=== PATIENT | male | born 1950 | race Caucasian/White ===

== ENCOUNTER 2021-08-26 18:21 | Emergency (ER) | payer OTHER ==
--- OUTSIDE RECORDS SUMMARY | 2021-08-26 18:23 | XMS REPORT | Continuity of Care Document ---
:1950 Author Organization [facility] t Address [address] [place] [address] [address]. [address] [place] [address] Care Team Providers Name Role Phone Julio Joshi MD Primary Care Physician King GEENA MD, C Attending Clinician Tanja QIU Attending Clinician TANJA Attending Clinician Unavailable Payers Payer Name Policy Type Policy Number Effective Date Expiration Date S ource Problems Condition Condition Condition Status Onset Resolution Last Treating Co mments Source Name Details Category Date Date Treatment Clinician Date No known No known Disease Unive rs active active ity of problems problems [facility] Allergies, Adverse Reactions, Alerts Allergy Allergy Status Severity Reaction(s) Onset Inactive Treating Comm ents Source Name Type Date Date Clinician LEVOFLOX DRUG Active Other-Cmnt Univ ers ACIN INGREDI 08-26 ity of 00:00: [place] [facility] MORPHINE DRUG Active Anaphylaxis Uni vers INGREDI 08-26 ity of 00:00: 00 [facility] HYDROMOR DRUG Active Unknown-Cmnt 0 Un anil PHONE INGREDI 08-26 ity of 00:00: [place] 00 [facility] SHELLFIS DRUG Active Unknown-Cmnt 0 Un anil H INGREDI 08-26 ity of DERIVED 00:00: 00 Medical [facility] Hydromor Propensi Active Unknown - 0 Uni vers phone ty to See comments 08-26 ity of adverse 00:00: [place] reaction 00 Medical s Branch Ibuprofe Propensi Active Anaphylaxis 0 U nivers n ty to 08-26 ity of adverse 00:00: [place] reaction 00 Medical s [facility] Levoflox Propensi Active Other - See 0 aggitate d Univers acin ty to comments 1-14 ity of adverse 00:00: [place] reaction 00 [facility] [place] Morphine Propensi Active Anaphylaxis U nivers ty to 1-14 ity of adverse 00:00: [place] reaction Medical [facility] [place] Shellfis Propensi Active Unknown - Uni vers h ty to See comments -14 ity of Derived adverse 00:00: [place] reaction 00 Medical [facility] IBUPROFE DRUG Active Anaphylaxis Uni vers N INGREDI 1-14 ity of 00:00: [place] 00 Medical [place] NO KNOWN Drug Active Univers ALLERGIE Class ity of S [facility] Social History Social Habit Start Date Stop Date Quantity Comments Source Exposure to Not sure [facility] SARS-CoV-2 (event) [facility] Tobacco use and 2021-08-26 2021-08-26 Never used [facility] exposure 00:00:00 00:00:00 [facility] Sex Ass[birth year] [facility] 00:00:00 00:00:00 [facility] Smoking Status Start Date Stop Date Source Never smoker [facility] Medications Ordered Filled Start Stop Current Ordering Indication Dosage Frequency Signature Comments Components Source Medication Medication Date Date Medication? Clinician (SIG) Name Name ADRIANETUS Yes Univers SOLOSTAR 1-08 ity of U-100 00:00: [place] INSULIN 100 00 Medical unit/mL (3 Branch mL) injection JARDIANCE 2020-08 Yes Univers 10 mg 2-21 ity of 00:00: [place] 00 [facility] [place] metFORMIN 2020-08 Yes Univers 1,000 mg 2-21 ity of tablet 00:00: [place] 00 [facility] busPIRone 2020-08 Yes Univers 7.5 mg 2-21 ity of tablet 00:00: [place] 00 Medical [place] PARoxetine 2020-08 Yes Univers 40 mg 2-21 ity of tablet 00:00: [place] 00 [facility] donepeziL 2020-08 Yes Univers 10 mg 2-17 ity of tablet 00:00: [place] [facility] [place] HUMALOG 2020-08 Yes Univers KWIKPEN 1-27 ity of INSULIN 100 00:00: [place] unit/mL 00 Medical injection Branch tamsulosin 2020-08 Yes Univers 0.4 mg 24 1-27 ity of hr capsule 00:00: [place] 00 [facility] Vital Signs Vital Name Observation Time Observation Value Comments Source Systolic blood 2021-08-26 17:05:00 139 mm[Hg] Univer sity of pressure [facility] Diastolic blood 2021-08-26 17:05:00 81 mm[Hg] Unive rsity of pressure [facility] Heart rate 2021-08-26 17:05:00 80 [facility] 2021-08-26 17:05:00 36.78 [place] Respiratory rate 2021-08-26 17:05:00 17 /min [facility] Body height 2021-08-26 17:05:00 175.3 cm [facility] Body weight 2021-08-26 17:05:00 118.616 kg [facility] BMI 2021-08-26 17:05:00 38.62 kg/m2 [facility] Oxygen saturation in 2021-08-26 17:05:00 98 /min [facility] Arterial blood by [facility] Pulse oximetry Branch Procedures This patient has no known procedures. Encounters Start End Encounter Admission Attending Care Care Encounter Source Date/Time Date/Time Type Type Clinicians Facility Department ID 2021-08-26 2021-08-26 Urgent Ac Yu Carl [facility] [id number] [facility] 11:00:00 11:20:00 [facility] [id number] [facility] [id number] Jez as CECILY?BLEA [id number] Oh king [address] MEDICAL OFFICE BUILDING 2021-08-26 2021-08-26 Outpatient Cedrick AGRAWAL [facility] [id number] [facility] 11:00:00 11:00:00 [facility] Results This patient has no known results.
[2021-08-26] MEDS ORDERED: ACETAMINOPHEN 500 MG TAB ONE (20:02)
[2021-08-26 20:14] LABS: Protime INR 1.23
[2021-08-26 20:17] LABS: Absolute Lymphocytes (CBC) 1.1 K/uL (0.7-4.9); Hematocrit 42.1 % (39.6-49.0); Lymphocytes % 21.9 % (15.3-44.8); MPV 8.4 fL (7.6-11.3); RBC Red Blood Cell Count 4.86 M/uL (4.33-5.43)
--- NOTE | 2021-08-26 20:33 | RAD REPORT ---
EXAM DESCRIPTION: Krista Single View08/26/2021 8:21 pm CLINICAL HISTORY: Chest pain COMPARISON: none FINDINGS: The lungs appear clear of acute infiltrate. The heart is normal size IMPRESSION: No acute abnormalities displayed
[2021-08-26 20:36] LABS: Albumin 3.7 g/dL (3.4-5.0); Bilirubin Direct 0.2 mg/dL (0-0.2); Bilirubin Total 0.6 mg/dL (0.2-1.0); Potassium 4.6 mmol/L (3.5-5.1); Protein, Total 7.5 g/dL (6.4-8.2); Troponin High Sensitivity 11.7 pg/mL (<58.9)
[2021-08-26 20:52] LABS: Magnesium 2.1 mg/dL (1.8-2.4)
[2021-08-26 22:17] LABS: Urine Blood Trace-intact (Negative); Urine Glucose 3+ (Negative); Urine Protein Negative (Negative); Urine Specific Gravity >=1.030 (1.005-1.030)
[2021-08-26] MEDS ORDERED: NA CHLORIDE 0.9% 0 ML ONE (22:38)
[2021-08-26] MEDS ORDERED: ONDANSETRON 4 MG/2 ML VIAL ONE (22:46)
[2021-08-26] MEDS ORDERED: NA CHLORIDE 0.9% 1,000 ML ONE (22:47)
[2021-08-26] MEDS ORDERED: ONDANSETRON 4 MG (ODT) TAB ONE (22:54)
[2021-08-26 23:25] LABS: SARS-COV-2 RT PCR POSITIVE (NEGATIVE)
--- NOTE | 2021-08-27 00:32 | EDPHYS ---
Physician Documentation [facility] Name: Marcelino Mccall Age: 71 yrs Sex: Male : 1950 Arrival Date: 08/26/2021 Time: 18:26 Bed 24 Private MD: ED Physician Jorge Griffin HPI: 08/26 22:27 This 71 yrs old Male presents to ER via Ambulatory with complaints of Nausea, Dizziness.mh7 22:27 The patient or guardian reports cough, that is intermittent, described as moderate, mh7 with productive sputum, that is white, flu symptoms, arthralgias, myalgias, Sore throat, congestion. Onset: The symptoms/episode began/occurred 2 day(s) ago. Severity of symptoms: At their worst the symptoms were moderate, 2 day(s) ago, in the emergency department the symptoms have improved, moderately. Modifying factors: The symptoms are alleviated by nothing, the symptoms are aggravated by nothing. Associated signs and symptoms: Pertinent positives: chest pain, with cough, Pertinent negatives: diarrhea, ear ache, fever, rhinorrhea, vomiting. Historical: - Allergies: 19:38 Ibuprofen; ld1 19:38 Iodine; ld1 19:38 Levaquin; ld1 19:38 Morphine; ld1 19:38 Dilaudid; ld1 - Home Meds: 19:38 metformin 1,000 mg Oral tab 1 tab 2 times per day [Active]; Jardiance 10 mg oral tab 1 ld1 tab once daily [Active]; Lantus Sub-Q [Active]; Humalog Sub-Q [Active]; donepezil 10 mg oral tab 1 tab once daily [Active]; buspirone 7.5 mg Oral tab 1 tab 2 times per day [Active]; tamsulosin 0.4 mg oral cap 1 cap once daily [Active]; paroxetine HCl 40 mg oral tab 1 tab once daily [Active]; - PMHx: 19:38 Diabetes mellitus; Liver disease; ld1 - PSHx: 19:38 None; ld1 - Immunization history:: Adult Immunizations not up to date, Client reports having NOT received the Covid vaccine. - Social history:: Smoking status: Patient denies any tobacco usage or history of. Patient/guardian denies using alcohol. ROS: 22:27 Constitutional: Negative for fever, chills, and weight loss, Eyes: Negative for injury, mh7 pain, redness, and discharge, Neck: Negative for injury, pain, and swelling. 22:27 Back: Negative for injury and pain, : Negative for injury, bleeding, discharge, and swelling, MS/Extremity: Negative for injury and deformity, Skin: Negative for injury, rash, and discoloration, Neuro: Negative for headache, weakness, numbness, tingling, and seizure, Psych: Negative for depression, anxiety, suicide ideation, homicidal ideation, and hallucinations, Allergy/Immunology: Negative for hives, rash, and allergies, Endocrine: Negative for neck swelling, polydipsia, polyuria, polyphagia, and marked weight changes, Hematologic/Lymphatic: Negative for swollen nodes, abnormal bleeding, and unusual bruising. 22:27 Abdomen/GI: Negative for abdominal pain, vomiting, diarrhea, constipation, abdominal cramps, abdominal distension, anorexia, dysphagia, hematemesis, black/tarry stool, rectal pain, rectal bleeding, bowel incontinence, flatulence. Exam: 22:27 Constitutional: This is a well developed, well nourished patient who is awake, alert, mh7 and in no acute distress. Head/Face: Normocephalic, atraumatic. Eyes: Pupils equal round and reactive to light, extra-ocular motions intact. Lids and lashes normal. Conjunctiva and sclera are non-icteric and not injected. Cornea within normal limits. Periorbital areas with no swelling, redness, or edema. ENT: Nares patent. No nasal discharge, no septal abnormalities noted. Tympanic membranes are normal and external auditory canals are clear. Oropharynx with no redness, swelling, or masses, exudates, or evidence of obstruction, uvula midline. Mucous membranes moist. Neck: Trachea midline, no thyromegaly or masses palpated, and no cervical lymphadenopathy. Supple, full range of motion without nuchal rigidity, or vertebral point tenderness. No Meningismus. Chest/axilla: Normal chest wall appearance and motion. Nontender with no deformity. No lesions are appreciated. Cardiovascular: Regular rate and rhythm with a normal S1 and S2. No gallops, murmurs, or rubs. Normal PMI, no JVD. No pulse deficits. Respiratory: Lungs have equal breath sounds bilaterally, clear to auscultation and percussion. No rales, rhonchi or wheezes noted. No increased work of breathing, no retractions or nasal flaring. Abdomen/GI: Soft, non-tender, with normal bowel sounds. No distension or tympany. No guarding or rebound. No evidence of tenderness throughout. Back: No spinal tenderness. No costovertebral tenderness. Full range of motion. Skin: Warm, dry with normal turgor. Normal color with no rashes, no lesions, and no evidence of cellulitis. MS/ Extremity: Pulses equal, no cyanosis. Neurovascular intact. Full, normal range of motion. Neuro: Awake and alert, GCS 15, oriented to person, place, time, and situation. Cranial nerves II-XII grossly intact. Motor strength 5/5 in all extremities. Sensory grossly intact. Cerebellar exam normal. Normal gait. Psych: Awake, alert, with orientation to person, place and time. Behavior, mood, and affect are within normal limits. Vital Signs: 19:36 BP 130 / 68; Pulse 74; Resp 18; Temp 98.0(O); Pulse Ox 98% on R/A; Weight 114.31 kg; ld1 Height 5 ft. 9 in. (175.26 cm); Pain 5/10; 22:51 BP 139 / 71; Pulse 72; Resp 16 S; Pulse Ox 96% on R/A; bb 08/27 00:00 BP 120 / 65; Pulse 72; Resp 16 S; Pulse Ox 96% on R/A; bb 01:02 BP 134 / 81; Pulse 73; Resp 14 S; Temp 98.5(O); Pulse Ox 95% on R/A; bb 08/26 19:36 Body Mass Index 37.21 (114.31 kg, 175.26 cm) ld1 MDM: 00:25 Differential Diagnosis: Bronchitis Influenza Upper Respiratory Infection Pharyngitis mh7 Asthma Exacerbation Viral Syndrome Pneumonia. Data reviewed: vital signs, nurses notes, lab test result(s), cardiac enzymes, CBC, electrolytes, Flu: negative urinalysis, COVID-positive, EKG, radiologic studies, CT scan, plain films. Data interpreted: Pulse oximetry: on room air is 97 %. Interpretation: normal. Counseling: I had a detailed discussion with the patient and/or guardian regarding: the historical points, exam findings, and any diagnostic results supporting the discharge/admit diagnosis, lab results, radiology results, to return to the emergency department if symptoms worsen or persist or if there are any questions or concerns that arise at home. Response to treatment: the patient's symptoms have markedly improved after treatment, the patient is now symptom free, patient is well hydrated. ED course: Well-appearing, no acute distress, vital signs stable, no focal neurological deficits. No headache, dizziness, chest pain, shortness of breath, nausea, vomiting, or other complaints. 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 Patient and family reports that these findings are chronic due to neurological issue about 3 years ago. He denies any symptoms since that time. He declines any further evaluation for these findings at this time. He request to be discharged to ED at this time. He will follow-up with his primary doctor but will return to ED if worsening of symptoms or other urgent concerns.. 00:32 Patient medically screened. [facility] 08/26 19:32 Order name: Basic Metabolic Panel; Complete Time: 21:57 08/26 19:32 Order name: CBC with Diff; Complete Time: 21:57 08/26 19:32 Order name: LFT's; Complete Time: 21:57 08/26 19:32 Order name: Magnesium; Complete Time: 21:57 08/26 19:32 Order name: NT PRO-BNP; Complete Time: 21:57 08/26 19:32 Order name: PT-INR; Complete Time: 21:57 08/26 19:32 Order name: Troponin HS; Complete Time: 21:57 08/26 19:32 Order name: XRAY Chest (1 view); Complete Time: 21:57 08/26 21:58 Order name: COVID-19/FLU A+B (Document "Date of Onset" if Symptomatic); Complete Time: [facility] 23:26 08/26 22:17 Order name: Urine Dipstick-Ancillary; Complete Time: 22:23 [facility] 08/26 22:23 Order name: Rapid Strep [facility] 08/26 22:35 Order name: CT Head Brain wo Cont [facility] 08/26 19:32 Order name: EKG; Complete Time: 19:33 08/26 19:32 Order name: Cardiac monitoring; Complete Time: 22:44 08/26 19:32 Order name: EKG - Nurse/Tech; Complete Time: 19:58 08/26 19:32 Order name: IV Saline Lock; Complete Time: 19:58 08/26 19:32 Order name: Labs collected and sent; Complete Time: 19:58 08/26 19:32 Order name: O2 Per Protocol; Complete Time: 20:02 08/26 19:32 Order name: O2 Sat Monitoring; Complete Time: 20:02 08/26 21:59 Order name: Urine Dipstick-Ancillary (obtain specimen); Complete Time: 22:13 [facility] Administered Medications: 08/26 20:02 Drug: Tylenol 1000 mg Route: PO; ld1 21:55 Follow up: Response: No adverse reaction 22:50 Drug: NS 0.9% 500 ml Route: IV; Rate: bolus; Site: right forearm; 08/27 00:00 Follow up: IV Status: Completed infusion; IV Intake: 500ml 08/26 22:55 Drug: Zofran (Ondansetron) 4 mg Route: IVP; Site: Other; 08/27 00:00 Follow up: Response: No adverse reaction bb Disposition Summary: 08/27/21 00:32 Discharge Ordered Location: Home [facility] Problem: new [facility] Symptoms: have improved [facility] Condition: Stable [facility] Diagnosis - Coronavirus infection, unspecified [facility] Followup: [facility] - With: Private Physician - When: 1 - 2 days - Reason: Worsening of condition, Recheck today's complaints, Continuance of care, Re-evaluation by your physician Followup: [facility] - With: Vishal Thomas MD - When: 1 - 2 days - Reason: Worsening of condition, Recheck today's complaints Discharge Instructions: - Discharge Summary Sheet [facility] - COVID-19 [facility] - COVID-19 Frequently Asked Questions [facility] - 10 Things You Can Do to Manage Your COVID-19 Symptoms at Home - [place] [address] - COVID-19: Quarantine vs. Isolation - [place] [address] Forms: - Medication Reconciliation Form [facility] - Thank You Letter [facility] - Antibiotic Education [facility] - Prescription Opioid Use [facility] Prescriptions: - albuterol sulfate 90 mcg/actuation Inhalation HFA aerosol inhaler - inhale 1 puff by INHALATION route every 4-6 hours As needed; 1 Inhaler; [facility] Refills: 0, Product Selection Permitted - ondansetron 4 mg Oral tablet,disintegrating - place 1 tablet by TRANSLINGUAL route every 8 hours As needed; 10 tablet; mh7 Refills: 0, Product Selection Permitted - Tessalon Perles 100 mg Oral Capsule - take 1 capsule by ORAL route every 8 hours As needed; 15 capsule; Refills: 0, [facility] Product Selection Permitted - Zithromax Z-Emerson 250 mg Oral Tablet - take 1 tablet by ORAL route as directed for 5 days Day 1 - take two (2) tablets mh7 one time. Day 2, 3, 4 , 5 take one (1) tablet once daily.; 6 tablet; Refills: 0, Product Selection Permitted Signatures: Dispatcher [employer] Nakita Pitts, Jorge Lizama RN, MD MD 7 Yanet Oliver RN RN ld1
--- NOTE | 2021-08-27 00:32 | ER ---
Nurse's Notes [facility] Name: Marcelino Mccall Age: 71 yrs Sex: Male : 1950 Arrival Date: 08/26/2021 Time: 18:26 Bed 24 Private MD: Diagnosis: Coronavirus infection, unspecified Presentation: 08/26 19:36 Chief complaint: Patient states: Headache, cough causing chest pain, joints ache, ld1 throat hurts X two days. Unable to sleep due to pain, pt reporting exhaustion. Coronavirus screen: Client presents with at least one sign or symptom that may indicate coronavirus-19. Standard/surgical mask placed on the client. Ebola Screen: No symptoms or risks identified at this time. Initial Sepsis Screen: Does the patient meet any 2 criteria? No. Patient's initial sepsis screen is negative. Does the patient have a suspected source of infection? No. Patient's initial sepsis screen is negative. Risk Assessment: Do you want to hurt yourself or someone else? Patient reports no desire to harm self or others. Onset of symptoms was August 26, 2021. 19:36 Method Of Arrival: Ambulatory ld1 19:36 Acuity: SZUI 3 ld1 Triage Assessment: 19:38 General: Appears in no apparent distress. uncomfortable, Behavior is calm, cooperative, ld1 appropriate for age. Pain: Complains of pain in face and mid-sternal area Pain does not radiate. Pain currently is 5 out of 10 on a pain scale. at worst was 10 out of 10 on a pain scale. Quality of pain is described as sharp, throbbing, Pain began gradually, Is intermittent. EENT: No signs and/or symptoms were reported regarding the EENT system. Neuro: Level of Consciousness is awake, alert, obeys commands, Oriented to person, place, time, situation, Appropriate for age. Cardiovascular: Capillary refill < 3 seconds Patient's skin is warm and dry. Respiratory: Airway is patent Respiratory effort is even, unlabored, Respiratory pattern is regular, symmetrical. Respiratory: Reports cough that is. GI: Abdomen is round non-distended, obese, Reports nausea, vomiting. : No signs and/or symptoms were reported regarding the genitourinary system. Derm: No signs and/or symptoms reported regarding the dermatologic system. Musculoskeletal: Reports pain in chest. Historical: - Allergies: 19:38 Ibuprofen; ld1 19:38 Iodine; ld1 19:38 Levaquin; ld1 19:38 Morphine; ld1 19:38 Dilaudid; ld1 - Home Meds: 19:38 metformin 1,000 mg Oral tab 1 tab 2 times per day [Active]; Jardiance 10 mg oral tab 1 ld1 tab once daily [Active]; Lantus Sub-Q [Active]; Humalog Sub-Q [Active]; donepezil 10 mg oral tab 1 tab once daily [Active]; buspirone 7.5 mg Oral tab 1 tab 2 times per day [Active]; tamsulosin 0.4 mg oral cap 1 cap once daily [Active]; paroxetine HCl 40 mg oral tab 1 tab once daily [Active]; - PMHx: 19:38 Diabetes mellitus; Liver disease; ld1 - PSHx: 19:38 None; ld1 - Immunization history:: Adult Immunizations not up to date, Client reports having NOT received the Covid vaccine. - Social history:: Smoking status: Patient denies any tobacco usage or history of. Patient/guardian denies using alcohol. Screenin:54 Abuse screen: Denies threats or abuse. Nutritional screening: No deficits noted. bb Tuberculosis screening: No symptoms or risk factors identified. Fall Risk None identified. Assessment: 21:54 General: Appears in no apparent distress. Behavior is calm, cooperative. Neuro: Level bb of Consciousness is awake, alert, obeys commands, Oriented to person, place, time, situation. Cardiovascular: Capillary refill < 3 seconds Patient's skin is warm and dry. Respiratory: Respiratory effort is even, unlabored. GI: Abdomen is round. Derm: Skin is normal. Musculoskeletal: Circulation, motion, and sensation intact. 22:50 Reassessment: Patient is alert, oriented x 3, equal unlabored respirations, skin bb warm/dry/pink. IV site intact, patent with fluids infusing. 23:59 Reassessment: Patient is alert, oriented x 3, equal unlabored respirations, skin bb warm/dry/pink. family at bedside awaiting completion of diagnostic tests. 08/27 01:01 Reassessment: Patient is alert, oriented x 3, equal unlabored respirations, skin bb warm/dry/pink. pt verbalized understanding of and agrees to plan of care discharge instructions given pt ambulated with steady gait to exit accompanied by family. Vital Signs: 08/26 19:36 BP 130 / 68; Pulse 74; Resp 18; Temp 98.0(O); Pulse Ox 98% on R/A; Weight 114.31 kg; ld1 Height 5 ft. 9 in. (175.26 cm); Pain 5/10; 22:51 BP 139 / 71; Pulse 72; Resp 16 S; Pulse Ox 96% on R/A; bb 08/27 00:00 BP 120 / 65; Pulse 72; Resp 16 S; Pulse Ox 96% on R/A; bb 01:02 BP 134 / 81; Pulse 73; Resp 14 S; Temp 98.5(O); Pulse Ox 95% on R/A; bb 08/26 19:36 Body Mass Index 37.21 (114.31 kg, 175.26 cm) ld1 ED Course: 08/26 18:26 Patient arrived in ED. ds1 19:38 Triage completed. ld1 19:38 Arm band placed on left wrist. ld1 19:58 Inserted saline lock: 20 gauge in right forearm, using aseptic technique. Blood ld1 collected. 20:21 XRAY Chest (1 view) In Process Unspecified. EDMS 21:53 Nakita Bhatti, RN is Primary Nurse. bb 21:54 Patient has correct armband on for positive identification. Placed in gown. Bed in low bb position. Call light in reach. Side rails up X 1. Adult w/ patient. 21:54 IV is intact. bb 21:56 Jorge Griffin MD is Attending Physician. 7 23:32 CT Head Brain wo Cont In Process Unspecified. EDMS 08/27 00:31 Vishal Thomas MD is Referral Physician. 7 01:02 No provider procedures requiring assistance completed. IV discontinued, intact, bb bleeding controlled, No redness/swelling at site. Pressure dressing applied. Administered Medications: 08/26 20:02 Drug: Tylenol 1000 mg Route: PO; ld1 21:55 Follow up: Response: No adverse reaction bb 22:50 Drug: NS 0.9% 500 ml Route: IV; Rate: bolus; Site: right forearm; bb 08/27 00:00 Follow up: IV Status: Completed infusion; IV Intake: 500ml bb 08/26 22:55 Drug: Zofran (Ondansetron) 4 mg Route: IVP; Site: Other; bb 08/27 00:00 Follow up: Response: No adverse reaction bb Intake: 00:00 IV: 500ml; Total: 500ml. bb Outcome: 00:32 Discharge ordered by . boogie 01:03 Discharged to home ambulatory, with family. bb 01:03 Condition: stable 01:03 Discharge instructions given to patient, family, Instructed on discharge instructions, follow up and referral plans. medication usage, Demonstrated understanding of instructions, follow-up care, medications, Prescriptions given X 4. 01:05 Patient left the ED. bb Signatures: Dispatcher [employer] EDKS RicksAmelie owens ds1 Nakita Bhatti RN RN Jorge Riddle MD MD mh7 Yanet Oliver RN RN ld1
[2021-08-27 01:14] VITALS: BP 134/81; TEMP 98.5; O2SAT 95
--- NOTE | 2021-08-28 21:31 | RAD REPORT ---
EXAM DESCRIPTION: CT - Head Brain Wo Cont - 08/27/2021 5:58 am CLINICAL HISTORY: 71-year-old male with dizziness and headache. COMPARISON: None. TECHNIQUE: CT brain without contrast. This exam was performed according to our departmental dose opt imization program which includes use of automated exposure control, adjustment of the mA and/or kV ac cording to patient size and/or use of iterative reconstruction technique. FINDINGS: Multifocal regions of patchy hypoattenuation are present in a subcortical and periventricu lar deep white matter distribution, nonspecific; however, most likely represent small vessel ischemic disease, age indeterminate. Focal area of age-indeterminate, however suspected at least subacute infarction present within the LE FT temporal occipital lobe. Please correlate with patient clinical findings and consider follow-up MR I. The area of diffuse transcortical hypoattenuation measures approximately 1.8 x 1.9 cm, (series 201, i mage 21).. The possibility of underlying mass is considered less likely in the differential. The ventricles, and sulci are enlarged compatible with underlying volume loss. The reveles-white matte r differentiation is preserved. There is no mass effect, midline shift, intra- or extra-axial fluid collection/acute hemorrhage. The osseous structures are unremarkable. The paranasal sinuses and mastoid air cells are clear. IMPRESSION: 1. Focal area of age-indeterminate, however suspected at least to subacute infarction within the LEFT temporal occipital lobe as detailed above. 2. No acute intracranial hemorrhage. 3. Nonspecific white matter change most likely small vessel ischemic disease, age indeterminate. 4. CT is insensitive for early evaluation of acute stroke. If there is clinical concern for acute ischemia, an MRI may be considered. Electronically signed by: Stacey Gu MD 08/26/2021 11:48 PM [employer]ATHER ANCHOR Due to temporary technical issues with the PACS/Fluency reporting system, reports are being signed by the in house radiologists without review as a courtesy to insure prompt reporting. The interpreting radiologist is fully responsible for the content of the report.
== END 2021-08-27 01:05 | disposition home or self-care (01) ==
LOC: ER 18:21
DX: U07.1 COVID-19 (principal); E11.9 Type 2 diabetes mellitus without complications; Z79.4 Long term (current) use of insulin; Z88.6 Allergy status to analgesic agent; Z88.1 Allergy status to other antibiotic agents; Z88.5 Allergy status to narcotic agent; Z91.048 Other nonmedicinal substance allergy status
CPT/HCPCS: 96361; 93005; 85025; 80048; 36415; 83735; 85610; 80076; 81003; 84484; 83880; 0240U; 70450; 71045; 96374; 99284; J7030; J2405

== ENCOUNTER 2021-10-06 16:00 | Inpatient (IN) | payer OTHER ==
--- OUTSIDE RECORDS SUMMARY | 2021-10-06 16:03 | XMS REPORT | Continuity of Care Document ---
:1950 Author Organization [facility] t Address [address] [place] [address] Care Team Providers Name Role Phone JULIO JOSHI Primary Care Physician Unavailable Jo-Ann SAMUEL Attending Clinician Unavailable Julio Joshi MD Attending Clinician Tracie GARCIA Attending Clinician Unavailable TANJA Attending Clinician Unavailable King GEENA MD, C Attending Clinician Tanja QIU Attending Clinician Jo-Ann SAMUEL Admitting Clinician Unavailable Payers Payer Name Policy Type Policy Number Effective Date Expiration Date S ource HUMA[employer] CHOICE [id number] 2021 00:00:00 Problems Condition Condition Condition Status Onset Resolution Last Treating Co mments Source Name Details Category Date Date Treatment Clinician Date No known No known Disease Unive rs active active ity of problems problems [facility] Allergies, Adverse Reactions, Alerts Allergy Allergy Status Severity Reaction(s) Onset Inactive Treating Comm ents Source Name Type Date Date Clinician Ibuprofe Propensi Active Anaphylaxis U nivers n ty to 1-14 ity of adverse 00:00: [place] reaction 00 [facility] Levoflox Propensi Active Other - See aggitate d Univers acin ty to comments 1-14 ity of adverse 00:00: [place] reaction 00 [facility] s [facility] Morphine Propensi Active Anaphylaxis 0 U nivers ty to 1-14 ity of adverse 00:00: [place] reaction 00 [facility] Shellfis Propensi Active Unknown - Uni vers h ty to See comments -14 ity of Derived adverse 00:00: [place] reaction 00 [facility] s [facility] IBUPROFE DRUG Active Anaphylaxis Uni vers N INGREDI 1-14 ity of 00:00: [place] 00 [facility] LEVOFLOX DRUG Active Other-Cmnt Univ ers ACIN INGREDI -14 ity of 00:00: Medical Branch MORPHINE DRUG Active Anaphylaxis Uni vers INGREDI -14 ity of 00:00: [place] [facility] HYDROMOR DRUG Active Unknown-Cmnt 0 Un anil PHONE INGREDI -14 ity of 00:00: 00 Medical Branch SHELLFIS DRUG Active Unknown-Cmnt 0 Un anil H INGREDI -14 ity of DERIVED 00:00: [place] 00 [facility] Hydromor Propensi Active Unknown - Uni vers phone ty to See comments 08-26 ity of adverse 00:00: [place] reaction 00 Medical s [place] NO KNOWN Drug Active [facility] ALLERGIE Class ity of [facility] Social History Social Habit Start Date Stop Date Quantity Comments Source Exposure to Not sure [facility] SARS-CoV-2 (event) Medica Branch Tobacco use and 2021-08-26 2021-08-26 Never used [facility] exposure 00:00:00 00:00:00 [facility] Sex [birth year] [facility] 00:00:00 00:00:00 [facility] Smoking Status Start Date Stop Date Source Never smoker [facility] Medications Ordered Filled Start Stop Current Ordering Indication Dosage Frequency Signature Comments Components Source Medication Medication Date Date Medication? Clinician (SIG) Name Name YO Yes Univers SOLOSTAR 1-08 ity of U-100 00:00: [place] INSULIN 100 00 Medical unit/mL (3 Branch mL) injection LANTUS Yes Univers SOLOSTAR 1-08 ity of U-100 00:00: [place] INSULIN 100 00 Medical unit/mL (3 Branch mL) injection LANTUS Yes Univers SOLOSTAR 1-08 ity of U-100 00:00: [place] INSULIN 100 00 Medical unit/mL (3 Branch mL) injection JARDIANCE 2020-08 Yes Univers 10 mg 2-21 ity of 00:00: 00 Medical Branch metFORMIN 2020-08 Yes Univers 1,000 mg 2-21 ity of tablet 00:00: 00 Medical Branch busPIRone 2020-08 Yes Univers 7.5 mg 2-21 ity of tablet 00:00: [place] [facility] PARoxetine 2020-08 Yes Univers 40 mg 2-21 ity of tablet 00:00: [place] [facility] JARDIANCE 2020-08 Yes Univers 10 mg 2-21 ity of 00:00: [place] [address] Medical Branch metFORMIN 2020-08 Yes Univers 1,000 mg 2-21 ity of tablet 00:00: [place] [address] Medical Branch busPIRone 2020-08 Yes Univers 7.5 mg 2-21 ity of tablet 00:00: [address] Branch PARoxetine 2020-08 Yes Univers 40 mg 2-21 ity of tablet 00:00: [place] [address] Medical Branch JARDIANCE 2020-08 Yes Univers 10 mg 2-21 ity of 00:00: [place] [address] Medical Branch metFORMIN 2020-08 Yes Univers 1,000 mg 2-21 ity of tablet 00:00: [address] Branch busPIRone 2020-08 Yes Univers 7.5 mg 2-21 ity of tablet 00:00: [address] Branch PARoxetine 2020-08 Yes Univers 40 mg 2-21 ity of tablet 00:00: [address] Branch donepeziL 2020-08 Yes Univers 10 mg 2-17 ity of tablet 00:00: [place] [facility] donepeziL 2020-08 Yes Univers 10 mg 2-17 ity of tablet 00:00: [place] [facility] [place] donepeziL 2020-08 Yes Univers 10 mg 2-17 ity of tablet 00:00: [place] [address] Medical Branch HUMALOG 2020-08 Yes Univers KWIKPEN 1-27 ity of INSULIN 100 00:00: [place] unit/mL Medical injection Branch tamsulosin 2020-08 Yes Univers 0.4 mg 24 1-27 ity of hr capsule 00:00: [place] [facility] HUMALOG 2020-08 Yes Univers KWIKPEN 1-27 ity of INSULIN 100 00:00: [place] unit/mL Medical injection Branch tamsulosin 2020-08 Yes Univers 0.4 mg 24 1-27 ity of hr capsule 00:00: [place] [address] Medical Branch HUMALOG 2020-08 Yes Univers KWIKPEN 1-27 ity of INSULIN 100 00:00: [place] unit/mL Medical injection Branch tamsulosin 2020-08 Yes Univers 0.4 mg 24 1-27 ity of hr capsule 00:00: [address] Vital Signs Vital Name Observation Time Observation Value Comments Source Systolic blood 2021-08-26 17:05:00 139 mm[Hg] Univer sity of pressure [facility] Diastolic blood 2021-08-26 17:05:00 81 mm[Hg] Unive rsity of [facility] Heart rate 2021-08-26 17:05:00 80 /min [facility] Body temperature 2021-08-26 17:05:00 36.78 Eneida [facility] Respiratory rate 2021-08-26 17:05:00 17 /min [facility] Body height 2021-08-26 17:05:00 175.3 cm [facility] Body weight 2021-08-26 17:05:00 118.616 kg [facility] BMI 2021-08-26 17:05:00 38.62 kg/m2 [facility] Oxygen saturation in 2021-08-26 17:05:00 98 /min [facility] Arterial blood by [facility] Pulse oximetry Branch Procedures This patient has no known procedures. Encounters Start End Encounter Admission Attending Care Care Encounter Source Date/Time Date/Time Type Type Clinicians Facility Department ID 2021-09-29 [facility] [id number] Univers 15:56:[address] [facility] 2021-10-03 2021-10-03 Outpatient R [facility] [id number] Univers 15:15:00 15:15:[id number] [facility] 2021-10-03 2021-10-03 Outpatient R JIMMIE [facility] [id number] Univers 15:15:00 15:15:[address] [facility] 2021-09-05 2021-09-05 Malaika Joshi [facility] [id number] Univers 00:00:00 00:00:00 [facility] [id number] it y of Julio DONG [id number] Jez as CECILY?BLEA [id number] Sc king [address] MEDICAL OFFICE BUILDING 2021-08-27 2021-08-27 Telephone Speller, PHU [id number] Univers 00:00:00 00:00:00 Barbara ANEL [id number] it [facility] [id number] Jez as [id number] [address] 2021-08-26 2021-08-26 [facility] [id number] Univers 11:00:00 11:50:53 [facility] 2021-08-26 2021-08-26 Urgent Gigi Ac Carl [facility] [id number] Univers 11:00:00 11:20:00 [id number] [id number] Jez as CECILY?BLEA [id number] [facility] [address] MEDICAL OFFICE BUILDING Results This patient has no known results.
[2021-10-06 16:42] LABS: Absolute Lymphocytes (CBC) 1.5 K/uL (0.7-4.9); Hematocrit 41.8 % (39.6-49.0); MPV 8.4 fL (7.6-11.3); RBC Red Blood Cell Count 4.88 M/uL (4.33-5.43)
[2021-10-06] MEDS ORDERED: MECLIZINE HCL 12.5 MG TAB ONE (16:47)
[2021-10-06 16:49] LABS: Urine Blood Negative (Negative); Urine Glucose 3+ (Negative); Urine Protein Negative (Negative); Urine Specific Gravity 1.015 (1.005-1.030); Urine pH 6.5 (5.0-7.0)
[2021-10-06 16:52] LABS: Protime INR 1.19
--- NOTE | 2021-10-06 17:00 | RAD REPORT ---
EXAM DESCRIPTION: CT - CTHCSPWOC - 10/06/2021 4:46 pm CLINICAL HISTORY: Trauma, head and neck injury. dizziness COMPARISON: No comparisons TECHNIQUE: Axial 5 mm thick images of the head were obtained. Axial 2 mm thick images of the cervical spine were obtained with sagittal and coronal reconstruction images generated and reviewed. All CT scans are performed using dose optimization technique as appropriate and may include automated exposure control or mA/KV adjustment according to patient size. FINDINGS: CT HEAD WITHOUT CONTRAST: No acute hemorrhage, hydrocephalus or extra-axial collection is identified.Age indeterminate left occ ipital lobe infarct. The paranasal sinuses and mastoids are clear.The calvarium is intact. CT CERVICAL SPINE WITHOUT CONTRAST: No fracture or subluxation.No prevertebral soft tissues swelling is identified. Multilevel cervical s pondylosis with varying degrees of neural foraminal narrowing. Central spinal stenosis is present at the C6-7 level which is mild. Neural foraminal narrowing is moderate to severe, particularly at C4-5. IMPRESSION: Age indeterminate left occipital lobe cortical infarct.MRI could better assess. No intra cranial hemorrhage. No acute fracture traumatic malalignment of the cervical spine .
[2021-10-06 17:01] LABS: Urine Bacteria NONE SEEN /HPF (NONE SEEN); Urine RBC <5 /HPF (NONE SEEN)
--- NOTE | 2021-10-06 17:09 | RAD REPORT ---
EXAM DESCRIPTION: RAD - Chest Single View - 10/06/2021 5:04 pm CLINICAL HISTORY: dizziness COMPARISON: Chest Single View dated 08/26/2021 FINDINGS: Lines: None. Lungs: No evidence of edema or pneumonia. Pleural: No significant pleural effusions or pneumothorax. Cardiac: The heart size is within normal limits. Bones: No acute fractures. Right shoulder arthroplasty. Other: IMPRESSION: No acute cardiopulmonary disease.
[2021-10-06 17:10] LABS: Albumin 3.8 g/dL (3.4-5.0); Bilirubin Direct 0.2 mg/dL (0-0.2); Bilirubin Total 0.6 mg/dL (0.2-1.0); Magnesium 2.1 mg/dL (1.8-2.4); Protein, Total 7.3 g/dL (6.4-8.2); Troponin High Sensitivity 8.8 pg/mL (<58.9)
[2021-10-06] MEDS ORDERED: CLOPIDOGREL 75 MG TABLET ONE (17:45)
[2021-10-06] MEDS ORDERED: FOLIC ACID 5 MG/ML VIAL ONE (17:46)
--- NOTE | 2021-10-06 19:31 | EDPHYS ---
Physician Documentation [facility] Name: Marcelino Mccall Age: 71 yrs Sex: Male : 1950 Arrival Date: 10/06/2021 Time: 16:01 Bed 4 Private MD: Abraham Trejo V ED Physician Jacobo Stinson HPI: 10/06 16:34 This 71 yrs old Male presents to ER via Wheelchair with complaints of Fall Injury, Head cp Injury-Adult, Dizziness, trouble with balance. 16:35 The patient's problem is reported as off balance, dizziness. cp 16:35 Onset: The symptoms/episode began/occurred 1 week(s) ago, and became worse 2 day(s) cp ago. Duration: The episode is continuous. Context: caused patient to fall 2 days ago. Associated signs and symptoms: Pertinent negatives: abdominal pain, chest pain, numbness, seizure, vomiting, weakness. Patient's baseline: Neuro: alert and fully oriented, Motor: no deficits, Ambulation: walks without assistance, Speech: normal. Historical: - Allergies: 16:12 Dilaudid; tw2 16:12 Ibuprofen; tw2 16:12 Iodine; tw2 16:12 Levaquin; tw2 16:12 Morphine; tw2 - Home Meds: 16:12 buspirone 7.5 mg Oral tab 1 tab 2 times per day [Active]; donepezil 10 mg Oral tab 1 tw2 tab once daily [Active]; Jardiance 10 mg Oral tab 1 tab once daily [Active]; Lantus Sub-Q [Active]; Novolog U-100 Insulin aspart 100 unit/mL Sub-Q soln [Active]; metformin 1,000 mg Oral tab 1 tab 2 times per day [Active]; paroxetine HCl 40 mg Oral tab 1 tab once daily [Active]; tamsulosin 0.4 mg Oral cap 1 cap once daily [Active]; - PMHx: 16:12 diabetes mellitus; Liver disease; tw2 - PSHx: 16:12 Appendectomy; hip replacement; b/l knee replacement; b/l shoulder replacement; tw2 - Immunization history:: Client reports having NOT received the Covid vaccine. Flu vaccine is not up to date. - Social history:: Smoking status: Patient denies any tobacco usage or history of. ROS: 16:40 Constitutional: Negative for body aches, chills, fever, poor PO intake. cp 16:40 Cardiovascular: Negative for chest pain, palpitations. cp 16:40 Respiratory: Negative for cough, shortness of breath, wheezing. 16:40 Abdomen/GI: Negative for abdominal pain, vomiting, diarrhea, constipation. 16:40 Neuro: Positive for dizziness, gait disturbance, Negative for altered mental status, loss of consciousness, seizure activity, syncope, weakness. 16:40 All other systems are negative. Exam: 16:30 ECG was reviewed by the Attending Physician. cp 16:45 Constitutional: The patient appears in no acute distress, alert, awake, cp non-diaphoretic, non-toxic, well developed, well nourished. 16:45 Head/Face: Normocephalic, atraumatic. cp 16:45 Eyes: Periorbital structures: appear normal, Pupils: equal, round, and reactive to light and accomodation, Extraocular movements: intact throughout, Conjunctiva: normal, no exudate, no injection. 16:45 ENT: External ear(s): are unremarkable, Nose: is normal, Mouth: Lips: moist, Oral mucosa: pink and intact, moist, Posterior pharynx: Airway: no evidence of obstruction, patent. 16:45 Neck: ROM/movement: is normal, is supple, without pain, no range of motions limitations, no nuchal rigidity. 16:45 Chest/axilla: Inspection: normal, Palpation: is normal, no crepitus, no tenderness. 16:45 Cardiovascular: Rate: normal, Rhythm: regular, Edema: is not appreciated, JVD: is not appreciated. 16:45 Respiratory: the patient does not display signs of respiratory distress, Respirations: normal, no use of accessory muscles, no retractions, labored breathing, is not present, Breath sounds: are clear throughout, no decreased breath sounds, no stridor, no wheezing. 16:45 Abdomen/GI: Inspection: abdomen appears normal, Palpation: abdomen is soft and non-tender, in all quadrants. 16:45 Back: pain, is absent, ROM is normal. 16:45 Neuro: Orientation: to person, place \\T\\ time. Mentation: is normal, Cerebellar function: Romberg testing is negative, normal finger to nose testing, heel to angeles testing is normal, Motor: moves all fours, strength is normal, Sensation: no obvious gross deficits. 17:15 Radiologist reports: left occipital lobe infarct Vital Signs: 16:07 BP 153 / 75; Pulse 68; Resp 17; Temp 97.9(TE); Pulse Ox 100% on R/A; Weight 108.86 kg; tw2 Height 6 ft. 5 in. (195.58 cm); Pain 0/10; 16:25 BP 162 / 67; Pulse 69; Resp 18 S; Pulse Ox 99% on R/A; jg9 16:30 BP 152 / 71; Pulse 63; Resp 10 S; Pulse Ox 99% on R/A; jg9 17:00 BP 154 / 76; Pulse 63; Resp 11 S; Pulse Ox 98% ; jg9 17:30 BP 154 / 76; Pulse 68; Resp 11 S; Pulse Ox 97% ; jg9 19:53 BP 119 / 52; Pulse 81; Resp 18; Pulse Ox 98% on R/A; tw5 20:49 BP 138 / 72; Pulse 70; Resp 19 S; Pulse Ox 98% on R/A; as6 16:07 Body Mass Index 28.46 (108.86 kg, 195.58 cm) tw2 NIH Stroke Scale Scores: 16:45 NIHSS Score: 0 cp MDM: 16:30 Patient medically screened. 17:00 Differential diagnosis: CVA, TIA, metabolic disorder, drug effects. 18:04 Data reviewed: vital signs, nurses notes, lab test result(s), EKG, radiologic studies, cp CT scan, plain films. Test interpretation: by ED physician or midlevel provider: ECG, plain radiologic studies. Physician consultation: Abraham Trejo MD was called at 18:04, left message on voicemail. 20:00 Physician consultation: Abraham Trejo MD was contacted at 20:00, regarding admission, to the telemetry unit. patient's condition, would like consultation with Dr. Thomas. 10/06 16:32 Order name: Basic Metabolic Panel 10/06 16:32 Order name: CBC with Diff; Complete Time: 17:31 10/06 17:31 Interpretation: Normal except: PLT 146; RDW 16.7. 10/06 16:32 Order name: LFT's; Complete Time: 17:31 10/06 16:32 Order name: Magnesium; Complete Time: 17:31 cp 02 16:32 Order name: NT PRO-BNP; Complete Time: 17:31 cp 10/06 16:32 Order name: PT-INR; Complete Time: 17:31 cp 10/06 16:32 Order name: Troponin HS; Complete Time: 17:31 cp 10/06 16:32 Order name: Urine Microscopic Only; Complete Time: 17:31 cp 10/06 16:32 Order name: Basic Metabolic Panel; Complete Time: 17:31 EDMS 10/06 17:31 Interpretation: Normal except: GLUC 250; CRE 1.33; GFR 53. cp 02 16:49 Order name: Urine Dipstick-Ancillary EDMS 10/06 18:07 Order name: COVID-19 SARS RT PCR (Document "Date of Onset" if Symptomatic); Complete cp Time: 20:43 10/06 18:09 Order name: SARS-COV-2 RT PCR (Document "Date of Onset" if Symptomatic) em1 10/06 20:42 Order name: CKMB Creatine Kinase MB EDNE 10/06 16:32 Order name: XRAY Chest (1 view); Complete Time: 17:31 cp 10/06 16:32 Order name: EKG; Complete Time: 16:32 cp 10/06 16:32 Order name: Cardiac monitoring; Complete Time: 16:42 cp 10/06 16:32 Order name: CT Head C Spine; Complete Time: 17:31 cp 10/06 18:03 Interpretation: Reviewed report. cp 10/06 20:42 Order name: Echo with Doppler EDNE 10/06 20:42 Order name: CKMB Creatine Kinase MB; Complete Time: 20:43 EDMS 10/06 20:42 Order name: Creatine Phosphokinase EDMS 10/06 20:42 Order name: Creatine Phosphokinase; Complete Time: 20:43 EDMS 10/06 20:42 Order name: Lipid Profile EDNE 10/06 20:42 Order name: Lipid Profile; Complete Time: 20:43 EDMS 10/06 20:42 Order name: Stroke Protocol EDMS 10/06 20:42 Order name: Carotid Artery Bilateral EDMS 10/06 16:32 Order name: EKG - Nurse/Tech; Complete Time: 16:42 cp 10/06 16:32 Order name: IV Saline Lock; Complete Time: 16:42 cp 10/06 16:32 Order name: Labs collected and sent; Complete Time: 16:42 cp 10/06 16:32 Order name: O2 Per Protocol; Complete Time: 19:35 cp 10/06 16:32 Order name: O2 Sat Monitoring; Complete Time: 16:42 cp 10/06 16:32 Order name: Urine Dipstick-Ancillary (obtain specimen); Complete Time: 16:48 cp EC:30 Rate is 60 beats/min. Rhythm is regular. WA interval is normal. QRS interval is cp prolonged at 122 msec. QT interval is normal. Interpreted by me. Reviewed by me. Administered Medications: 16:57 Drug: Meclizine 25 mg Route: PO; jg9 17:15 Follow up: Response: No adverse reaction; Marked relief of symptoms jg9 17:47 Drug: foLIC Acid 1 mg Route: IVPB; Site: right antecubital; jg9 19:55 Follow up: Response: No adverse reaction; IV Status: Completed infusion; IV Intake: [id number] 17:47 Drug: PlaVIX (clopidogrel) 75 mg Route: PO; jg9 19:54 Follow up: Response: No adverse reaction tw5 19:54 Drug: Tylenol 1000 mg Route: PO; as6 20:36 Follow up: Response: No adverse reaction as6 Disposition Summary: 10/06/21 19:39 Hospitalization Ordered Hospitalization Status: Inpatient Admission cp Provider: Abraham Trejo cp Location: Telemetry/MedSurg (Inpatient) cp Condition: Stable(10/06/21 19:39) cp Problem: new(10/06/21 19:39) cp Symptoms: are unchanged(10/06/21 19:39) cp Bed/Room Type: Standard cp Room Assignment: 201(10/06/21 20:03) Diagnosis - Cerebral infarction, unspecified(10/06/21 19:39) cp - Dizziness and giddiness cp - Other abnormalities of gait and mobility cp Forms: - Medication Reconciliation Form cp - SBAR form cp NIH Stroke Scale - NIH Stroke Score Date: 10/06/2021 Time: 16:45 Total Score = 0 1a. Level of Consciousness (LOC) - 0(Alert) 1b. Level of Consciousness (LOC) (Month \\T\\ Age) - 0(Both) 1c. LOC Commands (Open \\T\\ Closes Eyes/[employer]) - 0(Both) 2. Best Gaze (Lateral Gaze Paresis) - 0(Normal) 3. Visual Field Loss - 0(No visual loss) 4. Facial Palsy - 0(Normal) 5a. Left Arm: Motor (10-second hold) - 0(No drift) 5b. Right Arm: Motor (10-second hold) - 0(No drift) 6a. Left Leg: Motor (5-second hold - always test supine) - 0(No drift) 6b. Right Leg: Motor (5-second hold - always test supine) - 0(No drift) 7. Limb Ataxia (finger/nose \\T\\ heel/angeles - test with eyes open) - 0(Absent) 8. Sensory Loss (pinprick arms/legs/face) - 0(Normal) 9. Best Language: Aphasia (description/naming/reading) - 0(No aphasia) 10. Dysarthria (speech clarity - read or repeat words) - 0(Normal) 11. Extinction and Inattention (visual/tactile/auditory/spatial/personal) - 0(No abnormality) Initials: cp Signatures: Dispatcher [employer] EDMS Camille Pemberton RN RN mw Alec Posada, NURA LYMAN cp Jolene Adkins RN RN tw2 Stephen Clifton RN RN as6 Caity Chapin RN RN jg9 Brii Conroy tw5 Corrections: (The following items were deleted from the chart) 18:09 18:09 SARS-COV-2 RT PCR ordered. EDMS EDMS 18:09 18:09 SARS-COV-2 RT PCR ordered. EDNE EDMS 19:38 19:30 Doctor cp cp 19:38 19:30 [facility] cp cp 19:38 19:30 Higher level of care cp cp 19:38 19:30 Stable cp cp 19:38 19:30 new cp cp 19:38 19:30 are unchanged cp cp 19:38 19:30 Cerebral infarction, unspecified cp cp 20:03 19:39 cp mw 10/07 20:48 10/06 19:16 ED course: consult with rafael [place] patient transferred to [facility] for further care as previously directed by DR Trejo. cp
--- NOTE | 2021-10-06 19:31 | ER ---
Nurse's Notes [facility] Name: Marcelino Mccall Age: 71 yrs Sex: Male : 1950 Arrival Date: 10/06/2021 Time: 16:01 Bed 4 Private MD: Abraham Trejo V Diagnosis: Cerebral infarction, unspecified;Dizziness and giddiness;Other abnormalities of gait and mobility Presentation: 10/06 16:07 Chief complaint: Patient states: 2 days ago i fell and hit my head and now i cant keep tw2 myself steady. any change in elevation i get dizzy. it is just hard to explain. i just cant stay right. i feel like my RIGHT side of my head is hollow. Spouse and/or significant other states: he was having some dizziness before the fall but this imbalance is different for him. Coronavirus screen: At this time, the client does not indicate any symptoms associated with coronavirus-19. Ebola Screen: Patient denies travel to an Ebola-affected area in the 21 days before illness onset. Initial Sepsis Screen: Does the patient meet any 2 criteria? No. Patient's initial sepsis screen is negative. Does the patient have a suspected source of infection? No. Patient's initial sepsis screen is negative. Risk Assessment: Do you want to hurt yourself or someone else? Patient reports no desire to harm self or others. Onset of symptoms was October 06, 2021. 16:07 Method Of Arrival: Wheelchair tw2 16:07 Acuity: SUZI 2 tw2 Triage Assessment: 16:15 General: Appears in no apparent distress. well groomed, Behavior is calm, cooperative, tw2 appropriate for age. Pain: Denies pain. Historical: - Allergies: 16:12 Dilaudid; tw2 16:12 Ibuprofen; tw2 16:12 Iodine; tw2 16:12 Levaquin; tw2 16:12 Morphine; tw2 - Home Meds: 16:12 buspirone 7.5 mg Oral tab 1 tab 2 times per day [Active]; donepezil 10 mg Oral tab 1 tw2 tab once daily [Active]; Jardiance 10 mg Oral tab 1 tab once daily [Active]; Lantus Sub-Q [Active]; Novolog U-100 Insulin aspart 100 unit/mL Sub-Q soln [Active]; metformin 1,000 mg Oral tab 1 tab 2 times per day [Active]; paroxetine HCl 40 mg Oral tab 1 tab once daily [Active]; tamsulosin 0.4 mg Oral cap 1 cap once daily [Active]; - PMHx: 16:12 diabetes mellitus; Liver disease; tw2 - PSHx: 16:12 Appendectomy; hip replacement; b/l knee replacement; b/l shoulder replacement; tw2 - Immunization history:: Client reports having NOT received the Covid vaccine. Flu vaccine is not up to date. - Social history:: Smoking status: Patient denies any tobacco usage or history of. Screenin:23 Abuse screen: Denies threats or abuse. Denies injuries from another. Nutritional jg9 screening: No deficits noted. Tuberculosis screening: No symptoms or risk factors identified. Fall Risk IV access (20 points). Gait- Weak (10 pts.). 16:23 Abuse screen: Denies threats or abuse. Denies injuries from another. Nutritional ontiveros screening: No deficits noted. Tuberculosis screening: No symptoms or risk factors identified. Fall Risk Assessment: 16:23 General: Appears in no apparent distress. distressed, Behavior is calm, cooperative. ontiveros Neuro: Reports dizziness, weakness. Cardiovascular: Reports lightheadedness. 19:52 Pain: Complains of pain in forehead Pain currently is 6 out of 10 on a pain scale. tw5 Quality of pain is described as pressure. Respiratory: Airway is patent Trachea midline. 19:57 General: Alycia Mccall () [phone]. tw5 20:36 General: Report given to Sharon Browning as6 Vital Signs: 16:07 BP 153 / 75; Pulse 68; Resp 17; Temp 97.9(TE); Pulse Ox 100% on R/A; Weight 108.86 kg; tw2 Height 6 ft. 5 in. (195.58 cm); Pain 0/10; 16:25 BP 162 / 67; Pulse 69; Resp 18 S; Pulse Ox 99% on R/A; jg9 16:30 BP 152 / 71; Pulse 63; Resp 10 S; Pulse Ox 99% on R/A; jg9 17:00 BP 154 / 76; Pulse 63; Resp 11 S; Pulse Ox 98% ; jg9 17:30 BP 154 / 76; Pulse 68; Resp 11 S; Pulse Ox 97% ; jg9 19:53 BP 119 / 52; Pulse 81; Resp 18; Pulse Ox 98% on R/A; tw5 20:49 BP 138 / 72; Pulse 70; Resp 19 S; Pulse Ox 98% on R/A; as6 16:07 Body Mass Index 28.46 (108.86 kg, 195.58 cm) tw2 NIH Stroke Scale Scores: 16:45 NIHSS Score: 0 cp ED Course: 16:01 Patient arrived in ED. am2 16:02 Abraham Trejo MD is Private Physician. am2 16:12 Triage completed. tw2 16:15 Caity Chapin, RN is Primary Nurse. jg9 16:15 Arm band placed on. tw2 16:23 Inserted saline lock: 20 gauge in right forearm, using aseptic technique. Blood jg9 collected. 16:23 No provider procedures requiring assistance completed. ontiveros 16:24 Alec Posada PA is PHCP. cp 16:24 Jacobo Stinson MD is Attending Physician. cp 16:28 Patient has correct armband on for positive identification. Bed in low position. ontiveros 16:45 CT Head C Spine In Process Unspecified. EDMS 16:48 Urine Microscopic Only Sent. ontiveros 16:48 Basic Metabolic Panel Sent. ontiveros 16:48 Basic Metabolic Panel Sent. ontiveros 17:04 XRAY Chest (1 view) In Process Unspecified. EDMS 19:38 Abraham Trejo MD is Hospitalizing Provider. cp 19:53 telemetry monitor on. Pulse ox on. NIBP on. Door closed. Noise minimized. Moved to tw5 private room. Warm blanket given. Verbal reassurance given. 20:49 Patient admitted, IV remains in place. as6 Administered Medications: 16:57 Drug: Meclizine 25 mg Route: PO; jg9 17:15 Follow up: Response: No adverse reaction; Marked relief of symptoms jg9 17:47 Drug: foLIC Acid 1 mg Route: IVPB; Site: right antecubital; jg9 19:55 Follow up: Response: No adverse reaction; IV Status: Completed infusion; IV Intake: [id number] 17:47 Drug: PlaVIX (clopidogrel) 75 mg Route: PO; jg9 19:54 Follow up: Response: No adverse reaction tw5 19:54 Drug: Tylenol 1000 mg Route: PO; as6 20:36 Follow up: Response: No adverse reaction as6 Intake: 19:55 IV: 50ml; Total: 50ml. tw5 Outcome: 19:30 ER care complete, transfer ordered by . cp 19:39 Decision to Hospitalize by Provider. cp 20:06 Admitted to Med/surg Report called to Attempted to call report. Was told the nurses tw5 have not been informed of their assignments. They will call back when the nurse is ready. 20:49 Condition: stable as6 20:49 Patient left the ED. as6 NIH Stroke Scale - NIH Stroke Score Date: 10/06/2021 Time: 16:45 Total Score = 0 1a. Level of Consciousness (LOC) - 0(Alert) 1b. Level of Consciousness (LOC) (Month \T\ Age) - 0(Both) 1c. LOC Commands (Open \T\ Closes Eyes/College Or University Registrar) - 0(Both) 2. Best Gaze (Lateral Gaze Paresis) - 0(Normal) 3. Visual Field Loss - 0(No visual loss) 4. Facial Palsy - 0(Normal) 5a. Left Arm: Motor (10-second hold) - 0(No drift) 5b. Right Arm: Motor (10-second hold) - 0(No drift) 6a. Left Leg: Motor (5-second hold - always test supine) - 0(No drift) 6b. Right Leg: Motor (5-second hold - always test supine) - 0(No drift) 7. Limb Ataxia (finger/nose \T\ heel/angeles - test with eyes open) - 0(Absent) 8. Sensory Loss (pinprick arms/legs/face) - 0(Normal) 9. Best Language: Aphasia (description/naming/reading) - 0(No aphasia) 10. Dysarthria (speech clarity - read or repeat words) - 0(Normal) 11. Extinction and Inattention (visual/tactile/auditory/spatial/personal) - 0(No abnormality) Initials: cp Signatures: Dispatcher [employer] EDMS Alec Posada PA PA cp Wise, Tara, RN RN tw2 Lisset Underwood am2 Brii Conroy tw5 Stephen Clifton RN RN as6 Caity Chapin RN RN jg9 Daniela-StageRenae barker RN RN ontiveros Corrections: (The following items were deleted from the chart) 16:12 16:07 Chief complaint: Patient states: 2 days ago i fell and hit my head and tw2 now i cant keep myself steady. any change in elevation i get dizzy. it is just hard to explain. i just cant stay right. Spouse and/or significant other states: he was having some dizziness before the fall but this imbalance is different for him. tw2
[2021-10-06] MEDS ORDERED: ACETAMINOPHEN 500 MG TAB ONE (19:54)
[2021-10-06 21:48] VITALS: BMI 38.0
[2021-10-06] MEDS: NA CHLORIDE 0.9% 1,000 ML IV SCH (21:57)
[2021-10-06] MEDS: INSULIN -REGULAR HUMAN 50 UNIT/0.5 ML ML SQ SCH (21:57)
[2021-10-07 05:23] LABS: Creatine Phosphokinase 30 U/L (39-308); HDL Cholesterol 36 mg/dL (40-60); LDL Cholesterol, Calculated 78 (<130)
[2021-10-07 05:26] LABS: CKMB Creatine Kinase MB < 1.0 ng/mL (1.0-3.6)
[2021-10-07] MEDS: INSULIN -REGULAR HUMAN 50 UNIT/0.5 ML ML SQ SCH ×4 (07:30→20:50)
[2021-10-07] MEDS ORDERED: TAMSULOSIN 0.4 MG SR CAP PO SCH (08:00)
[2021-10-07] MEDS ORDERED: PNEUMOCOCCAL VACCINE 0.5 ML IMVAC ONE (08:00)
[2021-10-07] MEDS ORDERED: INFLUENZA VACCINE (for 6+ mo) 0.5 ML DOSE IMVAC ONE (08:00)
[2021-10-07] MEDS ORDERED: HOME MED 1 EA UNK (Donepezil Hcl [Donepezil Hcl] 10 MG Tablet) PO SCH (08:00)
--- NOTE | 2021-10-07 08:07 | RAD REPORT ---
EXAM DESCRIPTION: USCarotid Artery Bilateral10/07/2021 1:10 am CLINICAL HISTORY: CVA COMPARISON: None FINDINGS: The velocity of the right internal carotid artery equals 55 cm/sec. The right ICA/CCA rati 0.5 o The velocity of the left internal carotid artery equals 83 cm/sec. The left ICA/CCA ratio 1.3 Mild plaque is present within the carotid arteries. The vertebral arteries demonstrate antegrade flow IMPRESSION: Mild plaque within the carotid arteries without evidence of a hemodynamically significan t stenosis NASCET criteria used. Mild 0-49% stenosis Moderate 50-69% stenosis Severe 70-99% stenosis
[2021-10-07] MEDS ORDERED: HOME MED 1 EA UNK (Metformin Hcl [Metformin Hcl] 1,000 MG Tablet) PO SCH (09:00)
[2021-10-07] MEDS: HOME MED 1 EA UNK (Empagliflozin [Jardiance] 10 MG Tablet) PO SCH (09:00)
--- NOTE | 2021-10-07 09:06 | RAD REPORT ---
EXAM DESCRIPTION: MRI - Brain W/Wo Cont - 10/07/2021 8:30 am CLINICAL HISTORY: CVA COMPARISON: head CT October 06, 2021 TECHNIQUE: Axial, sagittal, and coronal magnetic images of the brain were obtained. 20 cc MultiHance administered intravenously FINDINGS: 3 centimeter area of abnormal signal left occipital lobe. It demonstrates mild enhancement . It is consistent with a late subacute infarction. The ventricles are normal in caliber. Diffusion-weighted/ ADC mapping sequences do not demonstrate evidence of an acute infarction. An extra-axial fluid collection is not noted. Fluid within the sinuses/mastoids is not seen IMPRESSION: Late subacute infarction left occipital lobe
--- NOTE | 2021-10-07 09:16 | RAD REPORT ---
EXAM DESCRIPTION: MRI - MRA Neck W/Wo Cont - 10/07/2021 8:29 am CLINICAL HISTORY: CVA COMPARISON: None. TECHNIQUE: Magnetic resonance angiogram of the neck was performed. 20 cc MultiHance was administered intravenously. 3D MIPS reconstruction performed FINDINGS: The mid to distal vertebral arteries bilaterally are not included in the field of view and are not evaluated. Remainder of the vertebral arteries appear normal. The common carotid, internal carotid and external carotid arteries do not demonstrate a significant stenosis. An aneurysm is not seen. Mild plaque is present. IMPRESSION: Mid to distal vertebral arteries bilaterally not included in the field of view and not e valuated. Mild plaque within the carotid arteries NASCET criteria used. Mild 0-49% stenosis Moderate 50-69% stenosis Severe 70-99% stenosis
--- NOTE | 2021-10-07 09:24 | RAD REPORT ---
EXAM DESCRIPTION: MRI - MRA Head Wo Cont - 10/07/2021 8:29 am CLINICAL HISTORY: CVA COMPARISON: None. TECHNIQUE: Magnetic resonance angiogram was performed. 3D MIPS reconstruction performed FINDINGS: origin right and left posterior cerebral arteries. Poor signal within the distal left vertebral artery. The anterior cerebral, middle cerebral, posterior cerebral, distal internal carotid and basilar arter ies do not demonstrate a significant stenosis. An aneurysm is not displayed. IMPRESSION: Poor signal within the distal left vertebral artery. This could indicate a a dissection acute versus chronic or be secondary to the artery being hypoplastic
[2021-10-07] MEDS: ENOXAPARIN 40 MG/0.4 ML SQ SCH (09:26)
[2021-10-07] MEDS: CLOPIDOGREL 75 MG TABLET PO SCH (09:27)
[2021-10-07] MEDS: METFORMIN HCL 500 MG TAB PO SCH ×2 (09:27→17:43)
[2021-10-07] MEDS: PARoxetine HCL 10 MG TAB PO SCH (09:27)
[2021-10-07] MEDS: TAMSULOSIN 0.4 MG SR CAP PO SCH (09:27)
[2021-10-07] MEDS: NA CHLORIDE 0.9% 1,000 ML IV SCH ×2 (09:32→22:32)
[2021-10-07] MEDS: BUSPIRONE HCL 5 MG TABLET PO SCH ×2 (11:43→20:53)
[2021-10-07] MEDS: FOLIC ACID 1 MG TABLET PO SCH (14:35)
[2021-10-07] MEDS: ASPIRIN EC 81 MG TAB PO SCH (14:35)
[2021-10-07 17:57] LABS: Magnesium 1.9 mg/dL (1.8-2.4)
--- NOTE | 2021-10-07 19:23 | CON ---
Reason For Consultation: Consultation called because of stroke. History Of Present Illness: Mr. Mccall is a 71-year-old right-handed patient with poorly c ontrolled diabetes mellitus and history of meningitis, liver disease, who comes to [facility] with stroke-like symptoms. The patient's is at bedside. On Sunday, today is Sunday, the pat harpreet's said he was getting out of the shower in the mid morning and the patient himself also alden d when he tried to attempt to get out, he suddenly lost vision and things went black and his legs and arms stopped moving, he fell backwards and hit the back of his head. He did not lose consciousness. His and son were able to help him up. At that point, he was dizzy and he was tending to fall to the right when trying to ambulate. He did not seek medical attention at that time. Symptoms fluc tuated and the following day on the he came to [facility] around arrival time 1601. At that point, he was well out of any window for tPA, as the patient is more than a day after symptom onset. His head CT scan part of trauma series given the patient's fall showed an age-indeter minate left occipital lobe cortical infarct. In addition, there was central spinal stenosis present at C6-C7 level to a mild degree. Also, there was neural foraminal narrowing moderate to severe at C4 -5. MRI was recommended to better assess both the brain and spine findings. His subsequent treatmen t included taking aspirin 81 mg daily, Plavix 75 mg daily, folate 1 mg daily, DVT prophylaxis with Lo venox 40 mg subcutaneously daily, and continue his metformin. The magnetic resonance angiogram of hi s head identified poor signal in the distal left vertebral artery, which could indicate a possible ac marlene dissection or artery being hypoplastic. However, the patient's stroke is in the distribution of that vessel and likely not to be hypoplastic, more likely seems to be either dissection or acute find ing. Carotid artery ultrasound showed no evidence of hemodynamically significant stenosis and his ne ck magnetic resonance angiogram showed no significant blockage in the proximal vertebral arteries or in the carotid arteries. His laboratory studies showed essentially normal complete blood count with differential, normal coagulation panel. Chemistries showed creatinine 1.33, glucose range from 174-2 50. Liver function studies are normal. Triglycerides 180, total cholesterol 150, LDL cholesterol 78 , HDL cholesterol 36, cholesterol HDL ratio 4.17. His COVID-19 test was negative. Urinalysis unrema rkable. Past Medical History: As noted above, in addition to the patient said meningitis while he was in [place], he saw a neurologist and following meningitis, he has had some cognitive deficits, which were remedios ated and are treated currently with donepezil 10 mg daily. He tried memantine but had vivid nightmar e like dreams. Past Surgical History: Appendectomy, bilateral knee replacement and bilateral shoulder replacement s urgery. Allergies: DILAUDID, IBUPROFEN, IODINE, LEVAQUIN, MORPHINE. Social History: No alcohol, tobacco, or IV drug use. Family History: Noncontributory. Review of Systems: As per the patient and his , he has had, actually prior to the fall, episodes of intermittent diz ziness. No vertigo, vomiting. Also stocking-glove loss to light touch, temperature. Otherwise depr ession for which he is on antidepressants. Otherwise, negative on a 10 point systems review. Physical Examination: Vital Signs: Blood pressure 160/72, pulse 64, respiratory rate 17, temperature 97.8, oxygen saturati on 97% room air, respiratory rate 16 to 19, weight 237 pounds, height 5 feet 9 inches, BMI 38. General: Mr. Mccall is lying in bed. His is at bedside. HEENT: He is normocephalic, atraumatic. His sclerae are anicteric. Oropharynx is pink and moist. Neck: Supple. Chest: Clear. Heart: Regular. Extremities: No edema, cyanosis, or clubbing. Neurologic: He is alert and oriented to situation, place, time. He follows commands appropriately, although he is slightly slow in following commands, especially complex commands. Cranial nerves did not show deficits despite his finding. He did have full chapman to confrontation. His pupils are equ ally round and reactive to light and accommodation. His extraocular movements are intact. Facial se nsation intact, V1, V2, V3. Tongue and palate are midline. Motor examination, he has no weakness in the upper or lower extremities, 5/5 proximally and distally. Sensory exam, stocking-glove loss of l ight touch and temperature. Reflexes are depressed in upper and lower extremities. Coordination int act in upper and lower extremities. He was not ambulated due to the possibility of a dissection and trying to be transferred out for higher level of care. Assessment: Mr. 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 The a ppearance is perhaps subacute as clinical symptoms appear to be subacute. Today is Sunday and onset of symptoms on Sunday. He is on aspirin, Plavix, folic acid, statin, DVT prophylaxis along with met formin for his blood sugar management. Plan: 1.The patient will if possible be transferred for higher level of care potentially for angioplasty p rocedure in the vertebral distribution to address his dissection or thrombolytics as needed. 2.Continue aspirin, Plavix, folic acid, statin. 3.Will maintain permissive hypertension during this time to reduce the risk of worsening the patient 's stroke. 4.This was discussed with the patient, his , and Dr. Trejo primary care physician and they agree that the course of treatment is best for the patient that is transfer along with antiplatelet medica tion. The possibility of anticoagulation was discussed but this appears to be equally effective in r educing the risk of long-term disability compared to anticoagulation. Therefore, he is on antiplatel ets. 5.Continue with Aricept. 6.The patient is fully worked up at [facility] and as intervention performed and discharged he should follow up in Dr. Thomas's office for a formal dementia workup. KADE/CATALINA Voice ID: [id number] Report ID: [id number]
[2021-10-07] MEDS: ATORVASTATIN 40 MG TAB PO SCH ×2 (20:53→20:56)
[2021-10-07] MEDS ORDERED: ATORVASTATIN 20 MG TAB PO SCH (21:00)
[2021-10-07] MEDS ORDERED: DONEPEZIL HCL 5 MG TAB PO SCH (21:00)
--- NOTE | 2021-10-08 02:32 | HP ---
Date of Admission: 10/06/2021 Reason For Admission: Dizziness and unsteadiness. History Of Present Illness: The patient is a 71-year-old gentleman with dementia, diabetes mellitus, and hypertension, who has been unsteady for couple days. According to , he was on statin before , but he quit somehow in the past. On CAT scan, there is a questionable occipital stroke, which was confirmed on MRI in the right occipital area of the brain. He is clinically stable. He is not havin g any double vision, blurred vision. He is still unsteady on gait and he has no other complaints at this point. Past Medical History: Diabetes, hypertension, and dementia. Medications: At home, he is on BuSpar, Paxil, Jardiance, metformin and Lipitor, he was supposed to b e on, but he had quit somehow. Social History: Nonsmoker. Family support is great. Past Surgical History: As listed. Physical Examination: Vital Signs: His blood pressure is stable. His pulse is about 80 per minute. He had an episode of tachycardia for a short duration and he is back at sinus bradycardia at 56. HEENT: No JVD. No carotid bruits. Lungs: No murmur, rub, or gallop. Heart: Lungs are clear. No rales, no wheezing. Abdomen: No guarding, no rebound, no rigidity. Neurologic: I did not see any cerebellar signs of stroke. We did not find any kind of visual field abnormalities also. Physically, he is able to move all 4 limbs equally, but on gait examination, he is slightly unsteady and need support. Investigations: CAT scan and MRI as above. On MR angiogram, there is a questionable vertebral arter y dissection versus a plaque versus an aplastic vertebral artery. Dr. Thomas suspected there might be a dissection here, which is why they are recommending transfer to a neurosurgical center in [facility] on. Assessment And Plan: 1.Cerebral stroke, right occipital region, possible dissection. The patient will be transferred to [facility] in [place]. If not possible, I will try [facility], [place]. Continue aspirin, Plavix, add L ipitor 40 mg once a day. 2.Diabetes mellitus. He just had a blood work at the office. His LDL was about 108. His A1c is 7, is clinically stable. 3.Dementia, unchanged, about the same. Continue current medications. His prognosis is guarded. RVD/MODL Voice ID: [id number]
[2021-10-08 05:58] VITALS: TEMP 97.9
[2021-10-08 07:29] VITALS: BP 140/72
[2021-10-08] MEDS: INSULIN -REGULAR HUMAN 50 UNIT/0.5 ML ML SQ SCH ×2 (07:30→11:30)
[2021-10-08] MEDS: FOLIC ACID 1 MG TABLET PO SCH (08:22)
[2021-10-08] MEDS: ASPIRIN EC 81 MG TAB PO SCH (08:22)
[2021-10-08] MEDS: METFORMIN HCL 500 MG TAB PO SCH (08:22)
[2021-10-08] MEDS: BUSPIRONE HCL 5 MG TABLET PO SCH (08:23)
[2021-10-08] MEDS: CLOPIDOGREL 75 MG TABLET PO SCH (08:24)
[2021-10-08] MEDS: ENOXAPARIN 40 MG/0.4 ML SQ SCH (08:24)
[2021-10-08] MEDS: TAMSULOSIN 0.4 MG SR CAP PO SCH (08:25)
[2021-10-08] MEDS: HOME MED 1 EA UNK (Empagliflozin [Jardiance] 10 MG Tablet) PO SCH (08:25)
[2021-10-08 08:45] VITALS: O2SAT 95
[2021-10-08] MEDS: PARoxetine HCL 10 MG TAB PO SCH (10:00)
--- NOTE | 2021-10-08 10:06 | P.DS ---
Admission Date: 10/06/21 Discharge Date: 10/08/21 Disposition: DC HOME/HOME HEALTH CARE Discharge Condition: [facility] Hospital Course: MR. PERAZA HAD MILD UNSTEADY GAIT AND WAS BROUGHT TO ER. ER DOCTOR ORDERED MULTIPLE TESTS, CT, MRI, MRA ETC. THEY OLD ME THAT HE HAS OCCIPITAL STROKE AND ADMITTED HIM. THIS IS ACTUALLY OLD STROKE HE ALREADY HAD AT VISIT IN AUGUST FOR COVID. THERE IS NOTHING NEW. DR. FALL WANTED TO TRANSFER HIM TO [facility] FOR POSSIBLE VERTEBRAL DISSECTION BUT I WAS NOT SURE HE IS VERY STABLE. I SHOWED MRA PICTURES TO DR. SERGIO RODRIGUEZ WHO IS HEAD OF [facility] NEUROSURGERY DEPARTMENT AND HE IS IN AGREEMENT WITH ME . HE SAYS THERE IS A VERY MINOR PROBLEM IF ANY AND HE DOES NOT NEED INTERVENTION. HE THINKS TRANSFER IS NOT NEEDED. HE WILL SEE HIM ON OUTPATIENT BASIS. I TALKED TO AND SHE WAS HAPPY TO HEAR THAT. HE WILL GO HOME WITH HOME HEALTH. START ASPIRIN, PLAVIX AND LIPITOR. DR. RODRIGUEZ WILL STOP PLAVIX MOST LIKELY Vital Signs/Physical Exam: Temp Pulse Resp BP Pulse Ox 97.9 F 63 18 140/72 99 10/08/21 07:28 10/08/21 07:28 10/08/21 07:28 10/08/21 07:28 10/08/21 07:28 Laboratory Data at Discharge: WBC 6.80 K/uL (4.3-10.9) 10/06/21 16:32 Hgb 14.2 g/dL (13.6-17.9) 10/06/21 16:32 Hct 41.8 % (39.6-49.0) 10/06/21 16:32 Plt Count 146 K/uL (152-406) L 10/06/21 16:32 PT 13.7 SECONDS (9.5-12.5) H 10/06/21 16:32 INR 1.19 10/06/21 16:32 Sodium 137 mmol/L (136-145) 10/07/21 17:27 Potassium 4.0 mmol/L (3.5-5.1) 10/07/21 17:27 BUN 16 mg/dL (7-18) 10/07/21 17:27 Creatinine 1.03 mg/dL (0.55-1.3) 10/07/21 17:27 Glucose 155 mg/dL (74-106) H 10/07/21 17:27 Magnesium 1.9 mg/dL (1.8-2.4) 10/07/21 17:27 Total Bilirubin 0.6 mg/dL (0.2-1.0) 10/06/21 16:32 AST 15 U/L (15-37) 10/06/21 16:32 ALT 23 U/L (12-78) 10/06/21 16:32 Alkaline Phosphatase 87 U/L (45-117) 10/06/21 16:32 Triglycerides 180 mg/dL (<150) H 10/07/21 04:49 Cholesterol 150 mg/dL (<200) 10/07/21 04:49 HDL Cholesterol 36 mg/dL (40-60) L 10/07/21 04:49 Cholesterol/HDL Ratio 4.17 10/07/21 04:49 Home Medications: Buspirone HCl 7.5 mg PO BID 10/06/21 Donepezil HCl 10 mg PO ONCE 10/06/21 Empagliflozin [Jardiance] 10 mg PO ONCE 10/06/21 Metformin HCl 1,000 mg PO BID 10/06/21 Paroxetine HCl [Paxil] 40 mg PO ONCE 10/06/21 Tamsulosin [Flomax*] 0.4 mg PO ONCE 10/06/21 Atorvastatin Calcium [Lipitor] 40 mg PO BEDTIME #90 tab 10/08/21 Clopidogrel Bisulfate [Plavix*] 75 mg PO DAILY #90 tablet 10/08/21 Donepezil [Aricept*] 10 mg PO BEDTIME tab 10/08/21 New Medications: Atorvastatin Calcium [Lipitor] 40 mg PO BEDTIME #90 tab Clopidogrel Bisulfate [Plavix*] 75 mg PO DAILY #90 tablet Followup: Abraham Trejo MD [Primary Care Provider] -
[2021-10-08] MEDS: NA CHLORIDE 0.9% 1,000 ML IV SCH (12:15)
--- NOTE | 2021-10-10 06:58 | ECHO ---
HEIGHT: 5 ft 9 in WEIGHT: 257 lb 3.2 oz DATE OF STUDY: 10/07/[address]: Alec Posada PAC 2-DIMENSIONAL: YES M.MODE: YES DOPPLER: YES COLOR FLOW: YES TDS: NO PORTABLE: NO DEFINITY: NO BUBBLE STUDY: NO DIAGNOSIS: CEREBRAL VASCULAR ACCIDENT CARDIAC HISTORY: CATHERIZATION: NO SURGERY: NO PROSTHETIC VALVE: NO PACEMAKER: NO MEASUREMENTS (cm) DIASTOLIC (NORMALS) SYSTOLIC (NORMALS) IVSd 1.4 (0.6-1.2) LA Diam 3.6 (1.9-4.0) LVEF 55-60% LVIDd 4.4 (3.5-5.7) LVIDs 3.3 (2.0-3.5) %FS 25% LVPWd 1.4 (0.6-1.2) Ao Diam 3.3 (2.0-3.7) 2 DIMENSIONAL ASSESSMENT: RIGHT ATRIUM: NORMAL LEFT ATRIUM: NORMAL RIGHT VENTRICLE: NORMAL LEFT VENTRICLE: NORMAL TRICUSPID VALVE: MITRAL VALVE: NORMAL PULMONIC VALVE: NORMAL AORTIC VALVE: NORMAL PERICARDIAL EFFUSION: NONE AORTIC ROOT: NORMAL LEFT VENTRICULAR WALL MOTION: NORMAL DOPPLER/COLOR FLOW: MILD TRICUSPID REGURGITATION. COMMENTS: NORMAL LEFT VENTRICULAR EJECTION FRACTION 55-60%. NORMAL WALL MOTION. MILD TRICUSPID REGURGITATION. TECHNOLOGIST: Polo LATIF
== END 2021-10-08 14:50 | disposition home or self-care (01) | DRG 64 ==
LOC: ER 16:00 → 2ND 20:41
PROVIDERS: ADMIT Internal Medicine; ATTEND Internal Medicine
DX: I63.9 Cerebral infarction, unspecified (principal); I77.74 Dissection of vertebral artery; I10 Essential (primary) hypertension; F03.90 Unspecified dementia, unspecified severity, without behavioral disturbance, psychotic disturbance, mood disturbance, and anxiety; E11.9 Type 2 diabetes mellitus without complications; R29.700 NIHSS score 0; Z88.1 Allergy status to other antibiotic agents; Z88.8 Allergy status to other drugs, medicaments and biological substances; Z91.048 Other nonmedicinal substance allergy status; Z79.4 Long term (current) use of insulin; Z79.84 Long term (current) use of oral hypoglycemic drugs; Z79.899 Other long term (current) drug therapy; Z96.653 Presence of artificial knee joint, bilateral; Z96.612 Presence of left artificial shoulder joint; Z96.611 Presence of right artificial shoulder joint; Z96.649 Presence of unspecified artificial hip joint; Z79.82 Long term (current) use of aspirin; Z79.02 Long term (current) use of antithrombotics/antiplatelets; Z20.822 Contact with and (suspected) exposure to COVID-19; Z88.5 Allergy status to narcotic agent
CPT/HCPCS: 36415; 70450; 70544; 70549; 70553; 71045; 72125; 80048; 80061; 80076; 81003; 81015; 82550; 82553; 82947; 83735; 83880; 84484; 85025; 85610; 90471; 93306; 93880; 94760; 96365; 96366; 97161; 99285; A9577; J1650; J7030; J8597; Q2035; U0003

== ENCOUNTER 2021-10-27 23:43 | Emergency (ER) | payer OTHER ==
--- OUTSIDE RECORDS SUMMARY | 2021-10-27 23:46 | XMS REPORT | Continuity of Care Document ---
:1950 Author Organization [facility] t Address [address] [place] [address] Care Team Providers Name Role Phone URSZULA CROWDER Primary Care Physician Unavailable ORQUIDEA DENISE Attending Clinician Unavailable Carl HAWKINS Attending Clinician Unavailable Renzo Caballero MD Attending Clinician ORQUIDEA DENISE Admitting Clinician Unavailable Payers Payer Name Policy Type Policy Number Effective Date Expiration Date S ource [employer] MEDICARE [id number] 2021 ADV 00:00:00 [employer] CHOICE [id number] 2021 00:00:00 Problems Condition Condition Condition Status Onset Resolution Last Treating Co mments Source Name Details Category Date Date Treatment Clinician Date No known No known Disease Unive rs active active ity of problems problems [facility] Allergies, Adverse Reactions, Alerts Allergy Allergy Status Severity Reaction(s) Onset Inactive Treating Comm ents Source Name Type Date Date Clinician IODINE Drug Active Anaphylaxis Unive rs AND Class 3-07 ity of IODIDE 00:00: [place] CONTAINI 00 Medical NG Branch PRODUCTS Iodine Propensi Active Anaphylaxis Uni vers And ty to 3-07 ity of Iodide adverse 00:00: [place] Containi reaction 00 Medica l ng s Branch Products LEVOFLOX Allergy Active High Hives [address] [facility] MORPHINE Allergy Active High Hives [address] [facility] HYDROMOR Allergy Active High Hives [facility] PH[facility] IBUPROFE Allergy Active High Hives 2022-[address] [facility] N 2[facility] IODINE Allergy Active High Hives 2021-[address] [facility] Hydromor Propensi Active Unknown - 2021-0 Uni vers phone ty to See comments 1-14 ity of adverse 00:00: [place] reaction 00 Medical s Branch HYDROMOR DRUG Active Unknown-Cmnt 2021-0 Un anil PHONE INGREDI 1-14 ity of 00:00: [place] 00 Medical Branch IBUPROFE DRUG Active Anaphylaxis 2021-0 Uni vers N INGREDI 1-14 ity of 00:00: [place] 00 Medical Branch LEVOFLOX DRUG Active Other-Cmnt 0 Univ ers ACIN INGREDI -14 ity of 00:00: [place] 00 Medical Branch MORPHINE DRUG Active Anaphylaxis Uni vers INGREDI 1-14 ity of 00:00: [place] 00 Medical Branch SHELLFIS DRUG Active Unknown-Cmnt 0 Un anil H INGREDI 1-14 ity of DERIVED 00:00: [place] 00 Medical Branch Ibuprofe Propensi Active Anaphylaxis 2021-0 U nivers n ty to 1-14 ity of adverse 00:00: [place] reaction 00 Medical s Branch Levoflox Propensi Active Other - See 2021-0 aggitate d Univers acin ty to comments 1-14 ity of adverse 00:00: [place] reaction 00 Medical s Branch Morphine Propensi Active Anaphylaxis 2021-0 U nivers ty to 1-14 ity of adverse 00:00: [place] reaction 00 Medical s Branch Shellfis Propensi Active Unknown - 2021-0 Uni vers h ty to See comments 1-14 ity of Derived adverse 00:00: [place] reaction 00 [facility] Social History Social Habit Start Date Stop Date Quantity Comments Source Exposure to Not sure [facility] SARS-CoV-2 (event) Medica l Branch Tobacco use and 2021-08-26 2021-08-26 Never used [facility] exposure 00:00:00 00:00:00 Medical Branch Sex [birth year] [facility] 00:00:00 00:00:00 Medical Branch Smoking Status Start Date Stop Date Source Never smoker [facility] Medications Ordered Filled Start Stop Current Ordering Indication Dosage Frequency Signature Comments Components Source Medication Medication Date Date Medication? Clinician (SIG) Name Name predniSONE Yes [id number] 20mg Take 1 Univers 20 mg 3-07 tablet by ity of tablet 00:00: mouth [place] 00 daily. Medical Branch diphenhydrA Yes [id number] 25mg Take 1 Univers MINE 3-07 capsule by ity of (BENADRYL) 00:00: mouth [place] 25 mg 00 every 6 Medical capsule (six) Branch hours as needed for Allergies. LANTUS Yes Univers SOLOSTAR 1-08 ity of U-100 00:00: [place] INSULIN 100 00 Medical unit/mL (3 Branch mL) injection JARDIANCE 2020-08 Yes Univers 10 mg 2-21 ity of 00:00: [place] 00 [facility] metFORMIN 2020-08 Yes Univers 1,000 mg 2-21 ity of tablet 00:00: [place] 00 [facility] busPIRone 2020-08 Yes Univers 7.5 mg 2-21 ity of tablet 00:00: [place] 00 [facility] PARoxetine 2020-08 Yes Univers 40 mg 2-21 ity of tablet 00:00: [place] 00 [facility] donepeziL 2020-08 Yes Univers 10 mg 2-17 ity of tablet 00:00: [place] 00 [facility] HUMALOG 2020-08 Yes Univers KWIKPEN 1-27 ity of INSULIN 100 00:00: [place] unit/mL 00 Medical injection Branch tamsulosin 2020-08 Yes Univers 0.4 mg 24 1-27 ity of hr capsule 00:00: [address] Vital Signs Vital Name Observation Time Observation Value Comments Source Systolic blood 2021-10-17 14:54:00 143 mm[Hg] Univer sity of [facility] Diastolic blood 2021-10-17 14:54:00 85 mm[Hg] Unive rsity [facility] Heart rate 2021-10-17 14:54:00 86 /min [facility] Body height 2021-10-17 14:54:00 175.3 cm [facility] Body weight 2021-10-17 14:54:00 117.799 kg [facility] BMI 2021-10-17 14:54:00 38.35 kg/m2 [facility] Procedures This patient has no known procedures. Encounters Start End Encounter Admission Attending Care Care Encounter Source Date/Time Date/Time Type Type Clinicians Facility Department ID 2021-10-07 Inpatient ALTON EUBANKS [facility] Neurology [id number] 14:48:54 [facility] 2021-11-22 2021-11-22 Outpatient Cedrick HAWKINSTHE [facility] [id number] Univers 08:00:00 08:00:00 ROSE [id number] [facility] 2021-11-22 2021-11-22 Outpatient Cedrick HAWKINSTHE [facility] [id number] Univers 08:00:00 08:00:00 [facility] 2021-11-21 2021-11-21 Outpatient R [facility] [id number] Univers 09:00:00 09:00:00 [id number] [facility] 2021-10-17 2021-10-17 Office Jerome Caballero [facility] [id number] Univers 09:00:00 09:30:00 Visit [facility] [id number] it y of CLEAR [id number] [facility] julianne ZORTMAN [phone] [address] OFFICE BUILDING Results This patient has no known results.
[2021-10-28] MEDS ORDERED: ONDANSETRON 4 MG/2 ML VIAL ONE (00:16)
[2021-10-28] MEDS ORDERED: FENTANYL CITR 100 MCG/2 ML ONE (00:16)
[2021-10-28 00:40] LABS: Absolute Lymphocytes (CBC) 1.1 K/uL (0.7-4.9); Hematocrit 37.9 % (39.6-49.0); Lymphocytes % 16.6 % (15.3-44.8); MPV 8.4 fL (7.6-11.3); RBC Red Blood Cell Count 4.41 M/uL (4.33-5.43)
[2021-10-28 00:56] LABS: Potassium 3.9 mmol/L (3.5-5.1)
--- NOTE | 2021-10-28 02:58 | ER ---
Nurse's Notes [facility] Name: Marcelino Mccall Age: 71 yrs Sex: Male : 1950 Arrival Date: 10/27/2021 Time: 23:47 Bed 17 Private MD: Diagnosis: Unspecified injury of head, initial encounter;Contusion of other part of head;Abrasion of left elbow Presentation: 10/27 23:52 Chief complaint: Patient states: EMS states, patient tripped on computer wires, impact tk1 to back of head. Laceration to back of head. Bleeding controlled. Patient on Plavix. Care prior to arrival: Medication(s) given: zofran 4 mg. Mechanism of Injury: Fall from standing position. 23:52 Acuity: SUZI 2 tk1 23:52 Method Of Arrival: EMS tk1 10/28 03:05 Coronavirus screen: Vaccine status: Patient reports receiving the 2nd dose of the covid ll3 vaccine. Ebola Screen: No symptoms or risks identified at this time. Initial Sepsis Screen: Does the patient meet any 2 criteria? No. Patient's initial sepsis screen is negative. Does the patient have a suspected source of infection? No. Patient's initial sepsis screen is negative. Risk Assessment: Do you want to hurt yourself or someone else? Patient reports no desire to harm self or others. Onset of symptoms was October 27, 2021. 03:07 Trauma event details: Injury occurred in the [facility], Injury occurred: at [facility] home. Injury occurred: October 27, 2021 Injury occurred at: 23:00. Trauma Activation: Physician: ED Physician; Name: Milad; Notified At: ; Arrived At: Physician: General Surgeon; Name: ; Notified At: ; Arrived At: Physician: Radiology; Name: ; Notified At: ; Arrived At: Physician: Respiratory; Name: ; Notified At: ; Arrived At: Physician: Lab; Name: ; Notified At: ; Arrived At: Historical: - Allergies: 00:51 Dilaudid; ll3 00:51 Ibuprofen; ll3 00:51 Iodine; ll3 00:51 Levaquin; ll3 00:51 Morphine; ll3 - PMHx: 00:51 diabetes mellitus; Liver disease; ll3 - PSHx: 00:51 Appendectomy; b/l knee replacement; b/l shoulder replacement; hip replacement; ll3 - Immunization history: Last tetanus immunization: unknown. - Social history:: Smoking status: Patient denies any tobacco usage or history of. Screenin/17 23:52 Abuse screen: Denies threats or abuse. Denies injuries from another. Tuberculosis tk1 screening: No symptoms or risk factors identified. 10/28 03:06 Nutritional screening: No deficits noted. Fall Risk Fall in past 12 months (25 points). ll3 Secondary diagnosis (15 points) CVA, IV access (20 points). Mental Status- Oriented to own ability (0 pts). Total Scott Fall Scale indicates High Risk Score (45 or more points). Fall prevention measures have been instituted. Side Rails Up X 2 Placed Close to Nursing Station Frequent Obs/Assessments Occuring Family Present and informed to notify staff if the need to leave the bedside. Primary Survey: 10/27 23:52 NO uncontrolled hemorrhage observed. Breathing/Chest: Respiratory pattern: regular, tk1 Respiratory effort: spontaneous, unlabored, Breath sounds: clear, bilaterally. Chest inspection: symmetrical rise and fall of the chest. Circulation: Cardiac rhythm: sinus rhythm Heart tones present. Pulses: palpable . Skin color: pink, Skin temperature: warm, dry. Disability Alert. Exposure/Environment: Obvious injury(ies) are noted at this time: Laceration to back of head. Bleeding controlled. 10/28 03:05 Reassessment Breathing/Chest Respiratory pattern Regular Respiratory effort Unlabored. ll3 Assessment: 10/27 23:52 General: Appears uncomfortable, obese, well groomed, well developed, well nourished, tk1 Behavior is cooperative, crying. Pain: Complains of pain in scalp Pain radiates to forehead Pain currently is 10 out of 10 on a pain scale. Quality of pain is described as aching, radiating, Pain began suddenly, 1 hour ago. Is continuous. Neuro: Level of Consciousness is awake, alert, obeys commands, Oriented to person, place, time, situation, Appropriate for age Proc Tech are equal bilaterally Moves all extremities. Speech is normal, Facial symmetry appears normal. EENT: No deficits noted. No signs and/or symptoms were reported regarding the EENT system. Cardiovascular: Capillary refill < 3 seconds is brisk in bilateral fingers Clubbing of nail beds is absent Rhythm is sinus rhythm. Respiratory: Airway is patent Respiratory effort is even, unlabored, Respiratory pattern is regular, symmetrical. GI: No deficits noted. No signs and/or symptoms were reported involving the gastrointestinal system. : No deficits noted. No signs and/or symptoms were reported regarding the genitourinary system. Derm: No deficits noted. No signs and/or symptoms reported regarding the dermatologic system. Musculoskeletal: No deficits noted. No signs and/or symptoms reported regarding the musculoskeletal system. Injury Description: Laceration sustained to scalp is 0.5 to 2.5 cm long, a small amount of bleeding noted at this time. Nursing diagnosis: Alteration in comfort: actual. 10/28 00:51 Reassessment: Patient and/or family updated on plan of care and expected duration. Pain ll3 level reassessed. Patient is alert, oriented x 3, equal unlabored respirations, skin warm/dry/pink. States pain is 3/10 Patient states symptoms have improved. 01:55 Reassessment: No changes from previously documented assessment. Patient and/or family ll3 updated on plan of care and expected duration. Pain level reassessed. Patient is alert, oriented x 3, equal unlabored respirations, skin warm/dry/pink. States pain is a dull throbbing 3/10. Vital Signs: 00:51 BP 133 / 79; Pulse 78; Resp 11; Pulse Ox 96% on R/A; ll3 01:45 BP 135 / 75; Pulse 76; Resp 10; Pulse Ox 98% on R/A; ll3 03:15 BP 136 / 75; Pulse 66; Resp 10; Pulse Ox 98% on R/A; ll3 Harviell Coma Score: 10/27 23:52 Eye Response: spontaneous(4). Verbal Response: oriented(5). Motor Response: obeys tk1 commands(6). Total: 15. 10/28 00:51 Eye Response: spontaneous(4). Verbal Response: oriented(5). Motor Response: obeys ll3 commands(6). Total: 15. 01:45 Eye Response: spontaneous(4). Verbal Response: oriented(5). Motor Response: obeys ll3 commands(6). Total: 15. 03:15 Eye Response: spontaneous(4). Verbal Response: oriented(5). Motor Response: obeys ll3 commands(6). Total: 15. Trauma Score (Adult): 10/27 23:52 Eye Response: spontaneous(1); Verbal Response: oriented(1); Motor Response: obeys tk1 commands(2); Systolic BP: > 89 mm Hg(4); Respiratory Rate: 10 to 29 per min(4); Yohan Score: 15; Trauma Score: 12 ED Course: 23:47 Patient arrived in ED. wm 23:52 Patient has correct armband on for positive identification. Bed in low position. Call tk1 light in reach. Side rails up X2. 23:52 Patient maintains SpO2 saturation greater than 95% on room air. tk1 23:55 Triage completed. tk1 23:59 Jacobo Stinson MD is Attending Physician. kdr 10/28 00:33 Jackie Delgado RN is Primary Nurse. ll3 01:02 Head C Spine Cap Wo Con In Process Unspecified. EDMS 03:03 Dressings: Kerlix X 1; palmar aspect of left forearm non-adherent dressing. Irrigation ll3 on palmar aspect of left forearm. 03:05 Arm band placed on Patient placed in an exam room, on a stretcher. ll3 03:05 No provider procedures requiring assistance completed. ll3 03:07 Thermoregulation: warm blanket given to patient. ll3 03:34 IV discontinued, intact, bleeding controlled, No redness/swelling at site. Pressure ll3 dressing applied. Administered Medications: 00:25 Drug: fentaNYL (PF) 25 mcg Route: IVP; Site: left forearm; ll3 03:32 Follow up: Response: No adverse reaction; Marked relief of symptoms ll3 00:27 Drug: Zofran (Ondansetron) 4 mg Route: IVP; Site: left forearm; ll3 03:31 Follow up: Response: No adverse reaction ll3 03:29 Drug: Tetanus-Diphtheria Toxoid Adult 0.5 ml {Compounding Pharmacy Technician: [employer]. Exp: ll3 12/31/2022. Lot #: [id number]. } Route: IM; Site: right deltoid; 03:31 Follow up: Response: No adverse reaction ll3 Intake: 03:07 IV: 3ml; Total: 3ml. ll3 Output: 03:07 Urine: 300ml; Total: 300ml. ll3 Outcome: 02:57 Discharge ordered by . kdr 03:34 Patient's length of stay was not longer than 2 hours. ll3 03:34 Discharged to home ambulatory, with significant other. ll3 03:34 Condition: stable 03:34 Discharge instructions given to patient, family, Instructed on discharge instructions, follow up and referral plans. medication usage, Demonstrated understanding of instructions, follow-up care, medications, Prescriptions given X 2. 03:35 Patient left the ED. ll3 Signatures: Dispatcher [employer] EDMS Jacobo Stinson MD MD [facility] Rona Plunkett Lynsea, RN RN ll3 Ai Dick1
--- NOTE | 2021-10-28 02:58 | EDPHYS ---
Physician Documentation [facility] Name: Marcelino Mccall Age: 71 yrs Sex: Male : 1950 Arrival Date: 10/27/2021 Time: 23:47 Bed 17 Private MD: ED Physician Jacobo Stinson HPI: 10/28 07:31 This 71 yrs old Male presents to ER via EMS with complaints of Fall and head injury. kdr 07:31 Details of fall: The patient fell from an upright position, while walking. Onset: The kdr symptoms/episode began/occurred suddenly, just prior to arrival. Associated injuries: The patient sustained injury to the head, abrasion, contusion, hematoma, pain, swelling, tenderness. Severity of symptoms: At their worst the symptoms were very mild, in the emergency department the symptoms are unchanged. The patient has not experienced similar symptoms in the past. The patient has been recently seen by a physician:. Historical: - Allergies: 00:51 Dilaudid; ll3 00:51 Ibuprofen; ll3 00:51 Iodine; ll3 00:51 Levaquin; ll3 00:51 Morphine; ll3 - PMHx: 00:51 diabetes mellitus; Liver disease; ll3 - PSHx: 00:51 Appendectomy; b/l knee replacement; b/l shoulder replacement; hip replacement; ll3 - Immunization history: Last tetanus immunization: unknown. - Social history:: Smoking status: Patient denies any tobacco usage or history of. ROS: 07:31 Constitutional: Negative for fever, chills, and weight loss, Eyes: Negative for injury, kdr pain, redness, and discharge, Neck: Negative for injury, pain, and swelling, Cardiovascular: Negative for chest pain, palpitations, and edema, Respiratory: Negative for shortness of breath, cough, wheezing, and pleuritic chest pain, Abdomen/GI: Negative for abdominal pain, nausea, vomiting, diarrhea, and constipation, Back: Negative for injury and pain, : Negative for injury, bleeding, discharge, and swelling, MS/Extremity: Negative for injury and deformity, Skin: Negative for injury, rash, and discoloration, Neuro: Negative for headache, weakness, numbness, tingling, and seizure activity. Psych: Negative for depression, anxiety, suicide ideation, homicidal ideation, and hallucinations, Allergy/Immunology: Negative for hives, rash, and allergies, Endocrine: Negative for neck swelling, polydipsia, polyuria, polyphagia, and marked weight changes, Hematologic/Lymphatic: Negative for swollen nodes, abnormal bleeding, and unusual bruising. Exam: 07:31 Constitutional: This is a well developed, well nourished patient who is awake, alert, kdr and in no acute distress. Head/Face: Normocephalic, atraumatic. Eyes: Pupils equal round and reactive to light, extra-ocular motions intact. Lids and lashes normal. Conjunctiva and sclera are non-icteric and not injected. Cornea within normal limits. Periorbital areas with no swelling, redness, or edema. ENT: Nares patent. No nasal discharge, no septal abnormalities noted. Tympanic membranes are normal and external auditory canals are clear. Oropharynx with no redness, swelling, or masses, exudates, or evidence of obstruction, uvula midline. Mucous membranes moist. Neck: Trachea midline, no thyromegaly or masses palpated, and no cervical lymphadenopathy. Supple, full range of motion without nuchal rigidity, or vertebral point tenderness. No Meningismus. Chest/axilla: Normal chest wall appearance and motion. Nontender with no deformity. No lesions are appreciated. Cardiovascular: Regular rate and rhythm with a normal S1 and S2. No gallops, murmurs, or rubs. Normal PMI, no JVD. No pulse deficits. Respiratory: Lungs have equal breath sounds bilaterally, clear to auscultation and percussion. No rales, rhonchi or wheezes noted. No increased work of breathing, no retractions or nasal flaring. Abdomen/GI: Soft, non-tender, with normal bowel sounds. No distension or tympany. No guarding or rebound. No evidence of tenderness throughout. Back: No spinal tenderness. No costovertebral tenderness. Full range of motion. Skin: Warm, dry with normal turgor. Normal color with no rashes, no lesions, and no evidence of cellulitis. MS/ Extremity: Pulses equal, no cyanosis. Neurovascular intact. Full, normal range of motion. Neuro: Awake and alert, GCS 15, oriented to person, place, time, and situation. Cranial nerves II-XII grossly intact. Motor strength 5/5 in all extremities. Sensory grossly intact. Cerebellar exam normal. Normal gait. Psych: Awake, alert, with orientation to person, place and time. Behavior, mood, and affect are within normal limits. Vital Signs: 00:51 BP 133 / 79; Pulse 78; Resp 11; Pulse Ox 96% on R/A; ll3 01:45 BP 135 / 75; Pulse 76; Resp 10; Pulse Ox 98% on R/A; ll3 03:15 BP 136 / 75; Pulse 66; Resp 10; Pulse Ox 98% on R/A; ll3 Yohan Coma Score: 10/27 23:52 Eye Response: spontaneous(4). Verbal Response: oriented(5). Motor Response: obeys tk1 commands(6). Total: 15. 18 00:51 Eye Response: spontaneous(4). Verbal Response: oriented(5). Motor Response: obeys ll3 commands(6). Total: 15. 01:45 Eye Response: spontaneous(4). Verbal Response: oriented(5). Motor Response: obeys ll3 commands(6). Total: 15. 03:15 Eye Response: spontaneous(4). Verbal Response: oriented(5). Motor Response: obeys ll3 commands(6). Total: 15. Trauma Score (Adult): 10/27 23:52 Eye Response: spontaneous(1); Verbal Response: oriented(1); Motor Response: obeys tk1 commands(2); Systolic BP: > 89 mm Hg(4); Respiratory Rate: 10 to 29 per min(4); [place] Score: 15; Trauma Score: 12 MDM: 10/28 02:57 Patient medically screened. kdr 07:32 Data reviewed: vital signs, nurses notes, diagnostic data from outside facility. kdr Counseling: I had a detailed discussion with the patient and/or guardian regarding: the historical points, exam findings, and any diagnostic results supporting the discharge/admit diagnosis, the presence of at least one elevated blood pressure reading (>120/80) during this emergency department visit. 10/28 00:00 Order name: Basic Metabolic Panel; Complete Time: 02:42 kdr 10/28 00:00 Order name: CBC with Diff; Complete Time: 02:42 kdr 10/28 00:00 Order name: Type And Screen; Complete Time: 02:42 kdr 18 00:51 Order name: Head C Spine Cap Wo Con EDMS 10/28 00:00 Order name: Labs collected and sent; Complete Time: 00:33 kdr Administered Medications: 00:25 Drug: fentaNYL (PF) 25 mcg Route: IVP; Site: left forearm; ll3 03:32 Follow up: Response: No adverse reaction; Marked relief of symptoms ll3 00:27 Drug: Zofran (Ondansetron) 4 mg Route: IVP; Site: left forearm; ll3 03:31 Follow up: Response: No adverse reaction ll3 03:29 Drug: Tetanus-Diphtheria Toxoid Adult 0.5 ml {Integration Developer: [email or web address]. Exp: ll3 12/31/2022. Lot #: [id number]. } Route: IM; Site: right deltoid; 03:31 Follow up: Response: No adverse reaction ll3 Disposition Summary: 10/28/21 02:57 Discharge Ordered Location: Home kdr Problem: new kdr Symptoms: have improved kdr Condition: Stable kdr Diagnosis - Unspecified injury of head, initial encounter kdr - Contusion of other part of head kdr - Abrasion of left elbow kdr Followup: kdr - With: Private Physician - When: 2 - 3 days - Reason: If symptoms return, Further diagnostic work-up, Recheck today's complaints, Continuance of care, Re-evaluation by your physician Discharge Instructions: - Discharge Summary Sheet kdr - Abrasion, [id number] kdr - Head Injury, Adult, [id number] kdr Forms: - Medication Reconciliation Form kdr - Thank You Letter kdr Prescriptions: - Zofran 4 mg Oral Tablet - take 1 tablet by ORAL route every 4-6 hours As needed; 12 tablet; Refills: 0, kdr Product Selection Permitted - Tramadol 50 mg Oral Tablet - take 1 tablet by ORAL route every 8 hours as needed; 12 tablet; Refills: 0, kdr Product Selection Permitted Signatures: Dispatcher [employer] EDWY Jacobo Stinson MD MD kdr Jackie Delgado RN RN 3 Ai Dick1 Corrections: (The following items were deleted from the chart) 00:51 00:00 Head C Spine CAP W Con+[id number].RAD.BRZ ordered. EDWY EDMS
[2021-10-28] MEDS ORDERED: TETANUS & DIPHTHERIA TOX,ADULT 0.5 ML VIAL ONE (03:13)
[2021-10-28 07:01] VITALS: BP 135/75; O2SAT 98
--- NOTE | 2021-10-28 11:04 | RAD REPORT ---
EXAM DESCRIPTION: CT - Head C Spine Cap Kayli Melendez - 10/28/2021 6:11 am CLINICAL HISTORY: 71 years Male PAIN, patient fell and hit back of head, unknown LOC, had stroke 2 w eeks ago TECHNIQUE: Multiple axial CT images of the brain, cervical spine, chest, abdomen and pelvis were per formed followed by sagittal and coronal reconstructed images. The CT study is performed according to ALARA (as low as reasonably achievable) or ALARA/IMAGE GENTLY, with automatic adjustment of mA and/or kV according to patient size. Performed on: 10/28/2021 at 12:41 AM COMPARISON: Previous brain MRI performed on 10/08/[address] performed on 10/06/2021. FINDINGS: CT HEAD: There is no evidence of mass, acute mass effect or midline shift. There are no acute extra-axial flui d collections. There is no evidence of acute intracranial hemorrhage. The cerebral sulci and ventricles are normal in size and configuration. There is a subacute left occipital lobe cortical infarct. Otherwise, there are no focal abnormal area s of increased or decreased attenuation. There is no significant mucosal thickening of the paranasal sinuses. The mastoid air cells are clear. The orbital contents are grossly unremarkable. No acute osseous abnormalities are identified. No focal soft tissue abnormalities are identified. CT CERVICAL SPINE: The cervical vertebrae are normal in height. There is normal alignment of the vertebrae. There is mod erate disc space narrowing throughout the cervical spine most pronounced from C3-C4 through C6-C7. Th ere is mild degenerative spondylosis at these levels. Bone mineralization is normal. The atlanto-a xial articulation is preserved and the odontoid process is intact. There is normal alignment of the facet joints on the parasagittal images. There are no significant de generative changes of the cervical spine. There is no evidence of acute fracture or subluxation. There is multilevel mild canal stenosis due to disc osteophyte complexes predominantly from C3-C4 through C6-C7. There is multilevel bilateral ne ural foraminal stenosis secondary to uncovertebral joint hypertrophy. The prevertebral and paraspinal soft tissues are unremarkable. The lung apices are clear. CT CHEST: Lungs: The lungs are well expanded and are clear. There is minimal fibrosis and/or atelectasis along the superior lateral and inferior medial right hemithorax. There are no pleural effusions. There is n o pneumothorax. The central airways are patent. Heart: The heart is normal in size. There is no pericardial effusion. Mediastinum: The mediastinum is unremarkable. The mediastinal vessels are normal in caliber and con tour. Bones: No acute osseous abnormalities are identified. There are remote postsurgical changes consisten t with a right shoulder arthroplasty. The thoracic vertebrae are normal in height and alignment. Ther e is degenerative spurring along the thoracic spine with bridging osteophytes at multiple levels. The sternum is intact. Soft tissues: No focal soft tissue abnormalities are identified. Lymphadenopathy: No pathologic hilar, mediastinal or axillary lymphadenopathy is identified. CT ABDOMEN/PELVIS: Liver: The liver is enlarged and measures approximately 21 cm in craniocaudal dimension. No focal hep atic abnormalities are identified. Liver attenuation is within normal limits. Spleen: The spleen is enlarged and measures approximately 17.5 cm in craniocaudal dimension Gallbladder and bile duct: The gallbladder is well distended and contains multiple gallstones. Ther e is no biliary ductal dilatation. Pancreas: The pancreas is grossly normal in size and configuration. Adrenal Glands: The adrenal glands are normal in size and configuration. Kidneys: The kidneys are normal in size and configuration. There is no evidence of hydronephrosis. Th ere is no evidence of nephrolithiasis. No definite solid or cystic renal mass lesions are identified. Stomach: The stomach is grossly normal. There is no definite hiatal hernia. Bowel: The bowel gas pattern is non specific and non obstructive. There is scattered colonic divertic ulosis. The small and large bowel are normal in caliber and contour. Appendix: The appendix is not clearly identified. There is no CT evidence to suggest acute appendicit is. Free air: There is no evidence of free air. Free fluid: There is no evidence of free fluid. Vasculature: The aorta is normal in caliber and contour. There are atherosclerotic calcifications jean-paul ng the abdominal aorta and iliac arteries. The inferior vena cava is grossly unremarkable. Lymphadenopathy: No pathologic lymphadenopathy is identified. Bladder: The bladder is well distended and smooth in contour. Reproductive: The prostate gland is grossly within normal limits. Bones: No acute osseous abnormalities are identified. There are bilateral hip arthroplasties which pr oduces streak artifact in the region of the pelvis and result in degradation of image quality. No acu te lumbar spine fracture is identified. Soft tissues: No focal soft tissue abnormalities are identified. There is a small fat-containing supr aumbilical ventral abdominal wall hernia. There are small bilateral fat-containing inguinal hernias. IMPRESSION: CT HEAD: 1. There is no evidence of acute intracranial pathology. 2. Subacute left occipital lobe cortical infarct. CT CERVICAL SPINE: 1. No evidence of acute cervical spine injury. 2. Multilevel degenerative changes of the cervical spine as described above. CT CHEST: 1. No evidence of acute intrathoracic disease. 2. No definite acute osseous abnormality is identified. CT SCAN ABDOMEN AND PELVIS: 1. No evidence of acute intra-abdominal or intrapelvic pathology. 2. Hepatosplenomegaly. 3. Scattered colonic diverticulosis. 4. Cholelithiasis. 5. Small fat-containing supraumbilical ventral abdominal wall hernia. 6. Bilateral hip arthroplasties which produces streak artifact and degradation of image quality in th e region of the pelvis. Electronically signed by: Barbara Baker DO 10/28/2021 1:48 AM CDT Due to temporary technical issues with the PACS/Fluency reporting system, reports are being signed by the in house radiologist without review as a courtesy to ensure prompt reporting. The interpreting r adiologist is fully responsible for the content of the report.
== END 2021-10-28 03:35 | disposition home or self-care (01) ==
LOC: ER 23:43
DX: S00.81XA Abrasion of other part of head, initial encounter (principal); S50.312A Abrasion of left elbow, initial encounter; S00.83XA Contusion of other part of head, initial encounter; W18.30XA Fall on same level, unspecified, initial encounter; Y93.01 Activity, walking, marching and hiking; E11.9 Type 2 diabetes mellitus without complications; Z23 Encounter for immunization; Z88.1 Allergy status to other antibiotic agents; Z88.5 Allergy status to narcotic agent; Z88.6 Allergy status to analgesic agent; Z91.048 Other nonmedicinal substance allergy status; Z96.612 Presence of left artificial shoulder joint; Z96.611 Presence of right artificial shoulder joint; Z96.643 Presence of artificial hip joint, bilateral
CPT/HCPCS: 85025; 80048; 36415; 86900; 86850; 86901; 70450; 71250; 72125; 90471; 90714; 96375; 96374; 99285; J3010; J2405

== ENCOUNTER 2022-04-02 00:07 | Emergency (ER) | payer OTHER ==
--- OUTSIDE RECORDS SUMMARY | 2022-04-02 00:12 | XMS REPORT | Continuity of Care Document ---
:1950 Author Organization [facility] t Address [address] [place] [address] Care Team Providers Name Role Phone Abraham Weller Primary Care Physician ALTON DENISE Attending Clinician Unavailable DANTE SAMUEL Attending Clinician Unavailable Dante Samuel MD Attending Clinician Only, Janel Test Attending Clinician Unavailable Doctor Unassigned, [place] Attending Clinician Unavailable Pob, [facility] Attending Clinician Unavailable Jerome Caballero MD Attending Clinician ALTON DENISE Admitting Clinician Unavailable DANTE SAMUEL Admitting Clinician Unavailable Dante Samuel MD Admitting Clinician Payers Payer Name Policy Type Policy Number Effective Date Expiration Date S ource [employer] MEDICARE [id number] 2021 ADV 00:00:00 [employer] CHOICE [id number] 2021 00:00:00 Problems Condition Condition Condition Status Onset Resolution Last Treating Co mments Source Name Details Category Date Date Treatment Clinician Date No known No known Disease Unive rs active active ity of problems problems [facility] Branch Allergies, Adverse Reactions, Alerts Allergy Allergy Status Severity Reaction(s) Onset Inactive Treating Comm ents Source Name Type Date Date Clinician Iodine Propensi Active Anaphylaxis Uni vers And ty to 3-07 ity of Iodide adverse 00:00: [place] Containi reaction 00 Medica l ng s Branch Products IODINE Drug Active Anaphylaxis Unive rs AND Class 3-07 ity of IODIDE 00:00: [place] CONTAINI 00 Medical NG Branch PRODUCTS LEVOFLOX Allergy Active High Hives 2021-[address] [facility] MORPHINE Allergy Active High Hives 2-[address] [facility] HYDROMOR Allergy Active High Hives 2-[address] [facility] PHONE [facility] IBUPROFE Allergy Active High Hives 2-[address] [facility] IODINE Allergy Active High Hives 2-[address] [facility] Hydromor Propensi Active Unknown - 2021-0 Uni vers phone ty to See comments 1-14 ity of adverse 00:00: [place] reaction 00 Medical s Branch Ibuprofe Propensi Active Anaphylaxis 2-0 U nivers n ty to 1-14 ity of adverse 00:00: [place] reaction 00 Medical s Branch Levoflox Propensi Active Other - See 2021-0 aggitate d Univers acin ty to comments 1-14 ity of adverse 00:00: [place] reaction 00 Medical s Branch Morphine Propensi Active Anaphylaxis 2-0 U nivers ty to 1-14 ity of [...] 00 Medical Branch LEVOFLOX DRUG Active Other-Cmnt 2021-0 Univ ers ACIN INGREDI 1-14 ity of 00:00: [place] 00 Medical Branch MORPHINE DRUG Active Anaphylaxis 2-0 Uni vers INGREDI 1-14 ity of 00:00: [place] 00 Medical Branch SHELLFIS DRUG Active Unknown-Cmnt 2021-0 Un anil H INGREDI 1-14 ity of DERIVED 00:00: [place] 00 Medical Branch Social History Social Habit Start Date Stop Date Quantity Comments Source Exposure to 2022-03-13 2022-03-23 Not sure University of SARS-CoV-2 00:00:00 12:19:00 [facility] (event) [facility] Tobacco use and 2021-08-26 2021-08-26 Smokeless tobacco Un iversity of exposure 00:00:00 00:00:00 non-user [facility] [place] [facility] Sex Ass[birth year] At [birth year] Universit y of 00:00:00 00:00:00 [facility] [place] [facility] Smoking Status Start Date Stop Date Source Never smoked tobacco [facility] Medications Ordered Filled Start Stop Current Ordering Indication Dosage Frequency Signature Comments Components Source Medication Medication Date Date Medication? Clinician (SIG) Name Name sodium 2021- No PRN, Univers chloride 03-29 Starting ity of (NS) 15:57: 16:06 on Sun [place] injection 00 :24 03/29/22 at Medi jacy 1057, Branch Until Sun03/29/22 at 1106, Routine, Intra-op neomycin-po 2021- No PRN, Unive rs lymyxin-dex 03-29 Starting ity of amethasone 15:57: 16:06 on [place] (MAXITROL) 00 :24 03/29/22 at [facility] ical 3.5 1057, Branch mg/g-10,000 Until Sun unit/g-0.1 03/29/22 at % 1106, ophthalmic Routine, ointment Intra-op dexamethaso 2021- No PRN, Unive rs ne 03-29 Starting ity of (DECADRON 15:57: 16:06 on Sun [place] PHOSPHATE) 00 :24 03/29/22 at Med ical injection 1057, Branch Until Sun03/29/22 at 1106, Routine, Intra-op carbachoL 2021- No PRN, Univers (MIOSTAT) 03-29 Starting ity o f 0.01 % 15:56: 16:06 on Sun [place] intraocular 00 :24 03/29/22 at Me dical injection 1056, Branch Until Sun03/29/22 at 1106, Routine, Intra-op ceFAZolin 2021- No PRN, Univers (ANCEF) 03-29 Starting ity of injection 15:47: 16:06 on Sun [place] 00 :24 03/29/22 at Medical 1047, Branch Until 03/29/22 at 1106, LIVIER, Intra-op EPINEPHrine 2021- No PRN, Unive rs 1:1,000 (1 03-29 Starting ity of mg/mL) 15:47: 16:06 on Sun [place] (ADRENALIN) 00 :24 22 at Dc dical injection 1047, Branch Until 03/29/22 at 1106, Routine, Intra-op chondroitin 2021- No PRN, Unive rs sulf-sod 03-29 Starting ity of hyaluronate 15:47: 16:06 on Sun [place] (DUOVISC 00 :24 03/29/22 at Medic al VISCO 1047, Branch ELASTIC) Until Wed intraocular 03/29/22 at injection 1106, Routine, Intra-op balanced 2021- No PRN, Univers salt irrig 03-29 Starting ity of soln comb1 15:46: 16:06 [place] (BSS PLUS) 00 :24 03/29/22 at [facility] ical ophthalmic 1046, Branch solution Until Wed 500 mL bag 03/29/22 at 1106, Routine, Intra-op water for 2021- No PRN, Univers irrigation 03-29 Starting ity of irrigation 15:39: 16:06 [place] solution 00 :24 03/29/22 at Medic al 1039, Branch Until 03/29/22 at 1106, Routine, Intra-op Hyaluronida 2021- No PRN, Unive rs se, Human 03-29 Starting ity o f Recomb. 15:35: 16:06 on Sun [place] (HYLENEX) 00 :24 03/29/22 at Medi jacy injection 1035, Branch Until 03/29/22 at 1106, Routine, Intra-op eye block 2021- No PRN, Univers syringe 11 03-29 Starting ity of mL 15:35: 16:06 on Sun [place] 00 :24 03/29/22 at Medical 1035, Branch Until 03/29/22 at 1106, Intra-op tropicamide 2021- No 1[drp] 1 Drop, Univers (MYDRIACYL) 03-29 Right Eye, i ty of 1 % 13:45: 13:48 ONCE, 1 [place] ophthalmic 00 :00 dose, On Medic al drops 1 Sun Branch Drop 03/29/22 at 0845, Routine, DSU Pre-op phenylephri 2021- No 1[drp] 1 Drop, Univers ne 03-29 Right Eye, ity of (ANDREA-SYNEPH 13:45: 13:47 [place] 2.5 % 00 :00 dose, On Medi jacy ophthalmic Wed Branch drops 1 03/29/22 at Drop 0845, Routine, DSU Pre-op cyclopentol 2021- No 1[drp] 1 Drop, Univers ate 03-29 Right Eye, ity of (CYCLOGYL) 13:45: 13:47 ONCE, 1 [place] 1 % 00 :00 dose, On Medical ophthalmic Wed Branch drops 1 03/29/22 at Drop 0845, Routine, DSU Pre-op lactated 2021- No 1000mL at 42 Unive rs ringers IV 03-29 mL/hr, ity of infusion 13:45: 13:55 1,000 mL, [place] 1,000 mL 00 :00 IV Medical Infusion, Branch ONCE, 1 dose, On Sun03/29/22 at 0845, Routine, DSU Pre-op tropicamide 2021- No 1[drp] 1 Drop, Univers (MYDRIACYL) 03-29 Right Eye, i ty of 1 % 13:45: 13:48 ONCE, 1 [place] ophthalmic 00 :00 dose, On Medic al drops 1 Sun Branch Drop 03/29/22 at 0845, Routine, DSU Pre-op phenylephri 2021- No 1[drp] 1 Drop, Univers ne 03-29 Right Eye, ity of (ANDREA-SYNEPH 13:45: 13:47 [place]CE[place] 2.5 % 00 :00 dose, On Medi jacy ophthalmic Wed Branch drops 1 03/29/22 at Drop 0845, Routine, DSU Pre-op cyclopentol 2021- No 1[drp] 1 Drop, Univers ate 03-29 Right Eye, ity of (CYCLOGYL) 13:45: 13:47 ONCE, 1 [place] 1 % 00 :00 dose, On Medical ophthalmic Wed Branch drops 1 03/29/22 at Drop 0845, Routine, DSU Pre-op lactated 2021- No 1000mL at 42 Unive rs ringers IV 03-29 mL/hr, ity of infusion 13:45: 13:55 1,000 mL, [place] 1,000 mL 00 :00 IV Medical Infusion, Branch ONCE, 1 dose, On Sun03/29/22 at 0845, Routine, DSU Pre-op neomycin-po 2021- No PRN, [place] [facility] rs lymyxin-dex 03-15 Starting ity of amethasone 15:17: 15:34 [place] (MAXITROL) 00 :50 03/15/[address] [facility] jacy 3.5 1017, Branch mg/g-10,000 Until Sun unit/g-0.1 03/15/22 at % 1034, ophthalmic Routine, ointment Intra-op carbachoL 2021- No PRN, Univers (MIOSTAT) 03-15 Starting ity o f 0.01 % 15:17: 15:34 on Sun [place] intraocular 00 :50 03/15/22 at Med ical injection 1017, Branch Until Sun03/15/22 at 1034, Routine, Intra-op dexamethaso 2021- No PRN, [facility] rs ne 03-15 Starting ity of (DECADRON 15:16: 15:34 on Sun [place] PHOSPHATE) 00 :50 03/15/22 at Medi jacy injection 1016, Branch Until Sun03/15/22 at 1034, Routine, Intra-op ceFAZolin 2021- No PRN, Univers (ANCEF) 03-15 Starting ity of injection 15:16: 15:34 on Sun [place] 00 :50 03/15/22 at Medical 1016, Branch Until Sun03/15/22 at 1034, LIVIER, Intra-op sodium 2021- No PRN, Univers chloride 03-15 Starting ity of (NS) 15:16: 15:34 on Wed [place] injection 00 :50 822 at Medic al 1016, Branch Until Sun03/15/22 at 1034, Routine, Intra-op chondroitin 2021- No PRN, Unive rs sulf-sod 03-15 Starting ity of hyaluronate 15:07: 15:34 on Wed [place] (DUOVISC 00 :50 22 at Medica l VISCO 1007, Branch ELASTIC) Until Sun intraocular 03/15/22 at injection 1034, Routine, Intra-op EPINEPHrine 2021- No PRN, Unive rs 1:1,000 (1 03-15 Starting ity of mg/mL) 15:04: 15:34 on Sun [place] (ADRENALIN) 00 :50 03/15/22 at Med ical injection 1004, Branch Until Sun03/15/22 at 1034, Routine, Intra-op balanced 2021- No PRN, Univers salt irrig 03-15 Starting ity of soln comb1 15:04: 15:34 [place] (BSS PLUS) 00 :50 03/15/22 at Medi jacy ophthalmic 1004, Branch solution Until Sun 500 mL bag 03/15/22 at 1034, Routine, Intra-op water for 2021- No PRN, Univers irrigation 03-15 Starting ity of irrigation 14:58: 15:34 [place] solution 00 :50 03/15/22 at Medica l 0958, Branch Until 03/15/22 at 1034, Routine, Intra-op Hyaluronida 2021- No PRN, Unive rs se, Human 03-15 Starting ity o f Recomb. 14:55: 15:34 on Sun [place] (HYLENEX) 00 :50 822 at Medic al injection 0955, Branch Until Sun03/15/22 at 1034, Routine, Intra-op eye block 2021- No PRN, Univers syringe 11 03-15 Starting ity of mL 14:54: 15:34 on Sun [place] 00 :50 03/15/22 at Medical 0954, Branch Until Sun03/15/22 at 1034, Intra-op tropicamide 2021- No 1[drp] 1 Drop, Univers (MYDRIACYL) 03-15 Left Eye, it y of 1 % 13:15: 13:37 ONCE, 1 [place] ophthalmic 00 :00 dose, On Medic al drops 1 Sun03/15/22 Branch Drop at 0815, Routine, DSU Pre-op phenylephri 2021- No 1[drp] 1 Drop, Univers ne 03-15 Left Eye, ity of (ANDREA-SYNEPH 13:15: 13:37 [place]CE[place] 2.5 % 00 :00 dose, On Medi jacy ophthalmic Sun03/15/22 Bra nch drops 1 at 0815, Drop Routine, DSU Pre-op cyclopentol 2021- No 1[drp] 1 Drop, Univers ate 03-15 Left Eye, ity of (CYCLOGYL) 13:15: 13:37 ONCE, 1 [place] 1 % 00 :00 dose, On Medical ophthalmic Sun03/15/22 Bra nch drops 1 at 0815, Drop Routine, DSU Pre-op lactated No 1000mL at 42 Unive rs ringers IV 03-15 mL/hr, ity of infusion 13:15: 13:38 1,000 mL, [place] 1,000 mL 00 :00 IV Medical Infusion, Branch ONCE, 1 dose, On Sun03/15/22 at 0815, Routine, DSU Pre-op tropicamide 2021- No 1[drp] 1 Drop, Univers (MYDRIACYL) 03-15 Left Eye, it y of 1 % 13:15: 13:37 ONCE, 1 [place] ophthalmic 00 :00 dose, On Medic al drops 1 Sun03/15/22 Branch Drop at 0815, Routine, DSU Pre-op phenylephri 2021- No 1[drp] 1 Drop, Univers ne 03-15 Left Eye, ity of (ANDREA-SYNEPH 13:15: 13:37 [place]CE[place] 2.5 % 00 :00 dose, On Medi jacy ophthalmic Sun03/15/22 Bra nch drops 1 at 0815, Drop Routine, DSU Pre-op cyclopentol 2021- No 1[drp] 1 Drop, Univers ate 03-15 0803 Left Eye, ity of (CYCLOGYL) 13:15: 13:37 ONCE, 1 [place] 1 % 00 :00 dose, On Medical ophthalmic Sun03/15/22 Bra nch drops 1 at 0815, Drop Routine, DSU Pre-op lactated 2021- No 1000mL at 42 Unive rs ringers IV 03-15 08-03 mL/hr, ity of infusion 13:15: 13:38 1,000 mL, [place] 1,000 mL 00 :00 IV Medical Infusion, Branch ONCE, 1 dose, On Sun03/15/22 at 0815, Routine, DSU Pre-op SUMAtriptan 2021-0 Yes 25mg Take 25 mg Univers 25 mg 7-18 by mouth ity of tablet 00:00: as needed. Medical Branch SUMAtriptan 2021-0 Yes 25mg Take 25 mg Univers 25 mg 7-18 by mouth ity of tablet 00:00: as needed. Medical Branch SUMAtriptan 2-0 Yes 25mg Take 25 mg Univers 25 mg 7-18 by mouth ity of tablet 00:00: as needed. Medical Branch SUMAtriptan 2-0 Yes 25mg Take 25 mg Univers 25 mg 7-18 by mouth ity of tablet 00:00: as needed. Medical Branch SUMAtriptan 2-0 Yes 25mg Take 25 mg Univers 25 mg 7-18 by mouth ity of tablet 00:00: as needed. Medical Branch SUMAtriptan 2022-0 Yes 25mg Take 25 mg Univers 25 mg 7-18 by mouth ity of tablet 00:00: as needed. Medical Branch SUMAtriptan 2022-0 Yes 25mg Take 25 mg Univers 25 mg 7-18 by mouth ity of tablet 00:00: as needed. Medical Branch SUMAtriptan 2022-0 Yes 25mg Take 25 mg Univers 25 mg 7-18 by mouth ity of tablet 00:00: as needed. [place] [address] Medical Branch clopidogreL 2-0 Yes 75mg Take 75 mg Univers 75 mg 6-06 by mouth ity of tablet 00:00: in the [place] 00 morning. Medical Branch clopidogreL 2022-0 Yes 75mg Take 75 mg Univers 75 mg 6-06 by mouth ity of tablet 00:00: in the [place] 00 morning. Medical Branch clopidogreL 2022-0 Yes 75mg Take 75 mg Univers 75 mg 6-06 by mouth ity of tablet 00:00: in the [place] 00 morning. Medical Branch clopidogreL 2022-0 Yes 75mg Take 75 mg Univers 75 mg 6-06 by mouth ity of tablet 00:00: in the [place] 00 morning. Medical Branch clopidogreL 2022-0 Yes 75mg Take 75 mg Univers 75 mg 6-06 by mouth ity of tablet 00:00: in the [place] 00 morning. Medical Branch clopidogreL 2022-0 Yes 75mg Take 75 mg Univers 75 mg 6-06 by mouth ity of tablet 00:00: in the [place] 00 morning. Medical Branch clopidogreL 2022-0 Yes 75mg Take 75 mg Univers 75 mg 6-06 by mouth ity of tablet 00:00: in the [place] 00 morning. Medical Branch clopidogreL 2022-0 Yes 75mg Take 75 mg Univers 75 mg 6-06 by mouth ity of tablet 00:00: in the [place] 00 morning. Medical Branch atorvastati 2022-0 Yes 40mg Take 40 mg Univers n 40 mg 5-25 by mouth ity of tablet 00:00: at [place] [address] bedtime. Medical Branch atorvastati 2022-0 Yes 40mg Take 40 mg Univers n 40 mg 5-25 by mouth ity of tablet 00:00: at [place] [address] bedtime. Medical Branch atorvastati 2022-0 Yes 40mg Take 40 mg Univers n 40 mg 5-25 by mouth ity of tablet 00:00: at [place] [address] bedtime. Medical Branch atorvastati 2022-0 Yes 40mg Take 40 mg Univers n 40 mg 5-25 by mouth ity of tablet 00:00: at [place] [address] bedtime. Medical Branch atorvastati 2022-0 Yes 40mg Take 40 mg Univers n 40 mg 5-25 by mouth ity of tablet 00:00: at [place] [address] bedtime. Medical Branch atorvastati 2022-0 Yes 40mg Take 40 mg Univers n 40 mg 5-25 by mouth ity of tablet 00:00: at [place] [address] bedtime. Medical Branch atorvastati 2022-0 Yes 40mg Take 40 mg Univers n 40 mg 5-25 by mouth ity of tablet 00:00: at [place] 00 bedtime. Medical Branch atorvastati 0 Yes 40mg Take 40 mg Univers n 40 mg 5-25 by mouth ity of tablet 00:00: at [place] 00 bedtime. Medical Branch predniSONE 0 Yes [id number] 20mg Take 1 Univers 20 mg 3-07 tablet by ity of tablet 00:00: mouth [place] 00 daily. Medical Branch diphenhydrA 0 Yes [id number] 25mg Take 1 Univers MINE 3-07 capsule by ity of (BENADRYL) 00:00: mouth [place] 25 mg 00 every 6 Medical capsule (six) Branch hours as needed for Allergies. predniSONE 0 Yes [id number] 20mg Take 1 Univers 20 mg 3-07 tablet by ity of tablet 00:00: mouth [place] 00 daily. Medical Branch diphenhydrA 0 Yes [id number] 25mg Take 1 Univers MINE 3-07 capsule by ity of (BENADRYL) 00:00: mouth [place] 25 mg 00 every 6 Medical capsule (six) Branch hours as needed for Allergies. predniSONE 0 Yes [id number] 20mg Take 1 Univers 20 mg 3-07 tablet by ity of tablet 00:00: mouth [place] 00 daily. Medical Branch diphenhydrA 0 Yes [id number] 25mg Take 1 Univers MINE 3-07 capsule by ity of (BENADRYL) 00:00: mouth [place] 25 mg 00 every 6 Medical capsule (six) Branch hours as needed for Allergies. predniSONE 2021-0 Yes [id number] 20mg Take 1 Univers 20 mg 3-07 tablet by ity of tablet 00:00: mouth [place] 00 daily. Medical Branch diphenhydrA 0 Yes [id number] 25mg Take 1 Univers MINE 3-07 capsule by ity of (BENADRYL) 00:00: mouth [place] 25 mg 00 every 6 Medical capsule (six) Branch hours as needed for Allergies. predniSONE 0 2021- No [id number] 20mg Take 1 Univers 20 mg 3-07 08-03 tablet by ity of tablet 00:00: 00:00 mouth [place] 00 :00 daily. Medical Branch diphenhydrA 2021-0 2021- No [id number] 25mg Take 1 Univers MINE 10-17- capsule by ity of (BENADRYL) 00:00: 00:00 mouth [place] 25 mg 00 :00 every 6 Medical capsule (six) Branch hours as needed for Allergies. predniSONE 2021- No [id number] 20mg Take 1 Univers 20 mg 10-17 tablet by ity of tablet 00:00: 00:00 mouth [place] 00 :00 daily. Medical Branch diphenhydrA 2021- No [id number] 25mg Take 1 Univers MINE 10-17- capsule by ity of (BENADRYL) 00:00: 00:00 mouth [place] 25 mg 00 :00 every 6 Medical capsule (six) Branch hours as needed for Allergies. LANTUS 0 Yes Univers SOLOSTAR 1-08 ity of U-100 00:00: [place] INSULIN 100 00 Medical unit/mL (3 Branch mL) injection LANTUS Yes Univers SOLOSTAR 1-08 ity of U-100 00:00: [place] INSULIN 100 00 Medical unit/mL (3 Branch mL) injection LANTUS 0 Yes 42U inject 42 Univer s SOLOSTAR 1-08 Units ity of U-100 00:00: under the [place] INSULIN 100 00 skin at Medic al unit/mL (3 bedtime. Branc h mL) injection LANTUS 0 Yes 42U inject 42 Univer s SOLOSTAR 1-08 Units ity of U-100 00:00: under the [place] INSULIN 100 00 skin at Medic al unit/mL (3 bedtime. Branc h mL) injection LANTUS 0 Yes 42U inject 42 Univer s SOLOSTAR 1-08 Units ity of U-100 00:00: under the [place] INSULIN 100 00 skin at Medic al unit/mL (3 bedtime. Branc h mL) injection LANTUS 2021-0 Yes 42U inject 42 Univer s SOLOSTAR 1-08 Units ity of U-100 00:00: under the [place] INSULIN 100 00 skin at Medic al unit/mL (3 bedtime. Branc h mL) injection LANTUS 2021-0 Yes 42U inject 42 Univer s SOLOSTAR 1-08 Units ity of U-100 00:00: under the [place] INSULIN 100 00 skin at Medic al unit/mL (3 bedtime. Branc h mL) injection LANTUS 2021-0 Yes 42U inject 42 Univer s SOLOSTAR 1-08 Units ity of U-100 00:00: under the [place] INSULIN 100 00 skin at Medic al unit/mL (3 bedtime. Branc h mL) injection LANTUS 2-0 Yes 42U inject 42 Univer s SOLOSTAR 1-08 Units ity of U-100 00:00: under the [place] INSULIN 100 00 skin at Medic al unit/mL (3 bedtime. Branc h mL) injection LANTUS 2021-0 Yes 42U inject 42 Univer s SOLOSTAR 1-08 Units ity of U-100 00:00: under the [place] INSULIN 100 00 skin at Medic al unit/mL (3 bedtime. Branc h mL) injection JARDIANCE 2020-08 Yes Univers 10 mg 2-21 ity of 00:00: [address] metFORMIN 2020-08 Yes Univers 1,000 mg 2-21 ity of tablet 00:00: [address] busPIRone 2020-08 Yes Univers 7.5 mg 2-21 ity of tablet 00:00: [address] PARoxetine 2020-08 Yes Univers 40 mg 2-21 ity of tablet 00:00: [address] JARDIANCE 2020-08 Yes Univers 10 mg 2-21 ity of 00:00: [address] metFORMIN 2020-08 Yes Univers 1,000 mg 2-21 ity of tablet 00:00: [address] busPIRone 2020-08 Yes Univers 7.5 mg 2-21 ity of tablet 00:00: [address] PARoxetine 2020-08 Yes Univers 40 mg 2-21 ity of tablet 00:00: [address] JARDIANCE 2020-08 Yes 10mg Take 10 mg Un anil 10 mg 2-21 by mouth ity of 00:00: daily. [address] metFORMIN 2020-08 Yes 1000mg Take 1,000 Univers 1,000 mg 2-21 mg by ity of tablet 00:00: mouth in [place] [address] the [facility] Branch and 1,000 mg in the evening. Take with meals. busPIRone 2021-1 Yes 7.5mg Take 7.5 Uni vers 7.5 mg 2-21 mg by ity of tablet 00:00: mouth as [place] [address] needed. Medical Branch PARoxetine 2020-08 Yes 40mg Take 40 mg U nivers 40 mg 2-21 by mouth ity of tablet 00:00: at [place] [address] bedtime. Medical Branch JARDIANCE 2020-08 Yes 10mg Take 10 mg Un anli 10 mg 2-21 by mouth ity of 00:00: daily. Medical Branch metFORMIN 2020-08 Yes 1000mg Take 1,000 Univers 1,000 mg 2-21 mg by ity of tablet 00:00: mouth in [place] the Medical morning Branch and 1,000 mg in the evening. Take with meals. busPIRone 2020-08 Yes 7.5mg Take 7.5 Uni vers 7.5 mg 2-21 mg by ity of tablet 00:00: mouth as [place] [address] needed. Medical Branch PARoxetine 2020-08 Yes 40mg Take 40 mg U nivers 40 mg 2-21 by mouth ity of tablet 00:00: at [place] [address] bedtime. Medical Branch JARDIANCE 2020-08 Yes 10mg Take 10 mg Un anil 10 mg 2-21 by mouth ity of 00:00: daily. [facility] metFORMIN 2020-08 Yes 1000mg Take 1,000 Univers 1,000 mg 2-21 mg by ity of tablet 00:00: mouth in [place] [address] the [facility] morning Branch and 1,000 mg in the evening. Take with meals. busPIRone 2020-08 Yes 7.5mg Take 7.5 Uni vers 7.5 mg 2-21 mg by ity of tablet 00:00: mouth as [place] [address] needed. Medical Branch PARoxetine 2020-08 Yes 40mg Take 40 mg U nivers 40 mg 2-21 by mouth ity of tablet 00:00: at [place] [address] bedtime. Medical Branch JARDIANCE 2020-08 Yes 10mg Take 10 mg Un anil 10 mg 2-21 by mouth ity of 00:00: daily. [facility] metFORMIN 2020-08 Yes 1000mg Take 1,000 Univers 1,000 mg 2-21 mg by ity of tablet 00:00: mouth in [place] [address] the Medical morning Branch and 1,000 mg in the evening. Take with meals. busPIRone 2020-08 Yes 7.5mg Take 7.5 Uni vers 7.5 mg 2-21 mg by ity of tablet 00:00: mouth as [place] [address] needed. Medical Branch PARoxetine 2020-08 Yes 40mg Take 40 mg U nivers 40 mg 2-21 by mouth ity of tablet 00:00: at [place] [address] bedtime. Medical Branch JARDIANCE 2020-08 Yes 10mg Take 10 mg Un anil 10 mg 2-21 by mouth ity of 00:00: daily. Medical Branch metFORMIN 2020-08 Yes 1000mg Take 1,000 Univers 1,000 mg 2-21 mg by ity of tablet 00:00: mouth in [place] the Medical morning Branch and 1,000 mg in the evening. Take with meals. busPIRone 2020-08 Yes 7.5mg Take 7.5 Uni vers 7.5 mg 2-21 mg by ity of tablet 00:00: mouth as [place] [address] needed. Medical Branch PARoxetine 2020-08 Yes 40mg Take 40 mg U nivers 40 mg 2-21 by mouth ity of tablet 00:00: at [place] [address] bedtime. Medical Branch JARDIANCE 2020-08 Yes 10mg Take 10 mg Un anil 10 mg 2-21 by mouth ity of 00:00: daily. Medical Branch metFORMIN 2020-08 Yes 1000mg Take 1,000 Univers 1,000 mg 2-21 mg by ity of tablet 00:00: mouth in [place] the Medical morning Branch and 1,000 mg in the evening. Take with meals. busPIRone 2020-08 Yes 7.5mg Take 7.5 Uni vers 7.5 mg 2-21 mg by ity of tablet 00:00: mouth as [place] [address] needed. Medical Branch PARoxetine 2020-08 Yes 40mg Take 40 mg U nivers 40 mg 2-21 by mouth ity of tablet 00:00: at [place] [address] bedtime. Medical Branch JARDIANCE 2020-08 Yes 10mg Take 10 mg Un anil 10 mg 2-21 by mouth ity of 00:00: daily. [place] [address] Medical Branch metFORMIN 2020-08 Yes 1000mg Take 1,000 Univers 1,000 mg 2-21 mg by ity of tablet 00:00: mouth in [place] [address] the Medical morning Branch and 1,000 mg in the evening. Take with meals. busPIRone 2020-08 Yes 7.5mg Take 7.5 Uni vers 7.5 mg 2-21 mg by ity of tablet 00:00: mouth as [place] [address] needed. Medical Branch PARoxetine 2020-08 Yes 40mg Take 40 mg U nivers 40 mg 2-21 by mouth ity of tablet 00:00: at [place] [address] bedtime. Medical Branch JARDIANCE 2020-08 Yes 10mg Take 10 mg Un anil 10 mg 2-21 by mouth ity of 00:00: daily. Medical Branch metFORMIN 2020-08 Yes 1000mg Take 1,000 Univers 1,000 mg 2-21 mg by ity of tablet 00:00: mouth in [place] 00 the Medical morning Branch and 1,000 mg in the evening. Take with meals. busPIRone 2020-08 Yes 7.5mg Take 7.5 Uni vers 7.5 mg 2-21 mg by ity of tablet 00:00: mouth as [place] [address] needed. Medical Branch PARoxetine 2020-08 Yes 40mg Take 40 mg U nivers 40 mg 2-21 by mouth ity of tablet 00:00: at [place] [address] bedtime. Medical Branch donepeziL 2020-08 Yes Univers 10 mg 2-17 ity of tablet 00:00: [place] Medical Branch donepeziL 2020-08 Yes Univers 10 mg 2-17 ity of tablet 00:00: [place] Medical Branch donepeziL 2020-08 Yes 10mg Take 10 mg Un anil 10 mg 2-17 by mouth ity of tablet 00:00: at [place] [address] bedtime. Medical Branch donepeziL 2020-08 Yes 10mg Take 10 mg Un anil 10 mg 2-17 by mouth ity of tablet 00:00: at [place] [address] bedtime. Medical Branch donepeziL 2020-08 Yes 10mg Take 10 mg Un anil 10 mg 2-17 by mouth ity of tablet 00:00: at [place] [address] bedtime. Medical Branch donepeziL 2020-08 Yes 10mg Take 10 mg Un anil 10 mg 2-17 by mouth ity of tablet 00:00: at [place] [address] bedtime. Medical Branch donepeziL 2020-08 Yes 10mg Take 10 mg Un anil 10 mg 2-17 by mouth ity of tablet 00:00: at [place] [address] bedtime. Medical Branch donepeziL 2020-08 Yes 10mg Take 10 mg Un anil 10 mg 2-17 by mouth ity of tablet 00:00: at [place] [address] bedtime. Medical Branch donepeziL 2020-08 Yes 10mg Take 10 mg Un anil 10 mg 2-17 by mouth ity of tablet 00:00: at [place] [address] bedtime. Medical Branch donepeziL 2020-08 Yes 10mg Take 10 mg Un anil 10 mg 2-17 by mouth ity of tablet 00:00: at [place] [address] bedtime. Medical Branch HUMALOG 2020-08 Yes Univers KWIKPEN 1-27 ity of INSULIN 100 00:00: [place] unit/mL 00 Medical injection Branch tamsulosin 2020-08 Yes Univers 0.4 mg 24 1-27 ity of hr capsule 00:00: [place] 00 Medical Branch HUMALOG 2020-08 Yes Univers KWIKPEN 1-27 ity of INSULIN 100 00:00: [place] unit/mL 00 Medical injection Branch tamsulosin 2020-08 Yes Univers 0.4 mg 24 1-27 ity of hr capsule 00:00: [place] 00 Medical Branch HUMALOG 2020-08 Yes 6U inject 6 Univer s KWIKPEN 1-27 Units ity of INSULIN 100 00:00: under the [place] unit/mL 00 skin in Medical injection the Branch morning and 6 Units at noon and 6 Units in the evening. inject before meals. tamsulosin 2020-08 Yes .4mg Take 0.4 Uni vers 0.4 mg 24 1-27 mg by ity of hr capsule 00:00: mouth in [place] 00 the Medical morning. Branch HUMALOG 2020-08 Yes 6U inject 6 Univer s KWIKPEN 1-27 Units ity of INSULIN 100 00:00: under the [place] unit/mL 00 skin in Medical injection the Branch morning and 6 Units at noon and 6 Units in the evening. inject before meals. tamsulosin 2020-08 Yes .4mg Take 0.4 Uni vers 0.4 mg 24 1-27 mg by ity of hr capsule 00:00: mouth in [place] 00 the Medical morning. Branch HUMALOG 2020-08 Yes 6U inject 6 Univer s KWIKPEN 1-27 Units ity of INSULIN 100 00:00: under the [place] unit/mL 00 skin in Medical injection the Branch morning and 6 Units at noon and 6 Units in the evening. inject before meals. tamsulosin 2020-08 Yes .4mg Take 0.4 Uni vers 0.4 mg 24 1-27 mg by ity of hr capsule 00:00: mouth in [place] 00 the Medical morning. Branch HUMALOG 2020-08 Yes 6U inject 6 Univer s KWIKPEN 1-27 Units ity of INSULIN 100 00:00: under the [place] unit/mL 00 skin in Medical injection the Branch morning and 6 Units at noon and 6 Units in the evening. inject before meals. tamsulosin 2020-08 Yes .4mg Take 0.4 Uni vers 0.4 mg 24 1-27 mg by ity of hr capsule 00:00: mouth in [place] 00 the Medical morning. Branch HUMALOG 2020-08 Yes 6U inject 6 Univer s KWIKPEN 1-27 Units ity of INSULIN 100 00:00: under the [place] unit/mL 00 skin in Medical injection the Branch morning and 6 Units at noon and 6 Units in the evening. inject before meals. tamsulosin 2020-08 Yes .4mg Take 0.4 Uni vers 0.4 mg 24 1-27 mg by ity of hr capsule 00:00: mouth in [place] 00 the Medical morning. Branch HUMALOG 2020-08 Yes 6U inject 6 Univer s KWIKPEN 1-27 Units ity of INSULIN 100 00:00: under the [place] unit/mL 00 skin in Medical injection the Branch morning and 6 Units at noon and 6 Units in the evening. inject before meals. tamsulosin 2020-08 Yes .4mg Take 0.4 Uni vers 0.4 mg 24 1-27 mg by ity of hr capsule 00:00: mouth in [place] 00 the Medical morning. Branch HUMALOG 2020-08 Yes 6U inject 6 Univer s KWIKPEN 1-27 Units ity of INSULIN 100 00:00: under the [place] unit/mL 00 skin in Medical injection the Branch morning and 6 Units at noon and 6 Units in the evening. inject before meals. tamsulosin 2020-08 Yes .4mg Take 0.4 Uni vers 0.4 mg 24 1-27 mg by ity of hr capsule 00:00: mouth in [place] 00 the Medical morning. Branch HUMALOG 2020-08 Yes 6U inject 6 Univer s KWIKPEN 1-27 Units ity of INSULIN 100 00:00: under the [place] unit/mL 00 skin in Medical injection the Branch morning and 6 Units at noon and 6 Units in the evening. inject before meals. tamsulosin 2020-08 Yes .4mg Take 0.4 Uni vers 0.4 mg 24 1-27 mg by ity of hr capsule 00:00: mouth in [place] 00 the Medical morning. Branch Vital Signs Vital Name Observation Time Observation Value Comments Source Systolic blood 2022-03-29 16:25:00 141 mm[Hg] Univer sity of [facility] Diastolic blood 2022-03-29 16:25:00 76 [facility]Hg[facility]22-[facility]-29 16:25:00 64 /min [facility] Respiratory rate 2022-03-29 16:25:00 15 /min [facility] Oxygen saturation in 2022-03-29 16:25:00 99 /min [facility] Arterial blood by [employer] Pulse oximetry [facility] Body temperature 2022-03-29 16:05:00 36.61 Eneida [facility] Body height 2022-03-23 12:02:00 175 cm [facility] Body weight 2022-03-23 12:02:00 116.6 kg [facility] BMI 2022-03-23 12:02:00 38.07 kg/m2 [facility] Systolic blood 2022-03-29 13:41:00 151 mm[Hg] Univer sity of [facility] Diastolic blood 2022-03-29 13:41:00 74 mm[Hg] Unive rsity of [facility] Heart rate 2022-03-29 13:41:00 69 /min [facility] Body temperature 2022-03-29 13:41:00 36.5 Eneida [facility] 2022-03-29 13:41:00 18 /min [facility] saturation in 2022-03-29 13:41:00 98 /min University of Arterial blood by [facility] Pulse oximetry Branch Body height 2022-03-23 12:02:00 175 cm [facility]i ty [facility] [place] [facility] Body weight 2022-03-23 12:02:00 116.6 kg [facility] ty [facility] [place] [facility] BMI 2022-03-23 12:02:00 38.07 kg/m2 [facility] [place] [facility] Systolic blood 2022-03-15 16:00:00 139 mm[Hg] Univer sity of pressure [place] [facility] Diastolic blood 2022-03-15 16:00:00 66 mm[Hg] Unive rsity of pressure [place] [facility] Heart rate 2022-03-15 16:00:00 70 /min [facility] [place] [facility] Body temperature 2022-03-15 16:00:00 36.33 Eneida Univ ersity [facility] [place] [facility] Oxygen saturation in 2022-03-15 16:00:00 99 /min University of Arterial blood by [facility] Pulse oximetry Branch Respiratory rate 2022-03-15 15:59:00 13 /min Univ ersity [facility] [place] [facility] Body height 2022-03-01 18:11:00 175 cm [facility] [place] [facility] Body weight 2022-03-01 18:11:00 116.6 kg [facility] [place] [facility] BMI 2022-03-01 18:11:00 38.07 kg/m2 [facility] [place] [facility] Systolic blood 2022-03-15 13:46:00 160 mm[Hg] Univer sity of pressure [place] [facility] Diastolic blood 2022-03-15 13:46:00 72 mm[Hg] Unive rsity of pressure [place] [facility] Heart rate 2022-03-15 13:46:00 68 /min [facility] [place] [facility] Body temperature 2022-03-15 13:46:00 36.28 Eneida Univ ers[facility] [place] [facility] Respiratory rate 2022-03-15 13:46:00 18 /min Univ ersity [facility] [place] [facility] Oxygen saturation in 2022-03-15 13:46:00 97 /min University of Arterial blood by [facility] Pulse oximetry Branch Body height 2022-03-01 18:11:00 175 cm [facility] [place] [facility] Body weight 2022-03-01 18:11:00 116.6 kg [facility] BMI 2022-03-01 18:11:00 38.07 kg/m2 [facility] Procedures Procedure Date / Time Performing Source Performed Clinician PHACOEMULSIFICATION OF 2022-03-29 Dante Samuel [facility] CATARACT WITH INTRAOCULAR 15:18:00 Medica l Branch LENS IMPLANT POCT GLUCOSE (AUTOMATED) 2022-03-[address] [facility] 13:47:00 Medical Branch POCT GLUCOSE (AUTOMATED) 2022-03-[address] [facility] 13:47:00 Medical Branch CONSENT/REFUSAL FOR DIAGNOSIS 2022-03-27 Doctor Unassigned, [facility] AND TREATMENT 21:06:25 [place] [facility] CONSENT/REFUSAL FOR DIAGNOSIS 2022-03-27 Doctor Unassigned, [facility] AND TREATMENT 21:06:25 [place] [facility] ASSIGNMENT OF BENEFITS 2022-03-27 Doctor Unassmarcos [facility] 21:05:55 [place] [facility] ASSIGNMENT OF BENEFITS 2022-03-27 Doctor Unassmarcos, [facility] 21:05:55 [place] [facility] PHACOEMULSIFICATION OF 2022-03-15 Dante Samuel [facility] CATARACT WITH INTRAOCULAR 14:45:00 Medica l Branch LENS IMPLANT POCT GLUCOSE(AGE >30DAYS) 2022-03-15 Shailesh Stiven [facility] 13:30:00 Medical Branch POCT GLUCOSE(AGE >30DAYS) 2022-03-15 Stiven Cash [facility] 13:30:00 Medical Branch POCT GLUCOSE (AUTOMATED) 2022-03-[address] [facility] 13:23:00 Medical Branch POCT GLUCOSE (AUTOMATED) 2022-03-[address] [facility] 13:23:00 Medical Branch ASSIGNMENT OF BENEFITS 2022-03-13 Doctor Unassmarcos, [facility] 21:10:58 [place] [facility] PHYSICIAN ORDERS 2022-03-06 Doctor Unassigned, [facility] 05:01:00 [place] [facility] Encounters Start End Encounter Admission Attending Care Care Encounter Source Date/Time Date/Time Type Type Clinicians Facility Department ID 2021-10-07 Inpatient [address] ALTON [facility]ISE [facility] Neurology [id number] 14:48:54 [facility] 2022-03-29 2022-03-29 [facility] [id number] Univers 08:33:00 11:33:00 DANTE leesjoni [facility] 2022-03-29 2022-03-29 [facility] [id number] Univers 08:33:00 11:33:00 Encounter Dante DONG 350.1.13.10 [place] [id number] [facility] 071 [facility] 2022-03-29 2022-03-29 Surgery [facility] [id number] Univers 09:32:00 10:05:00 Dante DONG 350.1.13.10 [place] [id number] [facility] 020 Branch 2022-03-27 2022-03-27 Laboratory Only, Adc Test [facility] 1.2.840. 114 [id number] Univers 16:15:00 16:30:00 Only Dante Samuel 350.1.13.1 0 [place] [id number] [address] 2022-03-27 2022-03-27 Outpatient R [facility] [id number] Univers 16:15:00 16:15:00 [id number] wei [facility] 2022-03-27 2022-03-27 [facility] [id number] Univers 16:15:00 16:15:00 DANTE carvajal [facility] 2022-03-15 2022-03-15 [facility]PH [id number] Univers 08:04:00 11:05:00 DANTE carvajal [facility] 2022-03-15 2022-03-15 Hospital [facility] [id number] Univers 08:04:00 11:05:00 Encounter Dante DONG 350.1.13.10 [place] [id number] [facility] 020 Branch 2022-03-15 2022-03-15 [facility] [id number] Univers 08:58:00 09:31:00 Dante Jamie LETITIA 350.1.13.10 [place] [id number] [facility] 020 Branch 2022-03-13 2022-03-13 Laboratory Only, Adc Test [facility] 1.2.840. 114 [id number] Univers 13:30:00 13:45:00 Only Dante Samuel LETITIA 350.1.13.1 0 ity of [facility] [place] [id number] [facility] 353 Branch 2022-03-13 2022-03-13 Outpatient R [facility] [id number] Univers 13:30:00 13:30:00 [id number] ity of [facility] 2022-03-13 2022-03-13 [facility] [id number] Univers 13:30:00 13:30:00 [facility]22-[facility]-13 2022-03-13 Orders Doctor [facility] [id number] Univers 00:00:00 00:00:00 Only Unassigned, ANEL 350.1.13.10 ity of [place] [facility] 4.2.7.2.686 [place] [id number] [facility] 009 Branch 2022-03-06 2022-03-06 Rubber Attacher Janel Constantino Lab Main [facility] 1.2.8 40.114 [id number] Univers 15:30:00 15:45:00 Visit Geremias Dante Jamie LETITIA 350.1.13.1 0 ity of [facility] [place] [id number] [facility] 353 [facility] 2022-03-06 2022-03-06 Outpatient R [facility] [id number] Univers 15:30:00 15:30:00 [id number] ity [facility] 2022-03-06 2022-03-06 [facility] [id number] Univers 15:30:00 15:30:00 DANTE ity of [facility] 2022-03-06 2022-03-06 Orders Doctor PHU [id number] [id number] Univers 00:00:00 00:00:00 Only Unassigned, ANEL 350.1.13.10 ity of [place] [facility] 4.2.7.2.686 [place] [id number] [address] 2022-01-05 2022-01-05 Telephone Jerome Caballero [facility] 1.2.840.114 [id number] Univers 00:00:00 00:00:00 [facility] 350.1.13.10 it y of [place] 4.2.7.2.686 [place] [id number] [address] OFFICE BUILDING Results Test Description Test Time Test Comments Results Result Comments Source POCT GLUCOSE (AUTOMATED) 2022-03-29 13:50:06 Test Item Value Reference Range Interpretation Comme nts POCT GLU (test code = 7767005335) 230 mg/dL 70-110 H Lab Interpretation (test code = 86355-5) Abnormal [facility] GLUCOSE (AUTOMATED)2022-03-29 13:50:06 Test Item Value Reference Range Interpretation Comments POCT GLU (test code = 6022198109) 230 mg/dL 70-110 H Lab Interpretation (test code = Abnormal 68593-6) [facility] GLUCOSE (AUTOMATED)2022-03-15 13:26:07 Test Item Value Reference Range Interpretation Comments POCT GLU (test code = [id number]) 270 mg/dL 70-110 H Lab Interpretation (test code = Abnormal 04809-5) [facility] GLUCOSE (AUTOMATED)2022-03-15 13:26:07 Test Item Value Reference Range Interpretation Comments POCT GLU (test code = [id number]) 270 mg/dL 70-110 H Lab Interpretation (test code = Abnormal 53499-7) [facility] [id number] 00:00:00 Test Item Value Reference Range Interpretation Comments POCT Glu (age>30days) (test code = 270 mg/dL 70-110 A 3342) Lab Interpretation (test code = Abnormal 36207-3) [facility] [id number] 00:00:00 Test Item Value Reference Range Interpretation Comments POCT Glu (age>30days) (test code = 270 mg/dL 70-110 A 3342) Lab Interpretation (test code = Abnormal 38097-9) [facility]
[2022-04-02] MEDS ORDERED: GABAPENTIN 300 MG CAP ONE (00:38)
[2022-04-02] MEDS ORDERED: TRAMADOL HCL 50 MG TAB ONE (00:38)
--- NOTE | 2022-04-02 01:54 | ER ---
Nurse's Notes [facility] Name: Marcelino Mccall Age: 72 yrs Sex: Male : 1950 Arrival Date: 04/02/2022 Time: 00:09 Bed 6 Private MD: Diagnosis: Pain in left ankle and joints of left foot Presentation: 04/02 00:20 Chief complaint: Patient states: burning pain to left inner ankle off and on x 1 hour kl [employer]. Coronavirus screen: Vaccine status: Patient reports being unvaccinated. Ebola Screen: Patient negative for fever greater than or equal to 101.5 degrees Fahrenheit, and additional compatible Ebola Virus Disease symptoms. Initial Sepsis Screen: Does the patient meet any 2 criteria? No. Patient's initial sepsis screen is negative. Does the patient have a suspected source of infection? No. Patient's initial sepsis screen is negative. Risk Assessment: Do you want to hurt yourself or someone else? Patient reports no desire to harm self or others. Onset of symptoms was April 01, 2022 at 23:15. 00:20 Method Of Arrival: Ambulatory kl 00:20 Acuity: SUZI 3 kl Historical: - Allergies: 00:22 Dilaudid; kl 00:22 Ibuprofen; kl 00:22 Iodine; kl 00:22 Levaquin; kl 00:22 Morphine; kl - Home Meds: 00:22 buspirone 7.5 mg Oral tab 1 tab 2 times per day [Active]; donepezil 10 mg Oral tab 1 kl tab once daily [Active]; Jardiance 10 mg Oral tab 1 tab once daily [Active]; Lantus Sub-Q [Active]; metformin 1,000 mg Oral tab 1 tab 2 times per day [Active]; Novolog U-100 Insulin aspart 100 unit/mL Sub-Q soln [Active]; paroxetine HCl 40 mg Oral tab 1 tab once daily [Active]; tamsulosin 0.4 mg Oral cap 1 cap once daily [Active]; - PMHx: 00:22 diabetes mellitus; Liver disease; kl - PSHx: 00:22 Appendectomy; b/l knee replacement; b/l shoulder replacement; hip replacement; kl - Immunization history:: Adult Immunizations Pneumococcal vaccine is up to date, Flu vaccine is up to date. - Social history:: Smoking status: Patient denies any tobacco usage or history of. Screenin:26 Abuse screen: Denies threats or abuse. Nutritional screening: No deficits noted. Tuberculosis screening: No symptoms or risk factors identified. Fall Risk None identified. Assessment: 00:23 General: Appears distressed, uncomfortable, well groomed, well developed, Behavior is kl anxious, restless. Pain: Complains of pain in left medial ankle Pain currently is 10 out of 10 on a pain scale. Quality of pain is described as burning, sharp. Neuro: No deficits noted. Francois Agitation-Sedation Scale (RASS): 0 - Alert and Calm. Cardiovascular: No deficits noted. Respiratory: No deficits noted. Airway is patent Trachea midline Respiratory effort is even, unlabored, Respiratory pattern is regular. GI: No deficits noted. No signs and/or symptoms were reported involving the gastrointestinal system. : No deficits noted. No signs and/or symptoms were reported regarding the genitourinary system. EENT: No deficits noted. No signs and/or symptoms were reported regarding the EENT system. Derm: No deficits noted. No signs and/or symptoms reported regarding the dermatologic system. Musculoskeletal: Capillary refill < 3 seconds. 01:55 Reassessment: Patient appears in no apparent distress at this time. Patient is alert, kl oriented x 3, equal unlabored respirations, skin warm/dry/pink. Patient states feeling better. Vital Signs: 00:20 BP 137 / 81; Pulse 82; Resp 16; Temp 98.3(TE); Pulse Ox 99% on R/A; Weight 111.13 kg kl (R); Height 5 ft. 9 in. (175.26 cm); Pain 10/10; 01:55 BP 134 / 78; Pulse 80; Resp 18; Pulse Ox 97% ; kl 00:20 Body Mass Index 36.18 (111.13 kg, 175.26 cm) ED Course: 00:09 Patient arrived in ED. bp1 00:22 Triage completed. kl 00:23 Arm band placed on right wrist. jb4 00:26 Jacobo Stinson MD is Attending Physician. kdr 00:45 Ankle Left 3 View XRAY In Process Unspecified. EDMS 01:53 Abraham Trejo MD is Referral Physician. kdr 02:08 Patient has correct armband on for positive identification. Bed in low position. Call jb4 light in reach. Side rails up X 1. Client placed on continuous cardiac and pulse oximetry monitoring. NIBP monitoring applied. 02:08 No provider procedures requiring assistance completed. Patient did not have IV access jb4 during this emergency room visit. Administered Medications: 00:32 Drug: Gabapentin 300 mg Route: PO; [place] 01:55 Follow up: Response: Pain is decreased 00:32 Drug: traMADol 50 mg Route: PO; 01:54 Follow up: Response: Pain is decreased Medication: 02:09 VIS not applicable for this client. jb4 Outcome: :54 Discharge ordered by . riya 02:08 Discharged to home ambulatory, with family. jb4 02:08 Condition: stable 02:08 Discharge instructions given to patient, Instructed on discharge instructions, follow up and referral plans. medication usage, Demonstrated understanding of instructions, follow-up care, medications, Prescriptions given X 2. 02:10 Patient left the ED. jb4 Signatures: Dispatcher [employer] EDMS Denia Rosenbaum RN RN kl Rittger, Kevin, MD MD kdr Bryson, James, RN RN jb4 [place], Brittany [facility]
--- NOTE | 2022-04-02 01:54 | EDPHYS ---
Physician Documentation [facility] Name: Marcelino Mccall Age: 72 yrs Sex: Male : 1950 Arrival Date: 04/02/2022 Time: 00:09 Bed 6 Private MD: ED Physician Jacobo Stinson HPI: 04/02 08:05 This 72 yrs old Male presents to ER via Ambulatory with complaints of Ankle Pain. kdr 08:05 The patient presents with pain. The complaints affect the left ankle. Onset: The kdr symptoms/episode began/occurred suddenly, 1 hour(s) ago. Context: The problem was sustained at home, resulted from an unknown cause, The mechanism of injury is unknown. The patient can fully bear weight on the affected extremity. the patient is able to ambulate, with mild difficulty. Associated signs and symptoms: The patient has no apparent associated signs or symptoms. Modifying factors: The symptoms are alleviated by nothing, the symptoms are aggravated by nothing. Severity of symptoms: At their worst the symptoms were mild, in the emergency department the symptoms are unchanged. The patient has not experienced similar symptoms in the past. The patient has not recently seen a physician. Historical: - Allergies: 00:22 Dilaudid; kl 00:22 Ibuprofen; kl 00:22 Iodine; kl 00:22 Levaquin; kl 00:22 Morphine; kl - Home Meds: 00:22 buspirone 7.5 mg Oral tab 1 tab 2 times per day [Active]; donepezil 10 mg Oral tab 1 kl tab once daily [Active]; Jardiance 10 mg Oral tab 1 tab once daily [Active]; Lantus Sub-Q [Active]; metformin 1,000 mg Oral tab 1 tab 2 times per day [Active]; Novolog U-100 Insulin aspart 100 unit/mL Sub-Q soln [Active]; paroxetine HCl 40 mg Oral tab 1 tab once daily [Active]; tamsulosin 0.4 mg Oral cap 1 cap once daily [Active]; - PMHx: 00:22 diabetes mellitus; Liver disease; kl - PSHx: 00:22 Appendectomy; b/l knee replacement; b/l shoulder replacement; hip replacement; kl - Immunization history:: Adult Immunizations Pneumococcal vaccine is up to date, Flu vaccine is up to date. - Social history:: Smoking status: Patient denies any tobacco usage or history of. ROS: 08:05 Constitutional: Negative for fever, chills, and weight loss, Eyes: Negative for injury, kdr pain, redness, and discharge, Neck: Negative for injury, pain, and swelling, Cardiovascular: Negative for chest pain, palpitations, and edema, Respiratory: Negative for shortness of breath, cough, wheezing, and pleuritic chest pain, Abdomen/GI: Negative for abdominal pain, nausea, vomiting, diarrhea, and constipation, Back: Negative for injury and pain, : Negative for injury, bleeding, discharge, and swelling, MS/Extremity: Negative for injury and deformity, Skin: Negative for injury, rash, and discoloration, Neuro: Negative for headache, weakness, numbness, tingling, and seizure activity. Psych: Negative for depression, anxiety, suicide ideation, homicidal ideation, and hallucinations, Allergy/Immunology: Negative for hives, rash, and allergies, Endocrine: Negative for neck swelling, polydipsia, polyuria, polyphagia, and marked weight changes, Hematologic/Lymphatic: Negative for swollen nodes, abnormal bleeding, and unusual bruising. 08:05 MS/extremity: Positive for pain, of the anterior aspect of left ankle. Exam: 08:05 Musculoskeletal/extremity: ROM: no acute changes, Circulation is intact in all kdr extremities. Sensation intact. Compartment Syndrome exam of affected extremity: is normal. no pain, no numbness, no tingling, no sensation deficit, no palor, Joints: All joints appear normal with full range of motion. Weight bearing: able to fully bear weight, DVT Exam: 08:08 Constitutional: This is a well developed, well nourished patient who is awake, alert, kdr and in no acute distress. Head/Face: Normocephalic, atraumatic. Vital Signs: 00:20 BP 137 / 81; Pulse 82; Resp 16; Temp 98.3(TE); Pulse Ox 99% on R/A; Weight 111.13 kg kl (R); Height 5 ft. 9 in. (175.26 cm); Pain 10/10; 01:55 BP 134 / 78; Pulse 80; Resp 18; Pulse Ox 97% ; kl 00:20 Body Mass Index 36.18 (111.13 kg, 175.26 cm) MDM: 01:54 Patient medically screened. kdr 08:05 Data reviewed: vital signs, nurses notes, lab test result(s), radiologic studies. kdr Counseling: I had a detailed discussion with the patient and/or guardian regarding: the historical points, exam findings, and any diagnostic results supporting the discharge/admit diagnosis, lab results, radiology results, the need for outpatient follow up. 04/02 00:26 Order name: Ankle Left 3 View XRAY kdr Administered Medications: 00:32 Drug: Gabapentin 300 mg Route: PO; kl 01:55 Follow up: Response: Pain is decreased kl 00:32 Drug: traMADol 50 mg Route: PO; kl 01:54 Follow up: Response: Pain is decreased kl Disposition Summary: 04/02/22 01:54 Discharge Ordered Location: Home kdr Problem: new kdr Symptoms: have improved kdr Condition: Stable kdr Diagnosis - Pain in left ankle and joints of left foot kdr Followup: kdr - With: Private Physician - When: 2 - 3 days - Reason: If symptoms return, Further diagnostic work-up, Recheck today's complaints, Continuance of care, Re-evaluation by your physician Followup: kdr - With: Abraham Trejo MD - When: 2 - 3 days - Reason: If symptoms return, Further diagnostic work-up, Recheck today's complaints, Continuance of care, Re-evaluation by your physician Discharge Instructions: - Discharge Summary Sheet kdr - Joint Pain kdr - Musculoskeletal Pain kdr - Ankle Pain kdr Forms: - Medication Reconciliation Form kdr - Thank You Letter kdr - Prescription Opioid Use kdr Prescriptions: - Neurontin 300 mg Oral Capsule - take 1 capsule by ORAL route At bedtime; 10 capsule; Refills: 0, Product kdr Selection Permitted - Tramadol 50 mg Oral Tablet - take 1 tablet by ORAL route every 8 hours as needed; 12 tablet; Refills: 0, kdr Product Selection Permitted Signatures: Dispatcher [employer] Denia Chopra RN RN kl Rittger, Kevin, MD MD kdr
[2022-04-02 06:55] VITALS: TEMP 98.3
[2022-04-02 06:57] VITALS: BP 134/78; O2SAT 97
--- NOTE | 2022-04-03 12:06 | RAD REPORT ---
EXAM DESCRIPTION: RAD - Ankle Left 3 View - 04/02/2022 12:43 am CLINICAL HISTORY: PAIN. COMPARISON: None. TECHNIQUE: Three views of the left ankle were obtained: AP, oblique, and lateral radiographs. FINDINGS: No acute osseous abnormality is identified. 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 Prior healed fracture deformity of the distal fibular shaft. Small c hronic osseous fragment at the tip of the medial malleolus. Small chronic osseous fragment versus exc rescence lateral to the talar body. Small chronic osteophyte versus osseous fragment anterior to the tibiotalar joint. 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 Small chronic plantar fascial enthesophyte. No ankle mortise widening. The talar dome appears intact. Mild chronic soft tissue jacy cifications. Prominent calcific atherosclerosis. IMPRESSION: No acute osseous abnormality identified. Sequela of remote healed trauma. Electronically signed by: Manuela Tapia MD 04/02/2022 12:59 AM CDT Due to temporary technical issues with the PACS/Fluency reporting system, reports are being signed by the in house radiologists without review as a courtesy to insure prompt reporting. The interpreting radiologist is fully responsible for the content of the report.
== END 2022-04-02 02:10 | disposition home or self-care (01) ==
LOC: ER 00:07
DX: M25.572 Pain in left ankle and joints of left foot (principal); E11.9 Type 2 diabetes mellitus without complications; K76.9 Liver disease, unspecified; Z88.1 Allergy status to other antibiotic agents; Z88.5 Allergy status to narcotic agent; Z88.6 Allergy status to analgesic agent; Z91.048 Other nonmedicinal substance allergy status
CPT/HCPCS: 99283

== ENCOUNTER 2022-07-03 17:08 | Emergency (ER) | payer OTHER ==
--- OUTSIDE RECORDS SUMMARY | 2022-07-03 17:15 | XMS REPORT | Continuity of Care Document ---
:1950 Author Organization [facility] t Address [address] [place] [address] Care Team Providers Name Role Phone Abraham Weller Primary Care Physician ODETTE FRANCISCO Attending Clinician Unavailable Odette Francisco MD Attending Clinician DANTE ARCHULETA Attending Clinician Unavailable Doctor Unassigned, Joseph Attending Clinician Unavailable Dante Archuleta MD Attending Clinician Only, Adc Test Attending Clinician Unavailable Pob, Adc Lab Main Attending Clinician Unavailable Sergio Rodriguez MD Attending Clinician ROSE HECTOR Attending Clinician Unavailable Rose Wade Attending Clinician Caity Bernabe RN Attending Clinician Unavailable Jazzmine Alex Attending Clinician Unavailable Lab, Clc - Attending Clinician Unavailable Mando Goodman MD Attending Clinician BURTON LOUIE Attending Clinician Unavailable SHABBIR BENOIT Attending Clinician Unavailable Ac Joshi MD Attending Clinician Barbara Hodges RN Attending Clinician Unavailable LITA AGRAWAL Attending Clinician Unavailable King GEENA MD, Ac Henry Attending Clinician Lita Tang Attending Clinician ODETTE FRANCISCO Admitting Clinician Unavailable DANTE ARCHULETA Admitting Clinician Unavailable Dante Archuleta MD Admitting Clinician Payers Payer Name Policy Type Policy Number Effective Date Expiration Date S samantha [employer] MEDICARE [id number] 2021 ADV 00:00:00 [employer] CHOICE [id number] 2021 00:00:00 Problems Condition Condition Condition Status Onset Resolution Last Treating Co mments Source Name Details Category Date Date Treatment Clinician Date No known No known Disease Unive rs active active ity of problems problems [place] [facility] Allergies, Adverse Reactions, Alerts Allergy Allergy Status Severity Reaction(s) Onset Inactive Treating Comm ents Source Name Type Date Date Clinician Iodine Propensi Active Anaphylaxis 2021-0 Uni vers And ty to 3-07 ity of Iodide adverse 00:00: [place] Containi reaction 00 Medica l ng s Branch Products IODINE Drug Active Anaphylaxis 0 Unive rs AND Class 3-07 ity of IODIDE 00:00: [place] CONTAINI 00 Medical NG Branch PRODUCTS Iodine Propensi Active Anaphylaxis 0 Uni vers And ty to 3-07 ity of Iodide adverse 00:00: [place] Containi reaction 00 Medica l ng s Branch Products LEVOFLOX Allergy Active High Hives 2021-[address] [facility] Hydromor Drug Active Hives 2021-[address] [facility] phone Allergy [facility] Ibuprofe Drug Active Hives 2021-[address] [facility] Iodine Drug Active Hives 2021-[address] [facility] Levoflox Drug Active Hives 2021-[address] [facility] acin [facility]ergy [facility] Morphine Drug Active Hives 2021-[address] [facility] MORPHINE Allergy Active High Hives 2-[address] [facility] HYDROMOR Allergy Active High Hives 2021-[address] [facility] PHONE 2[facility]24 [facility] IBUPROFE Allergy Active High Hives 2-[address] [facility] N 2[facility]24 [facility] IODINE Allergy Active High Hives 2-[address] [facility] Hydromor Propensi Active Unknown - Uni vers phone ty to See comments 1-14 ity of adverse 00:00: [place] reaction 00 Medical s Branch Ibuprofe Propensi Active Anaphylaxis 2021-0 U nivers n ty to -14 ity of adverse 00:00: [place] reaction 00 Medical s Branch Levoflox Propensi Active Other - See 0 aggitate d Univers acin ty to comments 1-14 ity of adverse 00:00: [place] reaction 00 Medical s Branch Morphine Propensi Active Anaphylaxis 2021-0 U nivers ty to -14 ity of adverse 00:00: [place] reaction 00 Medical s Branch Shellfis Propensi Active Unknown - Uni vers h ty to See comments 1-14 ity of Derived adverse 00:00: [place] reaction 00 Medical s Branch HYDROMOR DRUG Active Unknown-Cmnt 0 Un anil PHONE INGREDI - ity of 00:00: [place] 00 Medical Branch IBUPROFE DRUG Active Anaphylaxis 0 Uni vers N INGREDI 1-14 ity of 00:00: [place] 00 Medical Branch LEVOFLOX DRUG Active Other-Cmnt 0 Univ ers ACIN INGREDI 1-14 ity of 00:00: [place] 00 Medical Branch MORPHINE DRUG Active Anaphylaxis 2021-0 Uni vers INGREDI 1-14 ity of 00:00: [place] 00 Medical Branch SHELLFIS DRUG Active Unknown-Cmnt 2021-0 Un anil H INGREDI 1-14 ity of DERIVED 00:00: [place] 00 Medical Branch Family History Family Member Diagnosis Comments Start Date Stop Date Source Natural father No Known Problem [facility] Natural mother No Known Problem [facility] Social History Social Habit Start Date Stop Date Quantity Comments Source Exposure to 2022-03-13 2022-03-23 Not sure [facility] SARS-CoV-2 (event) 00:00:00 12:19:00 Medica l Branch Tobacco use and 2021-10-07 2021-10-07 Never used [facility] exposure 00:00:00 00:00:00 [facility] Sex [birth year] [facility] 00:00:00 00:00:00 [facility] [place] Smoking Status Start Date Stop Date Source Never smoked tobacco [facility] [place] Medications Ordered Filled Start Stop Current Ordering Indication Dosage Frequency Signature Comments Components Source Medication Medication Date Date Medication? Clinician (SIG) Name Name sodium 2021- No PRN, Univers chloride 03-29 Starting ity of (NS) 15:57: 16:06 on Sun [place] injection 00 :24 22 at Medi jacy 1057, Branch Until Sun03/29/22 at 1106, Routine, Intra-op neomycin-po 2021- No PRN, Unive rs lymyxin-dex 03-29 Starting ity of amethasone 15:57: 16[place]06 [place] ([place]OL[place] 00 :24 03/29/22 at [facility] ical 3.5 1057, Branch mg/g-10,000 Until Sun unit/g-0.1 03/29/22 at % 1106, ophthalmic Routine, ointment Intra-op dexamethaso 2021- No PRN, Unive rs ne 03-29 Starting ity of (DECADRON 15:57: 16:06 on Sun [place] PHOSPHATE) 00 :24 03/29/22 at [facility] ical injection 1057, Branch Until Sun03/29/22 at 1106, Routine, Intra-op carbachoL 2021- No PRN, Univers (MIOSTAT) 03-29 Starting ity o f 0.01 % 15:56: 16:06 on [place] intraocular 00 :24 [place] injection 1056, Branch Until Sun03/29/22 at 1106, Routine, Intra-op EPINEPHrine 2021- No PRN, Unive rs 1:1,000 (1 03-29 Starting ity of mg/mL) 15:47: 16:06 on Sun [place] (ADRENALIN) 00 :24 03/29/22 [place] dical injection 1047, Branch Until Sun03/29/22 at 1106, Routine, Intra-op chondroitin 2021- No PRN, Unive rs sulf-sod 03-29 Starting ity of hyaluronate 15:47: 16:06 on Sun [place] (DUOVISC 00 :24 03/29/22 at Medic al VISCO 1047, Branch ELASTIC) Until Sun intraocular 03/29/22 at injection 1106, Routine, Intra-op ceFAZolin 2021- No PRN, Univers (ANCEF) 03-29 Starting ity of injection 15:47: 16:06 on Sun 00 :24 03/29/22 at [facility] 1047, Branch Until Sun03/29/22 at 1106, LIVIER, Intra-op balanced 2021- No PRN, Univers salt irrig 03-29 Starting ity of soln comb1 15:46: 16:06 [place] (BSS PLUS[place] 00 :24 03/29/22 at [facility] ical ophthalmic 1046, Branch solution Until Sun 500 mL bag 03/29/22 at 1106, Routine, Intra-op water for 2021- No PRN, Univers irrigation 03-29 Starting ity of irrigation 15:39: 16:06 [place] solution 00 :24 03/29/22 at Medic al 1039, Branch Until Sun03/29/22 at 1106, Routine, Intra-op Hyaluronida 2021- No PRN, Unive rs se, Human 03-29 Starting ity o f Recomb. 15:35: 16:06 on Sun [place] (HYLENEX) 00 :24 03/29/22 at [facility] jacy injection 1035, Branch Until Sun03/29/22 at 1106, Routine, Intra-op eye block 2021- No PRN, Univers syringe 11 03-29 Starting ity of mL 15:35: 16:06 on Sun 00 :24 03/29/22 at [facility] 1035, Branch Until Sun03/29/22 at 1106, Intra-op tropicamide 2021- No 1[drp] 1 Drop, Univers (MYDRIACYL) 03-29 Right Eye, i ty of 1 % 13:45: 13:48 ONCE, 1 [place] ophthalmic 00 :00 dose, On Medic al [...] :00 dose, On Medic al drops 1 Wed Branch Drop 03/29/22 at 0845, Routine, DSU [...] Routine, DSU Pre-op neomycin-po 2021- No PRN, Unive rs lymyxin-dex 03-15 Starting ity of amethasone 15:17: 15:34 [place] (MAXITROL) 00 :50 03/15/22 at Medi jacy 3.5 1017, Branch mg/g-10,000 Until Sun unit/g-0.1 03/15/22 at % 1034, ophthalmic Routine, ointment Intra-op carbachoL 2021- No PRN, Univers (MIOSTAT) 03-15 Starting ity o f 0.01 % 15:17: 15:34 on Sun [place] intraocular 00 :50 03/15/22 at Med ical injection 1017, Branch Until Sun03/15/22 at 1034, Routine, Intra-op dexamethaso 2021- No PRN, Unive rs ne 03-15 Starting ity of (DECADRON [...] Starting ity of (NS) 15:16: 15:34 on Sun [place] injection 00 :50 03/15/22 at Medic al 1016, Branch Until Sun03/15/22 at 1034, Routine, Intra-op chondroitin 2021- No PRN, Unive rs sulf-sod 03-15 Starting ity of hyaluronate 15:07: 15:34 on Sun [place] (DUOVISC 00 :50 03/15/22 at Medica l VISCO 1007, Branch ELASTIC) Until Sun intraocular 03/15/22 at injection 1034, Routine, Intra-op EPINEPHrine 2021- No PRN, Unive rs 1:1,000 (1 03-15 Starting ity of mg/mL) 15:04: 15:34 on Sun (ADRENALIN) 00 :50 22 at Med ical injection 1004, Branch Until Sun03/15/22 at 1034, Routine, Intra-op balanced 2021- No PRN, Univers salt irrig 03-15 Starting ity of soln comb1 15:04: 15:34 [place] (BSS PLUS) 00 :50 03/15/22 at [facility] ophthalmic 1004, Branch solution Until Sun 500 mL bag 03/15/22 at 1034, Routine, Intra-op water for 2021- No PRN, Univers irrigation 03-15 Starting ity of irrigation 14:58: 15:34 [place] solution 00 :50 03/15/22 at Medica l 0958, Branch Until Sun03/15/22 at 1034, Routine, Intra-op Hyaluronida 2021- No PRN, Unive rs se, Human 03-15 Starting ity o f Recomb. 14:55: 15:34 on Sun (HYLENEX) 00 :50 22 at Medic al injection 0955, Branch Until Sun03/15/22 at 1034, Routine, Intra-op eye block 2021- No PRN, Univers syringe 11 03-15 Starting ity of mL 14:54: 15:34 on Sun [place] 00 :50 22 at Medical 0954, Branch Until Sun03/15/22 at [...] 00 :00 dose, On Medi jacy ophthalmic 03/15/22 Bra nch drops 1 at 0815, Drop Routine, DSU Pre-op cyclopentol 2021- No 1[drp] 1 Drop, Univers ate 03-15 Left Eye, ity of (CYCLOGYL) 13:15: 13:37 ONCE, 1 [place] 1 % 00 :00 dose, On Medical ophthalmic Sun03/15/22 Bra nch drops 1 at 0815, Drop Routine, DSU Pre-op lactated 2021- No 1000mL at 42 [facility] rs ringers IV 03-15 mL/hr, ity of [...] 00 :00 dose, On Medi jacy ophthalmic 03/15/22 Bra nch drops 1 at 0815, Drop Routine, DSU Pre-op cyclopentol 2021- No 1[drp] 1 Drop, Univers ate 03-15 Left Eye, ity of (CYCLOGYL) 13:15: 13:37 ONCE, 1 [place] 1 % 00 :00 dose, On Medical ophthalmic 03/15/22 Bra nch drops 1 at 0815, Drop Routine, DSU Pre-op lactated 2021- No 1000mL at 42 Unive rs ringers IV 8 08-03 mL/hr, ity of infusion 13:15: 13:38 1,000 mL, [place] 1,000 mL 00 :00 IV Medical Infusion, Branch ONCE, 1 dose, On Sun03/15/22 at 0815, Routine, DSU Pre-op SUMAtriptan 2022-0 Yes 25mg Take 25 mg Univers 25 mg 7-18 by mouth ity of tablet 00:00: as needed. [place] [facility] SUMAtriptan 2022-0 Yes 25mg Take 25 mg Univers 25 mg 7-18 by mouth ity of tablet 00:00: as needed. [place] [facility] SUMAtriptan 2022-0 Yes 25mg Take 25 mg Univers 25 mg 7-18 by mouth ity of tablet 00:00: as needed. [place] [facility] SUMAtriptan 2022-0 Yes 25mg Take 25 mg Univers 25 mg 7-18 by mouth ity of tablet 00:00: as needed. [place] [facility] SUMAtriptan 2022-0 Yes 25mg Take 25 mg Univers 25 mg 7-18 by mouth ity of tablet 00:00: as needed. [place] [facility] SUMAtriptan 2022-0 Yes 25mg Take 25 mg Univers 25 mg 7-18 by mouth ity of tablet 00:00: as needed. [place] [facility] SUMAtriptan 2022-0 Yes 25mg Take 25 mg Univers 25 mg 7-18 by mouth ity of tablet 00:00: as needed. [place] [address] Medical Branch SUMAtriptan 2022-0 Yes 25mg Take 25 mg Univers 25 mg 7-18 by mouth ity of tablet 00:00: as needed. [place] [facility] SUMAtriptan 2022-0 Yes 25mg Take 25 mg Univers 25 mg 7-18 by mouth ity of tablet 00:00: as needed. [place] [address] Medical Branch clopidogreL 2022-0 Yes 75mg Take 75 mg Univers 75 mg 6-06 by mouth ity of tablet 00:00: in the [place] morning. Medical Branch clopidogreL 2022-0 Yes 75mg Take 75 mg Univers 75 mg 6-06 by mouth ity of tablet 00:00: in the [place] morning. Medical Branch clopidogreL 2022-0 Yes 75mg Take 75 mg Univers 75 mg 6-06 by mouth ity of tablet 00:00: in the [place] 00 morning. Medical Branch clopidogreL 2022-0 Yes 75mg Take 75 mg Univers 75 mg 6-06 by mouth ity of tablet 00:00: in the [place] 00 morning. Medical Branch clopidogreL 2022-0 Yes 75mg Take 75 mg Univers 75 mg 6-06 by mouth ity of tablet 00:00: in the [place] 00 morning. Medical Branch clopidogreL 2022-0 Yes 75mg Take 75 mg Univers 75 mg 6-06 by mouth ity of tablet 00:00: in the [place] 00 morning. Medical Branch clopidogreL 2022-0 Yes 75mg Take 75 mg Univers 75 mg 6-06 by mouth ity of tablet 00:00: in the [place] 00 morning. Medical Branch clopidogreL 2022-0 Yes 75mg Take 75 mg Univers 75 mg 6-06 by mouth ity of tablet 00:00: in the [place] 00 morning. Medical Branch clopidogreL 2022-0 Yes 75mg Take 75 mg Univers 75 mg 6-06 by mouth ity of tablet 00:00: in the [place] 00 morning. Medical Branch atorvastati 2022-0 Yes 40mg Take 40 mg Univers n 40 mg 5-25 by mouth ity of tablet 00:00: at [place] [address] bedtime. Medical Branch atorvastati 2022-0 Yes 40mg Take 40 mg Univers n 40 mg 5-25 by mouth ity of tablet 00:00: at [place] [address] bedtime. Medical Branch atorvastati 2022-0 Yes 40mg Take 40 mg Univers n 40 mg 5-25 by mouth ity of tablet 00:00: at [place] [address] bedtime. Medical Branch atorvastati 2022-0 Yes 40mg Take 40 mg Univers n 40 mg 5-25 by mouth ity of tablet 00:00: at [place] [address] bedtime. Medical Branch atorvastati 2022-0 Yes 40mg Take 40 mg Univers n 40 mg 5-25 by mouth ity of tablet 00:00: at [place] [address] bedtime. Medical Branch atorvastati 2022-0 Yes 40mg Take 40 mg Univers n 40 mg 5-25 by mouth ity of tablet 00:00: at [place] [address] bedtime. Medical Branch atorvastati 2022-0 Yes 40mg Take 40 mg Univers n 40 mg 5-25 by mouth ity of tablet 00:00: at [place] [address] bedtime. Medical Branch atorvastati 2022-0 Yes 40mg Take 40 mg Univers n 40 mg 5-25 by mouth ity of tablet 00:00: at [place] 00 bedtime. Medical Branch atorvastati 2021-0 Yes 40mg Take 40 mg Univers n 40 mg 5-25 by mouth ity of tablet 00:00: at [place] 00 bedtime. Medical Branch predniSONE 2021-0 Yes [id number] 20mg Take 1 Univers 20 mg 3-07 tablet by ity of tablet 00:00: mouth [place] 00 daily. Medical Branch diphenhydrA 2021-0 Yes [id number] 25mg Take 1 Univers MINE 3-07 capsule by ity of (BENADRYL) 00:00: mouth [place] 25 mg 00 every 6 Medical capsule (six) Branch hours as needed for Allergies. predniSONE 2021-0 Yes [id number] 20mg Take 1 Univers 20 mg 3-07 tablet by ity of tablet 00:00: mouth [place] 00 daily. Medical Branch diphenhydrA 2021-0 Yes [id number] 25mg Take 1 Univers MINE 3-07 capsule by ity of (BENADRYL) 00:00: mouth [place] 25 mg 00 every 6 Medical capsule (six) Branch hours as needed for Allergies. predniSONE 2021-0 Yes [id number] 20mg Take 1 Univers 20 mg 3-07 tablet by ity of tablet 00:00: mouth [place] 00 daily. Medical Branch diphenhydrA 2021-0 Yes [id number] 25mg Take 1 Univers MINE 3-07 capsule by ity of (BENADRYL) 00:00: mouth [place] 25 mg 00 every 6 Medical capsule (six) Branch hours as needed for Allergies. predniSONE 2021-0 Yes [id number] 20mg Take 1 Univers 20 mg 3-07 tablet by ity of tablet 00:00: mouth [place] 00 daily. Medical Branch diphenhydrA 2021-0 Yes [id number] 25mg Take 1 Univers MINE 3-07 capsule by ity of (BENADRYL) 00:00: mouth [place] 25 mg 00 every 6 Medical capsule (six) Branch hours as needed for Allergies. predniSONE 2021-0 2021- No [id number] 20mg Take 1 Univers 20 mg 3-07 08-03 tablet by ity of tablet 00:00: 00:00 mouth [place] 00 :00 daily. Medical Branch diphenhydrA 2021-0 2021- No [id number] 25mg Take 1 Univers MINE 10-17- capsule by ity of (BENADRYL) 00:00: 00:00 mouth [place] 25 mg 00 :00 every 6 Medical capsule (six) Branch hours as needed for Allergies. predniSONE 2021- No [id number] 20mg Take 1 Univers 20 mg 10-17- tablet by ity of tablet 00:00: 00:00 mouth [place] 00 :00 daily. Medical Branch diphenhydrA 2021- No [id number] 25mg Take 1 Univers MINE 10-17- capsule by ity of (BENADRYL) 00:00: 00:00 mouth [place] 25 mg 00 :00 every 6 Medical capsule (six) Branch hours as needed for Allergies. busPIRone Yes TWICE [facility] 2[facility]5 MG 2-24 [facility] Medical half tablet 00 Center LANTUS Yes Univers SOLOSTAR 1-08 ity of [...] Univers 10 mg 2-21 ity of 00:00: [address] metFORMIN 2020-08 Yes Univers 1,000 mg 2-21 ity of tablet 00:00: [address] busPIRone 2020-08 Yes Univers 7.5 mg 2-21 ity of tablet 00:00: [address] PARoxetine 2020-08 Yes Univers 40 mg 2-21 ity of tablet 00:00: [address] JARDIANCE 2020-08 Yes Univers 10 mg 2-21 ity of 00:00: [address] metFORMIN 2020-08 Yes Univers 1,000 mg 2-21 ity of tablet 00:00: [address] busPIRone 2020-08 Yes Univers 7.5 mg 2-21 ity of tablet 00:00: [address] PARoxetine 2020-08 Yes Univers 40 mg 2-21 ity of tablet 00:00: [address] JARDIANCE 2020-08 Yes 10mg Take 10 mg Un anil 10 mg 2-21 by mouth ity of 00:00: daily. [place] [facility] metFORMIN 2020-08 Yes 1000mg Take 1,000 Univers 1,000 mg 2-21 mg by ity of tablet 00:00: mouth in [place] the Medical morning Branch and 1,000 mg in the evening. Take with meals. busPIRone 2020-08 Yes 7.5mg Take 7.5 Uni vers 7.5 mg 2-21 mg by ity of tablet 00:00: mouth as [place] 00 needed. Medical Branch PARoxetine 2020-08 Yes 40mg Take 40 mg U nivers 40 mg 2-21 by mouth ity of tablet 00:00: at [place] [address] bedtime. Medical Branch JARDIANCE 2020-08 Yes 10mg Take 10 mg Un anil 10 mg 2-21 by mouth ity of 00:00: daily. [place] [address] Medical Branch metFORMIN 2020-08 Yes 1000mg Take 1,000 Univers 1,000 mg 2-21 mg by ity of tablet 00:00: mouth in [place] the Medical morning Branch and 1,000 mg in the evening. Take with meals. busPIRone 2020-08 Yes 7.5mg Take 7.5 Uni vers 7.5 mg 2-21 mg by ity of tablet 00:00: mouth as [place] [address] needed. Medical Branch PARoxetine 2020-08 Yes 40mg Take 40 mg U nivers 40 mg 2-21 by mouth ity of tablet 00:00: at [place] [address] bedtime. Medical Branch JARDIANCE 2020-08 Yes 10mg Take 10 mg Un anil 10 mg 2-21 by mouth ity of 00:00: daily. [place] [address] Medical Branch metFORMIN 2020-08 Yes 1000mg Take 1,000 Univers 1,000 mg 2-21 mg by ity of tablet 00:00: mouth in [place] [address] the Medical morning Branch and 1,000 mg in the evening. Take with meals. busPIRone 2020-08 Yes 7.5mg Take 7.5 Uni vers 7.5 mg 2-21 mg by ity of tablet 00:00: mouth as [place] [address] needed. Medical Branch PARoxetine 2020-08 Yes 40mg Take 40 mg U nivers 40 mg 2-21 by mouth ity of tablet 00:00: at [place] [address] bedtime. Medical Branch JARDIANCE 2020-08 Yes 10mg Take 10 mg Un anil 10 mg 2-21 by mouth ity of 00:00: daily. Medical Branch metFORMIN 2020-08 Yes 1000mg Take 1,000 Univers 1,000 mg 2-21 mg by ity of tablet 00:00: mouth in [place] [address] the Medical morning Branch and 1,000 mg in the evening. Take with meals. busPIRone 2020-08 Yes 7.5mg Take 7.5 Uni vers 7.5 mg 2-21 mg by ity of tablet 00:00: mouth as [place] [address] needed. Medical Branch PARoxetine 2020-08 Yes 40mg Take 40 mg U nivers 40 mg 2-21 by mouth ity of tablet 00:00: at [place] [address] bedtime. Medical Branch JARDIANCE 2020-08 Yes 10mg Take 10 mg Un anil 10 mg 2-21 by mouth ity of 00:00: daily. [place] [facility] metFORMIN 2020-08 Yes 1000mg Take 1,000 Univers 1,000 mg 2-21 mg by ity of tablet 00:00: mouth in [place] [address] the Medical morning Branch and 1,000 mg in the evening. Take with meals. busPIRone 2020-08 Yes 7.5mg Take 7.5 Uni vers 7.5 mg 2-21 mg by ity of tablet 00:00: mouth as [place] [address] needed. Medical Branch PARoxetine 2020-08 Yes 40mg Take 40 mg U nivers 40 mg 2-21 by mouth ity of tablet 00:00: at [place] [address] bedtime. Medical Branch JARDIANCE 2020-08 Yes 10mg Take 10 mg Un anil 10 mg 2-21 by mouth ity of 00:00: daily. [place] [facility] metFORMIN 2020-08 Yes 1000mg Take 1,000 Univers 1,000 mg 2-21 mg by ity of tablet 00:00: mouth in [place] [address] the Medical morning Branch and 1,000 mg in the evening. Take with meals. busPIRone 2020-08 Yes 7.5mg Take 7.5 Uni vers 7.5 mg 2-21 mg by ity of tablet 00:00: mouth as [place] [address] needed. Medical Branch PARoxetine 2020-08 Yes 40mg Take 40 mg U nivers 40 mg 2-21 by mouth ity of tablet 00:00: at [place] [address] bedtime. Medical Branch JARDIANCE 2020-08 Yes 10mg Take 10 mg Un anil 10 mg 2-21 by mouth ity of 00:00: daily. [place] [facility] metFORMIN 2020-08 Yes 1000mg Take 1,000 Univers 1,000 mg 2-21 mg by ity of tablet 00:00: mouth in [place] the Medical morning Branch and 1,000 mg in the evening. Take with meals. busPIRone 2020-08 Yes 7.5mg Take 7.5 Uni vers 7.5 mg 2-21 mg by ity of tablet 00:00: mouth as [place] 00 needed. Medical Branch PARoxetine 2020-08 Yes 40mg Take 40 mg U nivers 40 mg 2-21 by mouth ity of tablet 00:00: at [place] [address] bedtime. Medical Branch JARDIANCE 2020-08 Yes 10mg Take 10 mg Un anil 10 mg 2-21 by mouth ity of 00:00: daily. [place] [facility] metFORMIN 2020-08 Yes 1000mg Take 1,000 Univers 1,000 mg 2-21 mg by ity of tablet 00:00: mouth in [place] [address] the [facility] morning Branch and 1,000 mg in the evening. Take with meals. busPIRone 2020-08 Yes 7.5mg Take 7.5 Uni vers 7.5 mg 2-21 mg by ity of tablet 00:00: mouth as [place] [address] needed. Medical Branch PARoxetine 2020-08 Yes 40mg Take 40 mg U nivers 40 mg 2-21 by mouth ity of tablet 00:00: at [place] [address] bedtime. Medical Branch JARDIANCE 2020-08 Yes 10mg Take 10 mg Un anil 10 mg 2-21 by mouth ity of 00:00: daily. [place] [address] Medical Branch metFORMIN 2020-08 Yes 1000mg Take 1,000 Univers 1,000 mg 2-21 mg by ity of tablet 00:00: mouth in [place] [address] the [facility] morning Branch and 1,000 mg in the evening. Take with meals. busPIRone 2020-08 Yes 7.5mg Take 7.5 Uni vers 7.5 mg 2-21 mg by ity of tablet 00:00: mouth as [place] 00 needed. Medical Branch PARoxetine 2020-08 Yes 40mg Take 40 mg U nivers 40 mg 2-21 by mouth ity of tablet 00:00: at [place] [address] bedtime. Medical Branch donepeziL 2020-08 Yes Univers 10 mg 2-17 ity of tablet 00:00: [place] 00 Medical Branch donepeziL 2020-08 Yes Univers 10 mg 2-17 ity of tablet 00:00: [place] 00 Medical Branch donepeziL 2020-08 Yes 10mg Take 10 mg Un anil 10 mg 2-17 by mouth ity of tablet 00:00: at [place] [address] bedtime. Medical Branch donepeziL 2020-08 Yes 10mg Take 10 mg Un anil 10 mg 2-17 by mouth ity of tablet 00:00: at [place] [address] bedtime. Medical Branch donepeziL 2020-08 Yes 10mg Take 10 mg Un anil 10 mg 2-17 by mouth ity of tablet 00:00: at [place] [address] bedtime. Medical Branch donepeziL 2020-08 Yes 10mg Take 10 mg Un anil 10 mg 2-17 by mouth ity of tablet 00:00: at [place] [address] bedtime. Medical Branch donepeziL 2020-08 Yes 10mg Take 10 mg Un anil 10 mg 2-17 by mouth ity of tablet 00:00: at [place] [address] bedtime. Medical Branch donepeziL 2020-08 Yes 10mg Take 10 mg Un anil 10 mg 2-17 by mouth ity of tablet 00:00: at [place] [address] bedtime. Medical Branch donepeziL 2020-08 Yes 10mg Take 10 mg Un anil 10 mg 2-17 by mouth ity of tablet 00:00: at [place] [address] bedtime. Medical Branch donepeziL 2020-08 Yes 10mg Take 10 mg Un anil 10 mg 2-17 by mouth ity of tablet 00:00: at [place] [address] bedtime. Medical Branch donepeziL 2020-08 Yes 10mg Take 10 mg Un anil 10 mg 2-17 by mouth ity of tablet 00:00: at [place] [address] bedtime. Medical Branch HUMALOG 2020-08 Yes Univers KWIKPEN 1-27 ity of INSULIN 100 00:00: [place] unit/mL 00 Medical injection Branch tamsulosin 2020-08 Yes Univers 0.4 mg 24 1-27 ity of hr capsule 00:00: [place] 00 Medical Branch HUMALOG 2020-08 Yes Univers KWIKPEN 1-27 ity of INSULIN 100 00:00: [place] unit/mL 00 Medical injection Branch tamsulosin 2020-08 Yes Univers 0.4 mg 24 1-27 ity of hr capsule 00:00: [place] 00 Medical Branch HUMALOG 2020-08 Yes 6U [...] 2022-03-29 16:25:00 141 mm[Hg] Univer sity of pressure [place] [facility] Diastolic blood 2022-03-29 16:25:00 76 mm[Hg] Unive rsity of pressure [facility] Heart rate 2022-03-29 16:25:00 64 /min [facility] Respiratory rate 2022-03-29 16:25:00 15 /min Univ ersity [facility] Oxygen saturation in 2022-03-29 16:25:00 99 /min University of Arterial blood by [facility] Pulse oximetry Branch Body temperature 2022-03-29 16:05:00 36.61 Eneida [facility] Body height 2022-03-23 12:02:00 175 cm [facility] Body weight 2022-03-23 12:02:00 116.6 kg [facility] BMI 2022-03-23 12:02:00 38.07 kg/m2 [facility] Systolic blood 2022-03-29 13:41:00 151 mm[Hg] Univer sity of [facility] Branch Diastolic blood 2022-03-29 13:41:00 74 mm[Hg] Unive rsity of pressure [facility] Heart rate 2022-03-29 13:41:00 69 /min [facility] Body temperature 2022-03-29 13:41:00 36.5 Eneida Univ [facility] Respiratory rate 2022-03-29 13:41:00 18 /min Univ [facility] Oxygen saturation in 2022-03-29 13:41:00 98 /min University of Arterial blood by [place] Pulse oximetry Branch Body height 2022-03-23 12:02:00 175 cm [facility] Body weight 2022-03-23 12:02:00 116.6 kg [facility] BMI 2022-03-23 12:02:00 38.07 kg/m2 [facility] Systolic blood 2022-03-15 16:00:00 139 mm[Hg] Univer [facility]ity [facility] Diastolic blood 2022-03-15 16:00:00 66 mm[Hg] Unive rsity of [facility] Heart rate 2022-03-15 16:00:00 70 /min [facility] Body temperature 2022-03-15 16:00:00 36.33 Eneida Univ ersity of [facility] Oxygen saturation in 2022-03-15 16:00:00 99 /min University of Arterial blood by [place] [employer] jacy Pulse oximetry Branch Respiratory rate 2022-03-15 15:59:00 13 /min [facility] Body height 2022-03-01 18:11:00 175 cm [facility] Body weight 2022-03-01 18:11:00 116.6 kg [facility] BMI 2022-03-01 18:11:00 38.07 kg/m2 [facility] Systolic blood 2022-03-15 13:46:00 160 mm[Hg] Univer [facility]ity of [facility] Diastolic blood 2022-03-15 13:46:00 72 mm[Hg] [facility] Heart rate 2022-03-15 13:46:00 68 /min [facility] Body temperature 2022-03-15 13:46:00 36.28 Eneida [facility] Respiratory rate 2022-03-15 13:46:00 18 /min [facility] Oxygen saturation in 2022-03-15 13:46:00 97 /min University of Arterial blood by [place] [employer] jacy Pulse oximetry Branch Body height 2022-03-01 18:11:00 175 cm [facility] Body weight 2022-03-01 18:11:00 116.6 kg [facility] BMI 2022-03-01 18:11:00 38.07 kg/m2 [facility] Procedures Procedure Date / Time Performing Source Performed Clinician AUTHORIZATION FOR RELEASE OF 2022-05-01 Doctor Unassigned, [facility] PHI 05:01:00 [facility] PHACOEMULSIFICATION OF 2022-03-29 [facility] WITH [facility]TRAOCULAR 15:18:00 Medica l Branch LENS IMPLANT POCT GLUCOSE (AUTOMATED) 2022-03-29 Dante Archuleta [facility] 13:47:00 Medical Branch POCT GLUCOSE (AUTOMATED) 2022-03-29 Dante Archuleta [facility] 13:47:00 Medical Branch CONSENT/REFUSAL FOR DIAGNOSIS 2022-03-27 Doctor Unassigned, [facility] AND TREATMENT 21:06:25 [facility] CONSENT/REFUSAL FOR DIAGNOSIS 2022-03-27 Doctor Unassigned, [facility] AND TREATMENT 21:06:25 [facility] ASSIGNMENT OF BENEFITS 2022-03-27 Doctor Unassmarcos, [facility] 21:05:55 [facility] ASSIGNMENT OF BENEFITS 2022-03-27 Doctor Unassmarcos [facility] 21:05:55 [facility] PHACOEMULSIFICATION OF 2022-03-15 Dante Archuleta [facility] CATARACT WITH INTRAOCULAR 14:45:00 Medica l Branch LENS IMPLANT POCT GLUCOSE(AGE >30DAYS) 2022-03-15 Stiven Cash [facility] 13:30:00 Medical Branch POCT GLUCOSE(AGE >30DAYS) 2022-03-15 Stiven Cash [facility] 13:30:00 Medical Branch POCT GLUCOSE (AUTOMATED) 2022-03-15 Dante Archuleta [facility] 13:23:00 Medical Branch POCT GLUCOSE (AUTOMATED) 2022-03-15 Dante Archuleta [facility] 13:23:00 Medical Branch ASSIGNMENT OF BENEFITS 2022-03-13 Doctor Unassmarcos [facility] 21:10:58 [facility] PHYSICIAN ORDERS 2022-03-06 [facility] 05:01:00 [facility] Plan of Care Planned Activity Planned Date Details Comments Source Future Scheduled 2022-04-13 INFLUENZA VACCINE (#1) [facility] 00:00:00 [code = INFLUENZA Medical Ce nter VACCINE (#1)] Future Scheduled 2021-08-[address] [facility] 00:00:00 (12+) [code = Medical Center DEPRESSION SCREENING (12+)] Future Scheduled 2021-08-13 FALLS RISK SCREENING [facility] 00:00:00 [code = FALLS RISK Medical C enter SCREENING] Future Scheduled 2021-08-13 Medicare IPPE (WELCOME [facility] 00:00:00 TO MEDICARE) [code = Medical Center Medicare IPPE (WELCOME TO MEDICARE)] Future Scheduled 2016 PNEUMOCOCCAL 65+ YRS ([address] [facility] 00:00:00 - PCV) [code = Medical Cente r PNEUMOCOCCAL 65+ YRS (1 - PCV)] Future Scheduled 2001 SHINGLES VACCINES ([address] [facility] 00:00:00 2) [code = SHINGLES Medical Center VACCINES (1 of 2)] Future Scheduled 1970 DTAP/TDAP/TD VACCINES [facility] 00:00:00 (1 - Tdap) [code = Medical C enter DTAP/TDAP/TD VACCINES (1 - Tdap)] Future Scheduled 1969 HEPATITIS C SCREENING [facility] 00:00:00 [code = HEPATITIS C Medical Center SCREENING] Future Scheduled [address] [facility] 00:00:00 Counseling and Medical Cente r Screening (12+) [code = Tobacco Cessation Counseling and Screening (12+)] Future Scheduled 1950 COVID-19 VACCINE (#1) [facility] 00:00:00 [code = COVID-[address] VACCINE (#1)] Future Scheduled 1951 CT Colonography (combo) [facility] 00:00:00 [code = CT Colonography [facility] (combo)] Future Scheduled 1950 Screening for malignant [facility] 00:00:00 neoplasm of colon Medical Ce nter (procedure) [code = 776785048] Future Scheduled 1950 Screening for malignant [facility] 00:00:00 neoplasm of colon Medical Ce nter (procedure) [code = 401504633] Future Scheduled 1951 Screening for malignant [facility] 00:00:00 neoplasm of colon Medical Ce nter (procedure) [code = 149664976] Future Scheduled 1950 Screening for malignant [facility] 00:00:00 neoplasm of colon Medical Ce nter (procedure) [code = 034315472] Future Scheduled 1950 Sigmoidoscopy [code = [facility] 00:[facility]:00 Sigmoidoscopy] Medical Cente r Encounters Start End Encounter Admission Attending Care Care Encounter Source Date/Time Date/Time Type Type Clinicians Facility Department ID 2021-10-07 Inpatient UR ODETTE FRANCISCO [facility] Neurology [id number] 14:48:54 [facility] 2021-10-07 Hospital Odette Francisco [facility] [id number] [facility] 00:[facility]00 Encounter Shaq [facility] 2021-09-29 [id number] Univers 15:56:[address] [facility] 2022-05-01 2022-05-01 Orders Doctor PHU 1.2.840.114 [id number] Univers 00:00:00 00:00:00 Only Unassigned, ANEL 350.1.13.10 ity of [place] [facility] 4.2.7.2.686 Jez as [phone] [address] 2022-03-29 2022-03-29 [facility] [id number] Univers 08:33:00 11:33:[address] [facility] 2022-03-29 2022-03-29 [facility] [id number] Univers 08:33:00 11:33:00 Encounter Dante DONG 350.1.13.10 ity of [facility] [place] [id number] [facility] 071 Branch 2022-03-29 2022-03-29 Surgery [facility] 1.2.840.114 [id number] Univers 09:32:00 10:05:00 Dante DONG 350.1.13.10 ity of [place] [id number] [facility] 020 Branch 2022-03-27 2022-03-27 Laboratory Only, Adc Test [facility] 1.2.840. 114 [id number] Univers 16:15:00 16:30:00 Only Dante Archuleta 350.1.13.1 0 ity of [place] [id number] [facility] 353 Branch 2022-03-27 2022-03-27 Outpatient R [facility] [id number] Univers 16:15:00 16:15:[address] [facility] 2022-03-15 2022-03-15 Outpatient R [facility] OPH [id number] Univers 08:04:00 11:05:[address] [facility] 2022-03-15 2022-03-15 Hospital [facility] [id number] Univers 08:04:00 11:05:00 Encounter Dante Busch LETITIA 350.1.13.10 ity of [place] [id number] [facility] 020 Branch 2022-03-15 2022-03-15 Surgery [facility] 1.2.840.114 [id number] Univers 08:58:00 09:31:00 Dante Busch LETITIA 350.1.13.10 ity of [place] [id number] [facility] 020 Branch 2022-03-13 2022-03-13 Laboratory Only, Adc Test [facility] 1.2.840. 114 [id number] Univers 13:30:00 13:45:00 Only Dante Archuleta 350.1.13.1 0 ity of [place] [id number] [facility] 353 Branch 2022-03-13 2022-03-13 Outpatient R [facility] [id number] Univers 13:30:00 13:30:[address] [facility] 2022-03-13 2022-03-13 Orders Doctor BAY 1.2.840.114 [id number] Univers 00:00:00 00:00:00 Only Unassigned, ANEL 350.1.13.10 ity of [place] HOSPITAL 4.2.7.2.686 Jez as [id number] [facility] 009 Branch 2022-03-06 2022-03-06 Retail Consultant Pob, Adc Lab Main [facility] 1.2.8 40.114 [id number] Univers 15:30:00 15:45:00 Visit Dante Archuleta 350.1.13.1 0 ity of [place] [id number] [place] [facility] 353 Branch BUILDING 2022-03-06 2022-03-06 Outpatient R GEREMIAS [facility] [id number] Univers 15:30:00 15:30:00 DANTE [facility] 2022-03-06 2022-03-06 Orders Doctor PHU 1.2.840.114 [id number] Univers 00:00:00 00:00:00 Only Unassigned, ANEL 350.1.13.10 ity of [place] HOSPITAL 4.2.7.2.686 Jez as [id number] [place] [address] Branch 2022-01-05 2022-01-05 Telephone Sergio Rodriguez [facility] 1..840.114 [id number] Univers 00:00:00 00:00:00 [facility] 350.1.13.10 it y of [place] [id number] [place] [address] Branch OFFICE BUILDING 2021-11-22 2021-11-22 Outpatient R ROSS [facility] [id number] Univers 08:00:00 23:59:00 ROSE [facility] 2021-11-22 2021-11-22 Hospital Rose Hector [facility] 1.2.84 0.114 [id number] Univers 07:32:55 23:59:00 Encounter Sergio Rodriguez [facility] 350.1.13. 10 ity of Caity Bernabe [place] 4.2.7.2.686 [place] Jazzmine Alex [place]OL[place] [phone] [facility] 803 Branch ([facility]) 2021-11-22 2021-11-22 Retail Consultant Lab, [facility] 1.2.840.114 [id number] Univers 07:15:00 07:30:00 Visit Mando Goodman HEALTH 350.1.13.10 ity of [place] [id number] [address] ([facility]) 2021-11-21 2021-11-21 Outpatient Cedrick LOUIE [facility] [id number] Univers 09:00:00 09:00:[facility] 2021-11-21 2021-11-21 Outpatient Cedrick LOUIE [facility] [id number] Univers 09:00:00 09:00:00 [facility] 2021-10-28 2021-10-28 Orders Doctor PHU 1.2.840.114 [id number] Univers 00:00:00 00:00:00 Only Unassigned, ANEL 350.1.13.10 ity of [place] [facility] 4.2.7.2.686 Jez as [id number] [address] 2021-10-24 2021-10-24 Outpatient Cedrick BENOIT [facility] [id number] Univers 14:15:00 14:15:[address] [facility] 2021-10-24 2021-10-24 Outpatient Cedrick BENOIT [facility] [id number] Univers 14:15:00 14:15:00 SHABBIR [facility] 2021-10-17 2021-10-17 Office Sergio Rodriguez [facility] 1.2.840.114 [id number] Univers 09:00:00 09:30:00 Visit [facility] 350.1.13.10 it [place] [id number] [address] OFFICE BUILDING 2021-10-17 2021-10-17 Outpatient R SERGIO RODRIGUEZ [facility] [id number] Univers 09:00:00 09:00:[address] [facility] 2021-10-10 2021-10-10 Telephone Sergio Rodriguez [facility] 1.2.840.114 [id number] Univers 00:00:00 00:00:00 [facility] 350.1.13.10 it [place] [id number] [address] OFFICE BUILDING 2021-10-03 2021-10-03 Outpatient Cedrick ARCHULETA [facility] [id number] Univers 15:15:00 15:15:00 DANTE [facility] 2021-09-05 2021-09-05 Malaika Lambmsith [facility] 1.2.840.114 [id number] Univers 00:00:00 00:00:00 [facility] 350.1.13.10 it y of [place] 4.2.7.2.686 Jez as CECILY?BLEA [id number] [facility] 044 [facility] 2021-08-27 2021-08-27 Telephone PHU [place] 1.2.840.114 [id number] Univers 00:00:00 00:00:00 Barbara TAM 350.1.13.10 it y of [facility] 4.2.7.2.686 Jez as [id number] [address] 2021-08-26 2021-08-26 [facility] [id number] Univers 11:00:00 11:50:53 [facility] 2021-08-26 2021-08-26 Urgent GigiAc [facility] 1.2.840.114 [id number] Univers 11:00:00 11:20:00 Eliazar Agrawal [facility] 350.1.13.10 ity of [place] 4.2.7.2.686 Jez as CECILY?BLEA [id number] [facility] 370 [facility] Results Test Description Test Time Test Comments Results Result Comments Source POCT GLUCOSE (AUTOMATED) 2022-03-29 13:50:06 Test Item Value Reference Range Interpretation Comme nts POCT GLU (test code = 0871170179) 230 mg/dL 70-110 H Lab Interpretation (test code = 34898-4) Abnormal [facility] GLUCOSE (AUTOMATED)2022-03-29 13:50:06 Test Item Value Reference Range Interpretation Comments POCT GLU (test code = 5914477434) 230 mg/dL 70-110 H Lab Interpretation (test code = Abnormal 98536-4) [facility] GLUCOSE (AUTOMATED)2022-03-15 13:26:07 Test Item Value Reference Range Interpretation Comments POCT GLU (test code = 0251313651) 270 mg/dL 70-110 H Lab Interpretation (test code = Abnormal 44657-7) [facility] GLUCOSE (AUTOMATED)2022-03-15 13:26:07 Test Item Value Reference Range Interpretation Comments POCT GLU (test code = 3685945871) 270 mg/dL 70-110 H Lab Interpretation (test code = Abnormal 18427-8) [facility] [id number] 00:00:00 Test Item Value Reference Range Interpretation Comments POCT Glu (age>30days) (test code = 270 mg/dL 70-110 A 3342) Lab Interpretation (test code = Abnormal 56443-5) [facility] [id number] 00:00:00 Test Item Value Reference Range Interpretation Comments POCT Glu (age>30days) (test code = 270 mg/dL 70-110 A 3342) Lab Interpretation (test code = Abnormal 83699-0) [facility] [place]
[2022-07-03] MEDS ORDERED: DICYCLOMINE HCL 20 MG/2 ML AMP IM ONE (19:26)
[2022-07-03 19:41] LABS: Absolute Lymphocytes (CBC) 1.1 K/uL (0.7-4.9); Hematocrit 32.8 % (39.6-49.0); MCV 85.6 fL (80-100); RBC Red Blood Cell Count 3.83 M/uL (4.33-5.43)
[2022-07-03 19:53] LABS: Albumin 3.4 g/dL (3.4-5.0); Bilirubin Total 0.7 mg/dL (0.2-1.0); Potassium 4.8 mmol/L (3.5-5.1); Protein, Total 6.8 g/dL (6.4-8.2)
[2022-07-03 19:56] LABS: Urine Blood Negative (Negative); Urine Glucose 3+ (Negative); Urine Protein Negative (Negative)
--- NOTE | 2022-07-03 20:33 | RAD REPORT ---
EXAM DESCRIPTION: CT - Abdomen Pelvis Wo Contrast - 07/03/2022 8:22 pm CLINICAL HISTORY: Abdominal pain. right sided abdominal COMPARISON: No comparisons TECHNIQUE: CT imaging of the abdomen and pelvis was performed without contrast. Solid organ, bowel a nd vascular assessment is limited due to lack of IV and oral contrast. All CT scans are performed using dose optimization technique as appropriate and may include automated exposure control or mA/KV adjustment according to patient size. FINDINGS: The lower lung chapman are clear. The liver demonstrates a mild nodular contour suggesting mild cirrhosis. Spleen, pancreas, adrenal gl ands and kidneys are within normal limits for a limited non-contrast examination.Cholelithiasis. No bowel obstruction, free air, free fluid or abscess. Sigmoid diverticulosis coli is present without diverticulitis. Nonvisualized appendix. Bilateral total hip arthroplasty.Small fat containing bilateral inguinal hernias. IMPRESSION: Cholelithiasis. Mild liver cirrhosis. Sigmoid diverticulosis coli without diverticulitis. A limited non-contrast examination was performed as detailed.
--- NOTE | 2022-07-03 20:49 | ER ---
Nurse's Notes [facility] Name: Marcelino Mccall Age: 72 yrs Sex: Male : 1950 Arrival Date: 07/03/2022 Time: 17:12 Bed 13 Private MD: Abraham Trejo V Diagnosis: Lower abdominal pain, unspecified Presentation: 07/03 17:30 Chief complaint: Patient states: having abdominal pain and back pain x2 weeks getting iw worse; allergic to pain meds so havent taken anything. Was at 's office and he told us to come here to make sure im not having a emergency, Pain worsens when I lay down but not really after eating. Coronavirus screen: Vaccine status: Patient reports being unvaccinated. Client denies travel out of the [place] in the last 14 days. Ebola Screen: Patient negative for fever greater than or equal to 101.5 degrees Fahrenheit, and additional compatible Ebola Virus Disease symptoms Patient denies exposure to infectious person. Patient denies travel to an Ebola-affected area in the 21 days before illness onset. Initial Sepsis Screen: Does the patient meet any 2 criteria? No. Patient's initial sepsis screen is negative. Does the patient have a suspected source of infection? No. Patient's initial sepsis screen is negative. Risk Assessment: Do you want to hurt yourself or someone else? Patient reports no desire to harm self or others. Onset of symptoms was June 13, 2022. 17:30 Method Of Arrival: Ambulatory iw 17:30 Acuity: SUZI 3 iw Triage Assessment: 17:33 General: Appears uncomfortable, obese, well groomed, well developed, well nourished, iw Behavior is calm, cooperative, appropriate for age. Pain: Complains of pain in back and abdomen. GI: Reports lower abdominal pain, diarrhea. Historical: - Allergies: 17:32 Dilaudid; iw 17:32 Ibuprofen; iw 17:32 Iodine; iw 17:32 Levaquin; iw 17:32 Morphine; iw 17:32 SHELLFISH; iw - PMHx: 17:33 liver disease; stroke 2020; balance deficits; Diabetes mellitus; Hypercholesterolemia; iw - Immunization history:: Adult Immunizations up to date. - Social history:: Smoking status: Patient/guardian denies using tobacco, the patient reports quitting approximately 10 years ago. Screenin:49 Abuse screen: Denies threats or abuse. Nutritional screening: No deficits noted. tw2 Tuberculosis screening: No symptoms or risk factors identified. Fall Risk Secondary diagnosis (15 points) impaired mobility. Assessment: 19:26 General: Appears uncomfortable, Behavior is calm, cooperative, appropriate for age. aa9 Pain: Complains of pain in abdomen Pain currently is 7 out of 10 on a pain scale. Quality of pain is described as sharp, Is intermittent. Neuro: Level of Consciousness is awake, alert, obeys commands, Oriented to person, place, time, situation. Respiratory: Airway is patent Trachea midline Respiratory effort is even, unlabored. GI: Reports diarrhea, Patient currently denies vomiting. : No signs and/or symptoms were reported regarding the genitourinary system. Derm: Skin is intact, with poor turgor. Vital Signs: 17:30 BP 154 / 70; Pulse 65; Resp 18; Temp 97.4; Pulse Ox 100% ; Weight 114.31 kg; Height 5 iw ft. 9 in. (175.26 cm); Pain 8/10; 19:30 BP 128 / 77; Pulse 59; Resp 17 S; Pulse Ox 99% on R/A; aa9 17:30 Body Mass Index 37.21 (114.31 kg, 175.26 cm) iw ED Course: 17:12 Patient arrived in ED. rg4 17:12 Abraham Trejo MD is Private Physician. rg4 17:32 Triage completed. iw 17:33 Arm band placed on right wrist. iw 17:35 Bed in low position. Call light in reach. Adult w/ patient. tw2 18:56 Gabriel Sandoval PA is PHCP. jmm 18:56 Jam Pinto MD is Attending Physician. jmm 19:08 Kimber Oconnell, RADHA is Primary Nurse. aa9 19:20 Missed attempt(s): 20 gauge in right forearm. Bleeding controlled, band aid applied, aa9 catheter tip intact. 19:22 Inserted saline lock: 20 gauge in left antecubital area, using aseptic technique. Blood aa9 collected. 19:24 CBC with Diff Sent. aa9 19:24 CMP Sent. aa9 19:24 Lipase Sent. aa9 20:24 CT Abd/Pelvis - Without Contrast In Process Unspecified. EDMS 20:49 Abraham Trejo MD is Referral Physician. m 21:31 No provider procedures requiring assistance completed. IV discontinued, intact, aa9 bleeding controlled, No redness/swelling at site. Pressure dressing applied. Administered Medications: 19:56 Drug: Bentyl (dicyclomine) 20 mg Route: IM; Site: left deltoid; aa9 Medication: 18:49 VIS not applicable for this client. tw2 Outcome: 20:49 Discharge ordered by . usham 21:31 Discharged to home ambulatory, with family. aa9 21:31 Condition: stable 21:31 Discharge instructions given to patient, family, Instructed on discharge instructions, follow up and referral plans. medication usage, Demonstrated understanding of instructions, follow-up care, medications, Prescriptions given X 2. 21:31 Patient left the ED. aa9 Signatures: Dispatcher [employer] EDMS Gabriel Sandoval PA PA jmm Williams, Irene, RN Jolene Espinal RN RADHA tw2 Azul Davis 4 Kimber Oconnell, RN RN aa9 Corrections: (The following items were deleted from the chart) 17:35 17:32 PMHx: diabetes mellitus; iw iw 17:35 17:32 PMHx: Liver disease; iw iw 17:35 17:32 PSHx: Appendectomy; iw iw 17:35 17:32 PSHx: hip replacement; iw iw 17:35 17:32 PSHx: b/l knee replacement; iw iw 17:35 17:32 PSHx: b/l shoulder replacement; iw iw
--- NOTE | 2022-07-03 20:50 | EDPHYS ---
Physician Documentation [facility] Name: Marcelino Mccall Age: 72 yrs Sex: Male : 1950 Arrival Date: 07/03/2022 Time: 17:12 Bed 13 Private MD: Abraham Trejo V ED Physician Jam Pinto HPI: 07/03 18:56 This 72 yrs old Male presents to ER via Ambulatory with complaints of Abdominal Pain, jmm Back Pain. 18:56 The patient presents with abdominal pain. Onset: The symptoms/episode began/occurred jmm gradually. 20:07 The symptoms do not radiate. Associated signs and symptoms: Pertinent positives:. The jmm symptoms are described as achy. Is a 72-year-old male with history of diabetes mellitus, liver cirrhosis that presents emerged part with complaints of right lower abdominal pain pain approximately 2 weeks ago. Denies vomiting but states having some nausea. Denies diarrhea.. Historical: - Allergies: 17:32 Dilaudid; iw 17:32 Ibuprofen; iw 17:32 Iodine; iw 17:32 Levaquin; iw 17:32 Morphine; iw 17:32 SHELLFISH; iw - PMHx: 17:33 liver disease; stroke 2020; balance deficits; Diabetes mellitus; Hypercholesterolemia; iw - Immunization history:: Adult Immunizations up to date. - Social history:: Smoking status: Patient/guardian denies using tobacco, the patient reports quitting approximately 10 years ago. ROS: 20:07 Constitutional: Negative for fever, chills, and weight loss, Cardiovascular: Negative jmm for chest pain, palpitations, and edema, Respiratory: Negative for shortness of breath, cough, wheezing, and pleuritic chest pain. 20:07 Abdomen/GI: Positive for abdominal pain. 20:07 All other systems are negative. Exam: 20:07 Constitutional: This is a well developed, well nourished patient who is awake, alert, jmm and in no acute distress. Head/Face: atraumatic. Eyes: EOMI, no conjunctival erythema appreciated ENT: Moist Mucus Membranes Neck: Trachea midline, Supple Chest/axilla: Normal chest wall appearance and motion. Cardiovascular: Regular rate and rhythm. No edema appreciated Respiratory: Normal respirations, no respiratory distress appreciated 20:07 Back: Normal ROM Skin: General appearance color normal MS/ Extremity: Moves all extremities, no obvious deformities appreciated, no edema noted to the lower extremities Neuro: Awake and alert Psych: Behavior is normal, Mood is normal, Patient is cooperative and pleasant 20:07 Abdomen/GI: Inspection: abdomen appears normal, Bowel sounds: normal, Palpation: soft, mild abdominal tenderness, in the right lower quadrant. Vital Signs: 17:30 BP 154 / 70; Pulse 65; Resp 18; Temp 97.4; Pulse Ox 100% ; Weight 114.31 kg; Height 5 iw ft. 9 in. (175.26 cm); Pain 8/10; 19:30 BP 128 / 77; Pulse 59; Resp 17 S; Pulse Ox 99% on R/A; aa9 17:30 Body Mass Index 37.21 (114.31 kg, 175.26 cm) iw MDM: 18:56 Patient medically screened. [facility] 20:44 Data reviewed: vital signs, nurses notes. Counseling: I had a detailed discussion with [facility] the patient and/or guardian regarding: the historical points, exam findings, and any diagnostic results supporting the discharge/admit diagnosis, lab results, radiology results, the need for outpatient follow up, to return to the emergency department if symptoms worsen or persist or if there are any questions or concerns that arise at home. ED course: Patient is alert and non toxic in appearance in the ED. CT negative. Advised to follow up with pcp/gi and otherwise given strict return precautions. Patient understood and agrees with the plan of care. . 07/03 18:57 Order name: CBC with Diff; Complete Time: 19:45 [facility] 07/03 18:57 Order name: CMP; Complete Time: 19:54 [facility] 07/03 18:57 Order name: Lipase; Complete Time: 19:54 [facility] 07/03 18:57 Order name: CT Abd/Pelvis - Without Contrast; Complete Time: 20:41 [facility] 07/03 19:57 Order name: Urine Dipstick-Ancillary; Complete Time: 20:02 [facility] 07/03 18:57 Order name: IV Saline Lock; Complete Time: 19:24 [facility] 07/03 18:57 Order name: Labs collected and sent; Complete Time: 19:24 [facility] 07/03 19:00 Order name: Urine Dipstick-Ancillary (obtain specimen); Complete Time: 19:56 [facility] Administered Medications: 19:56 Drug: Bentyl (dicyclomine) 20 mg Route: IM; Site: left deltoid; aa9 Disposition: 07/04 07:32 Co-signature as Attending Physician, Jma Pinto MD I agree with the assessment and rt plan of care. Disposition Summary: 07/03/22 20:49 Discharge Ordered Location: Home [facility] Condition: Stable jmm Diagnosis - Lower abdominal pain, unspecified jmm Followup: [facility] - With: Abraham Trejo MD - When: 1 - 2 days - Reason: Recheck today's complaints, Continuance of care, Re-evaluation by your physician Discharge Instructions: - Discharge Summary Sheet jm - Abdominal Pain, Adult [facility] Forms: - Medication Reconciliation Form [facility] - Thank You Letter [facility] - Antibiotic Education [facility] - Prescription Opioid Use [facility] Prescriptions: - dicyclomine 20 mg Oral Tablet - take 1 tablet by ORAL route 3 times per day; 30 tablet; Refills: 0, Product [facility] Selection Permitted - Pepcid 20 mg Oral Tablet - take 1 tablet by ORAL route every 12 hours for 10 days; 20 tablet; Refills: 0, jm Product Selection Permitted Signatures: Dispatcher [employer] EDMS Gabriel Sandoval PA PA jmm Williams, Irene, RN RN iw Kimber Oconnell RN RN aa9 Jam Pinto MD MD rt Corrections: (The following items were deleted from the chart) 07/03 17:35 17:32 PMHx: diabetes mellitus; [facility] 17:35 17:32 PMHx: Liver disease; [facility] 17:35 17:32 PSHx: Appendectomy; [facility] 17:35 17:32 PSHx: hip replacement; [facility] 17:35 17:32 PSHx: b/l knee replacement; [facility] 17:35 17:32 PSHx: b/l shoulder replacement; [facility]
[2022-07-03 22:13] VITALS: TEMP 97.4
[2022-07-03 22:15] VITALS: BP 128/77; O2SAT 99
== END 2022-07-03 21:31 | disposition home or self-care (01) ==
LOC: ER 17:08
DX: R10.30 Lower abdominal pain, unspecified (principal); R19.7 Diarrhea, unspecified; Z88.1 Allergy status to other antibiotic agents; Z88.5 Allergy status to narcotic agent; Z88.6 Allergy status to analgesic agent; Z91.013 Allergy to seafood; Z91.048 Other nonmedicinal substance allergy status
CPT/HCPCS: 85025; 36415; 81003; 83690; 80053; 74176; J0500; 96372; 99284

== ENCOUNTER 2022-09-17 16:19 | Emergency (ER) | payer OTHER ==
--- OUTSIDE RECORDS SUMMARY | 2022-09-17 16:23 | XMS REPORT | Continuity of Care Document ---
:1950 Author Organization [facility] t Address [address] [place] [address] Care Team Providers Name Role Phone Abraham Weller Primary Care Physician Odette Francisco MD Attending Clinician DANTE ARCHULETA Attending Clinician Unavailable Doctor Unassigned, [place] Attending Clinician Unavailable Dante Archuleta MD Attending [...] Clinician Unavailable Ac Joshi MD Attending Clinician Tracie GARCIA, Barbara Attending Clinician Unavailable LITA AGRAWAL Attending Clinician Unavailable King GEENA MD, Ac Henry Attending Clinician Lita Tang Attending Clinician ODETTE FRANCISCO Admitting Clinician Unavailable DANTE ARCHULETA Admitting Clinician Unavailable Dante Archuleta MD Admitting Clinician Payers Payer Name Policy Type Policy Number Effective Date Expiration Date Jaylin AUGUSTINE [id number] 2021 00:00:00 Problems Condition Condition Condition Status [...] 00 Medica l ng s Branch Products HYDROMOR Allergy Active High Hives 2021-[address] [facility] IBUPROFE Allergy Active High Hives 2021-[address] [facility] IODINE Allergy Active High Hives 2021-[address] [facility] LEVOFLOX Allergy Active High Hives 2021-[address] [facility] ACIN [facility] Hydromor Drug Active Hives 2021-[address] [facility] phone Allergy 2[facility] Ibuprofe Drug Active Hives 2-[address] [facility] Allergy 2[facility]24 [facility] Iodine Drug Active Hives 2021-[address] [facility] Levoflox Drug Active Hives 2-[address] [facility] acin Allergy 2-24 [facility] 00:[facility]: [...] Active Unknown-Cmnt 2021-0 Un anil PHONE INGREDI -14 ity of 00:00: [place] 00 [...] Date Source Natural father No Known Problem [facility] Natural mother No Known Problem [facility] Social History Social Habit Start Date Stop Date Quantity Comments Source Exposure to 2022-03-13 2022-03-23 Not sure [facility] SARS-CoV-2 (event) 00:00:00 12:19:00 Medica l Branch Tobacco use and 2021-10-07 2021-10-[address] [facility] exposure 00:00:00 00:00:00 [facility] Sex Assigned At [address] [facility] 00:00[facility]00 [facility] Smoking Status Start Date Stop Date Source Never smoked tobacco [facility] Medications Ordered Filled Start Stop Current Ordering Indication Dosage Frequency Signature Comments Components Source Medication Medication Date Date Medication? Clinician (SIG) Name Name sodium 2021- No PRN, Univers chloride 03-29 Starting ity of (NS) 15:57: 16:06 on Sun [place] injection 00 :24 03/29/22 at Medi jacy 1057, Branch Until Sun03/29/22 at 1106, Routine, Intra-op neomycin-po 2021- No PRN, Unive rs lymyxin-dex 03-29 Starting ity of amethasone 15:57: 16[place]06 [place] ([place]OL[place] 00 :24 03/29/22 at [facility] ical 3.5 1057, Branch mg/g-10,000 Until Sun unit/g-0.1 03/29/22 at % 1106, ophthalmic Routine, ointment Intra-op dexamethaso 2021- No PRN, Unive rs ne 03-29 Starting ity of (DECADRON 15:57: 16:06 on Sun [place] PHOSPHATE) 00 :24 03/29/22 at [facility] ical injection 1057, Branch Until Sun03/29/22 at 1106, Routine, Intra-op carbachoL 2021- No PRN, Univers (MIOSTAT) 03-29 Starting ity o f 0.01 % 15:56: 16:06 on Sun [place] intraocular 00 :24 03/29/22 at Al dical injection 1056, Branch Until Sun03/29/22 at 1106, Routine, Intra-op EPINEPHrine 2021- No PRN, Unive rs 1:1,000 (1 03-29 Starting ity of mg/mL) 15:47: 16:06 on Sun [place] (ADRENALIN) 00 :24 03/29/22 at Al dical injection 1047, Branch Until Sun03/29/22 at 1106, Routine, Intra-op chondroitin 2021- No PRN, Unive rs sulf-sod 03-29 Starting ity of hyaluronate 15:47: 16:06 on Sun [place] (DUOVISC 00 :24 03/29/22 at Medic al VISCO 1047, Branch ELASTIC) Until Sun intraocular 03/29/22 at injection 1106, Routine, Intra-op ceFAZolin 2021- No PRN, Univers (ANCEF) 03-29 Starting ity of injection 15:47: 16:06 on Sun [place] 00 :24 03/29/22 at Medical 1047, Branch Until Sun03/29/22 at 1106, LIVIER, Intra-op balanced 2021- No PRN, Univers salt irrig 03-29 Starting ity of soln comb1 15:46: 16:06 [place] (BSS PLUS) 00 :24 03/29/22 at [facility] ical ophthalmic 1046, Branch solution Until Sun [...] o f Recomb. 15:35: 16:06 on Sun (HYLENEX) 00 :24 03/29/22 at [facility] injection 1035, Branch Until Sun03/29/22 at 1106, Routine, Intra-op eye block 2021- No PRN, Univers syringe 11 03-29 Starting ity of mL 15:35: 16:06 on Sun 00 :24 03/29/22 at [facility] 1035, Branch Until Sun03/29/22 at 1106, Intra-op tropicamide 2021- No 1[drp] 1 Drop, Univers (MYDRIACYL) 03-29 Right Eye, i ty of 1 % 13:45: 13:48 ONCE, 1 [place] ophthalmic 00 :00 dose, On Medic al drops 1 Sun Branch Drop 03/29/22 at 0845, Routine, DSU Pre-op phenylephri 2021- No 1[drp] 1 Drop, Univers ne 03-29 Right Eye, ity of (ANDREA-SYNEPH 13:45: 13:47 ONCE, 1 [place] RINE) 2.5 % 00 :00 dose, On [...] RINE) 2.5 % 00 :00 dose, On [facility] ophthalmic Wed Branch drops 1 03/29/22 at [...] 15:04: 15:34 on Sun (ADRENALIN) 00 :50 03/15/22 at Med ical injection 1004, Branch Until Sun03/15/22 at 1034, Routine, Intra-op balanced 2021- No PRN, Univers salt irrig 03-15 Starting ity of soln comb1 15:04: 15:34 [place] (BSS PLUS) 00 :50 03/15/22 at [facility] ophthalmic 1004, Branch solution Until Sun 500 [...] 14:55: 15:34 on Sun (HYLENEX) 00 :50 03/15/22 at Medic al injection 0955, Branch Until Sun03/15/22 at 1034, Routine, Intra-op eye block 2021- No PRN, Univers syringe 11 03-15 Starting ity of mL 14:54: 15:34 on Sun 00 :50 03/15/22 at Medical 0954, Branch Until Sun03/15/22 at 1034, Intra-op tropicamide 2021- No 1[drp] 1 Drop, Univers (MYDRIACYL) 03-15 Left Eye, it y of 1 % 13:15: 13:37 ONCE, 1 [place] ophthalmic 00 :00 dose, On Medic al [...] 42 [facility] rs ringers IV 03-15- mL/hr, ity of infusion 13:15: 13:38 1,000 [...] 42 [facility] rs ringers IV 03-15- mL/hr, ity of infusion 13:15: 13:38 1,000 mL, Jez as 1,000 mL 00 :00 IV Medical Infusion, Branch ONCE, 1 dose, On Sun03/15/22 at 0815, Routine, DSU Pre-op SUMAtriptan 2022-0 Yes 25mg Take 25 mg Univers 25 mg 7-18 by mouth ity of tablet 00:00: as needed. [place] Medical [facility] SUMAtriptan 2022-0 Yes 25mg Take 25 mg Univers 25 mg 7-18 by mouth ity of tablet 00:00: as needed. [place] [facility] SUMAtriptan 2022-0 Yes 25mg Take 25 mg Univers 25 mg 7-18 by mouth ity of tablet 00:00: as needed. [place] [facility] SUMAtriptan 2022-0 Yes 25mg Take 25 mg Univers 25 mg 7-18 by mouth ity of tablet 00:00: as needed. [place] [facility] SUMAtriptan 2022-0 Yes 25mg Take 25 mg Univers 25 mg 7-18 by mouth ity of tablet 00:00: as needed. [place] [facility] SUMAtriptan 2022-0 Yes 25mg Take 25 mg Univers 25 mg 7-18 by mouth ity of tablet 00:00: as needed. [place] [facility] SUMAtriptan 2022-0 Yes 25mg Take 25 mg Univers 25 mg 7-18 by mouth ity of tablet 00:00: as needed. [place] [facility] SUMAtriptan 2022-0 Yes 25mg Take 25 mg Univers 25 mg 7-18 by mouth ity of tablet 00:00: as needed. [place] [facility] SUMAtriptan 2022-0 Yes 25mg Take 25 mg Univers 25 mg 7-18 by mouth ity of tablet 00:00: as needed. [place] [address] Medical Branch clopidogreL 2022-0 Yes 75mg Take 75 mg Univers 75 mg 6-06 by mouth ity of tablet 00:00: in the [place] morning. Medical Branch clopidogreL 2022-0 Yes 75mg Take 75 mg Univers 75 mg 6-06 by mouth ity of tablet 00:00: in the [place] morning. Medical Branch clopidogreL 2022-0 Yes 75mg Take 75 mg Univers 75 mg 6-06 by mouth ity of tablet 00:00: in the [place] morning. Medical Branch clopidogreL 2022-0 Yes 75mg Take 75 mg Univers 75 mg 6-06 by mouth ity of tablet 00:00: in the [place] 00 morning. Medical Branch clopidogreL 2022-0 Yes 75mg Take 75 mg Univers 75 mg 6-06 by mouth ity of tablet 00:00: in the [place] 00 morning. Medical Branch clopidogreL 2022-0 Yes 75mg Take 75 mg Univers 75 mg 6-06 by mouth ity of tablet 00:00: in the [place] 00 morning. Medical Branch clopidogreL 2022-0 Yes 75mg Take 75 mg Univers 75 mg 6-06 by mouth ity of tablet 00:00: in the [place] 00 morning. Medical Branch clopidogreL 2022-0 Yes 75mg Take 75 mg Univers 75 mg 6-06 by mouth ity of tablet 00:00: in the [place] 00 morning. Medical Branch clopidogreL 2022-0 Yes 75mg Take 75 mg Univers 75 mg 6-06 by mouth ity of tablet 00:00: in the [place] 00 morning. Medical Branch atorvastati 2022-0 Yes 40mg Take 40 mg Univers n 40 mg 5-25 by mouth ity of tablet 00:00: at [place] [address] bedtime. Medical Branch atorvastati 2022-0 Yes 40mg Take 40 mg Univers n 40 mg 5-25 by mouth ity of tablet 00:00: at [place] [address] bedtime. Medical Branch atorvastati 2022-0 Yes 40mg Take 40 mg Univers n 40 mg 5-25 by mouth ity of tablet 00:00: at [place] [address] bedtime. Medical Branch atorvastati 2022-0 Yes 40mg Take 40 mg Univers n 40 mg 5-25 by mouth ity of tablet 00:00: at [place] [address] bedtime. Medical Branch atorvastati 2022-0 Yes 40mg Take 40 mg Univers n 40 mg 5-25 by mouth ity of tablet 00:00: at [place] [address] bedtime. Medical Branch atorvastati 2022-0 Yes 40mg Take 40 mg Univers n 40 mg 5-25 by mouth ity of tablet 00:00: at [place] [address] bedtime. Medical Branch atorvastati 2022-0 Yes 40mg Take 40 mg Univers n 40 mg 5-25 by mouth ity of tablet 00:00: at [place] [address] bedtime. Medical Branch atorvastati 2022-0 Yes 40mg Take 40 mg Univers n 40 mg 5-25 by mouth ity of tablet 00:00: at [place] [address] bedtime. Medical Branch atorvastati 2021-0 Yes 40mg Take 40 mg Univers n 40 mg 5-25 by mouth ity of tablet 00:00: at [place] 00 bedtime. Medical Branch predniSONE 2021-0 Yes [id number] 20mg Take 1 Univers 20 mg 3-07 tablet by ity of tablet 00:00: mouth [place] 00 daily. Medical Branch diphenhydrA 2021-0 Yes [id number] 25mg Take 1 Univers MINE 3-07 capsule by ity of (BENADRYL) 00:00: mouth [place] 25 mg 00 every 6 Medical capsule (six) Branch hours as needed for Allergies. predniSONE 2021-0 Yes [id number] 20mg Take 1 Univers 20 mg 3-07 tablet by ity of tablet 00:00: mouth [place] 00 daily. Medical Branch diphenhydrA 0 Yes [id number] 25mg Take 1 Univers MINE 3-07 capsule by ity of (BENADRYL) 00:00: mouth [place] 25 mg 00 every 6 Medical capsule (six) Branch hours as needed for Allergies. predniSONE 2021-0 Yes [id number] 20mg Take 1 Univers 20 mg 3-07 tablet by ity of tablet 00:00: mouth [place] 00 daily. Medical Branch diphenhydrA 2021-0 Yes [id number] 25mg Take 1 Univers MINE 3-07 capsule by ity of (BENADRYL) 00:00: mouth [place] 25 mg 00 every 6 Medical capsule (six) Branch hours as needed for Allergies. predniSONE 2021-0 Yes [id number] 20mg Take 1 Univers 20 mg 3-07 tablet by ity of tablet 00:00: mouth [place] 00 daily. Medical Branch diphenhydrA 2021-0 Yes [id number] 25mg Take 1 Univers MINE 3-07 capsule by ity of (BENADRYL) 00:00: mouth [place] 25 mg 00 every 6 Medical capsule (six) Branch hours as needed for Allergies. predniSONE 2021-0 2021- No [id number] 20mg Take 1 Univers 20 mg 3-07 08-03 tablet by ity of tablet 00:00: 00:00 mouth [place] 00 :00 daily. Medical Branch diphenhydrA 2021-0 2021- No [id number] 25mg Take 1 Univers MINE 3-07 08-03 capsule by ity of (BENADRYL) 00:00: 00:00 mouth [place] 25 mg 00 :00 every 6 Medical capsule (six) Branch hours as needed for Allergies. predniSONE 2021- No [id number] 20mg Take 1 Univers 20 mg 10-17 tablet by ity of tablet 00:00: 00:00 mouth [place] 00 :00 daily. Medical Branch diphenhydrA 2021-0 2021- No [id number] 25mg Take 1 Univers MINE 10-17- capsule by ity of (BENADRYL) 00:00: 00:00 mouth [place] 25 mg 00 :00 every 6 Medical capsule (six) Branch hours as needed for Allergies. busPIRone [address] [facility] 2[facility]5 MG 2-24 [facility]ILY [facility]: Medical half tablet 00 [place] busPIRone [address] [facility] 2.5 MG 2-24 DAILY [facility] 00:[facility]: Medical half tablet 00 [place] LANTUS 0 Yes Univers SOLOSTAR 1-08 ity of U-100 00:00: [place] INSULIN 100 00 Medical unit/mL (3 Branch mL) injection LANTUS 0 Yes Univers SOLOSTAR 1-08 ity of U-100 00:00: [place] INSULIN 100 00 Medical unit/mL (3 Branch mL) injection LANTUS 2021-0 Yes 42U inject [...] Univers 10 mg 2-21 ity of 00:00: [address] metFORMIN 2020-08 Yes Univers 1,000 mg 2-21 ity of tablet 00:00: [address] busPIRone 2020-08 Yes Univers 7.5 mg 2-21 ity of tablet 00:00: [address] PARoxetine 2020-08 Yes Univers 40 mg 2-21 ity of tablet 00:00: [address] JARDIANCE 2020-08 Yes Univers 10 mg 2-21 ity of 00:00: [address] metFORMIN 2020-08 Yes Univers 1,000 mg 2-21 ity of tablet 00:00: [address] busPIRone 2020-08 Yes Univers 7.5 mg 2-21 ity of tablet 00:00: [address] PARoxetine 2020-08 Yes Univers 40 mg 2-21 ity of tablet 00:00: [place] [facility] JARDIANCE 2020-08 Yes 10mg Take 10 mg Un anil 10 mg 2-21 by mouth ity of 00:00: daily. Medical Branch metFORMIN 2020-08 Yes 1000mg Take 1,000 Univers 1,000 mg 2-21 mg by ity of tablet 00:00: mouth in [place] the Medical morning Branch and 1,000 mg in the evening. Take with meals. busPIRone 2020-08 Yes 7.5mg Take 7.5 Uni vers 7.5 mg 2-21 mg by ity of tablet 00:00: mouth as [place] [address] needed. Medical Branch PARoxetine 2020-08 Yes 40mg Take 40 mg U nivers 40 mg 2-21 by mouth ity of tablet 00:00: at [place] [address] bedtime. Medical Branch JARDIANCE 2020-08 Yes 10mg Take 10 mg Un anil 10 mg 2-21 by mouth ity of 00:00: daily. [place] [address] Medical Branch metFORMIN 2020-08 Yes 1000mg Take 1,000 Univers 1,000 mg 2-21 mg by ity of tablet 00:00: mouth in [place] [address] the [facility] morning Branch and 1,000 mg in the evening. Take with meals. busPIRone 2020-08 Yes 7.5mg Take 7.5 Uni vers 7.5 mg 2-21 mg by ity of tablet 00:00: mouth as [place] [address] needed. Medical Branch PARoxetine 2020-08 Yes 40mg Take 40 mg U nivers 40 mg 2-21 by mouth ity of tablet 00:00: at [place] [address] bedtime. Medical Branch JARDIANCE 2020-08 Yes 10mg Take 10 mg Un anil 10 mg 2-21 by mouth ity of 00:00: daily. [place] [address] Medical Branch metFORMIN 2020-08 Yes 1000mg Take 1,000 Univers 1,000 mg 2-21 mg by ity of tablet 00:00: mouth in [place] [address] the [facility] morning Branch and 1,000 mg in the evening. Take with meals. busPIRone 2020-08 Yes 7.5mg Take 7.5 Uni vers 7.5 mg 2-21 mg by ity of tablet 00:00: mouth as [place] [address] needed. Medical Branch PARoxetine 2020-08 Yes 40mg Take 40 mg U nivers 40 mg 2-21 by mouth ity of tablet 00:00: at [place] [address] bedtime. Medical Branch JARDIANCE 2020-08 Yes 10mg Take 10 mg Un anil 10 mg 2-21 by mouth ity of 00:00: daily. Medical Branch metFORMIN 2020-08 Yes 1000mg Take 1,000 Univers 1,000 mg 2-21 mg by ity of tablet 00:00: mouth in [place] the Medical morning Branch and 1,000 mg in the evening. Take with meals. busPIRone 2020-08 Yes 7.5mg Take 7.5 Uni vers 7.5 mg 2-21 mg by ity of tablet 00:00: mouth as [place] 00 needed. Medical Branch PARoxetine 2020-08 Yes 40mg Take 40 mg U nivers 40 mg 2-21 by mouth ity of tablet 00:00: at [place] [address] bedtime. Medical Branch JARDIANCE 2020-08 Yes 10mg Take 10 mg Un anil 10 mg 2-21 by mouth ity of 00:00: daily. Medical Branch metFORMIN 2020-08 Yes 1000mg Take 1,000 Univers 1,000 mg 2-21 mg by ity of tablet 00:00: mouth in [place] [address] the Medical morning Branch and 1,000 mg in the evening. Take with meals. busPIRone 2020-08 Yes 7.5mg Take 7.5 Uni vers 7.5 mg 2-21 mg by ity of tablet 00:00: mouth as [place] 00 needed. Medical Branch PARoxetine 2020-08 Yes 40mg Take 40 mg U nivers 40 mg 2-21 by mouth ity of tablet 00:00: at [place] [address] bedtime. Medical Branch JARDIANCE 2020-08 Yes 10mg Take 10 mg Un anil 10 mg 2-21 by mouth ity of 00:00: daily. [place] [address] Medical Branch metFORMIN 2020-08 Yes 1000mg Take 1,000 Univers 1,000 mg 2-21 mg by ity of tablet 00:00: mouth in [place] [address] the Medical morning Branch and 1,000 mg in the evening. Take with meals. busPIRone 2020-08 Yes 7.5mg Take 7.5 Uni vers 7.5 mg 2-21 mg by ity of tablet 00:00: mouth as [place] 00 needed. Medical Branch PARoxetine 2020-08 Yes 40mg Take 40 mg U nivers 40 mg 2-21 by mouth ity of tablet 00:00: at [place] [address] bedtime. Medical Branch JARDIANCE 2020-08 Yes 10mg Take 10 mg Un anil 10 mg 2-21 by mouth ity of 00:00: daily. Medical Branch metFORMIN 2020-08 Yes 1000mg Take 1,000 Univers 1,000 mg 2-21 mg by ity of tablet 00:00: mouth in [place] the Medical morning Branch and 1,000 mg in the evening. Take with meals. busPIRone 2020-08 Yes 7.5mg Take 7.5 Uni vers 7.5 mg 2-21 mg by ity of tablet 00:00: mouth as [place] 00 needed. Medical Branch PARoxetine 2020-08 Yes 40mg Take 40 mg U nivers 40 mg 2-21 by mouth ity of tablet 00:00: at [place] [address] bedtime. Medical Branch JARDIANCE 2020-08 Yes 10mg Take 10 mg Un anil 10 mg 2-21 by mouth ity of 00:00: daily. Medical Branch metFORMIN 2020-08 Yes 1000mg Take 1,000 Univers 1,000 mg 2-21 mg by ity of tablet 00:00: mouth in [place] [address] the [facility] morning Branch and 1,000 mg in the evening. Take with meals. busPIRone 2020-08 Yes 7.5mg Take 7.5 Uni vers 7.5 mg 2-21 mg by ity of tablet 00:00: mouth as [place] 00 needed. Medical Branch PARoxetine 2020-08 Yes 40mg Take 40 mg U nivers 40 mg 2-21 by mouth ity of tablet 00:00: at [place] [address] bedtime. Medical Branch JARDIANCE 2020-08 Yes 10mg Take 10 mg Un anil 10 mg 2-21 by mouth ity of 00:00: daily. Medical Branch metFORMIN 2020-08 Yes 1000mg Take 1,000 Univers 1,000 mg 2-21 mg by ity of tablet 00:00: mouth in [place] [address] the [facility] morning Branch and 1,000 mg in the evening. Take with meals. busPIRone 2020-08 Yes 7.5mg Take 7.5 Uni vers 7.5 mg 2-21 mg by ity of tablet 00:00: mouth as [place] 00 needed. Medical Branch PARoxetine 2020-08 Yes 40mg Take 40 mg U nivers 40 mg 2-21 by mouth ity of tablet 00:00: at [place] [address] bedtime. Medical Branch donepeziL 2020-08 Yes Univers 10 mg 2-17 ity of tablet 00:00: [place] 00 Medical Branch donepeziL 2020-08 Yes Univers 10 mg 2-17 ity of tablet 00:00: [place] 00 Medical Branch donepeziL 2020-08 Yes 10mg Take 10 mg Un anil 10 mg 2-17 by mouth ity of tablet 00:00: at [place] [address] bedtime. Medical Branch donepeziL 2020-08 Yes 10mg Take 10 mg Un anil 10 mg 2-17 by mouth ity of tablet 00:00: at [place] [address] bedtime. Medical Branch donepeziL 2020-08 Yes 10mg Take 10 mg Un anil 10 mg 2-17 by mouth ity of tablet 00:00: at [place] [address] bedtime. Medical Branch donepeziL 2020-08 Yes 10mg Take 10 mg Un anil 10 mg 2-17 by mouth ity of tablet 00:00: at [place] [address] bedtime. Medical Branch donepeziL 2020-08 Yes 10mg Take 10 mg Un anil 10 mg 2-17 by mouth ity of tablet 00:00: at [place] [address] bedtime. Medical Branch donepeziL 2020-08 Yes 10mg Take 10 mg Un anil 10 mg 2-17 by mouth ity of tablet 00:00: at [place] [address] bedtime. Medical Branch donepeziL 2020-08 Yes 10mg Take 10 mg Un anil 10 mg 2-17 by mouth ity of tablet 00:00: at [place] [address] bedtime. Medical Branch donepeziL 2020-08 Yes 10mg Take 10 mg Un anil 10 mg 2-17 by mouth ity of tablet 00:00: at [place] [address] bedtime. Medical Branch donepeziL 2020-08 Yes 10mg Take 10 mg Un anil 10 mg 2-17 by mouth ity of tablet 00:00: at [place] [address] bedtime. Medical Branch HUMALOG 2020-08 Yes Univers KWIKPEN 1-27 ity of INSULIN 100 00:00: [place] unit/mL 00 Medical injection Branch tamsulosin 2020-08 Yes Univers 0.4 mg 24 1-27 ity of hr capsule 00:00: [place] 00 Medical Branch HUMALOG 2020-08 Yes Univers [...] 2022-03-29 16:25:00 141 mm[Hg] Univer sity of [facility] Diastolic blood 2022-03-29 16:25:00 76 mm[Hg] Unive rsity of [facility] Heart rate 2022-03-29 16:25:00 64 /min Universi ty of [facility] Respiratory rate 2022-03-29 16:25:00 15 /min Univ ersity of [facility] Oxygen saturation in 2022-03-29 16:25:00 99 /min University of Arterial blood by [place] [facility] Pulse oximetry Branch Body temperature 2022-03-29 16:05:00 36.61 Ene[place] [facility] ersity [facility] Body height 2022-03-23 12:02:00 175 cm Universi ty of [place] [facility] [place] Body weight 2022-03-23 12:02:00 116.6 kg Universi ty of [facility] BMI 2022-03-23 12:02:00 38.07 kg/m2 Universi ty [facility] Branch Systolic blood 2022-03-29 13:41:00 151 mm[Hg] Univer sity of [facility] Diastolic blood 2022-03-29 13:41:00 74 mm[Hg] Unive rsity of [facility] Heart rate 2022-03-29 13:41:00 69 /min Universi ty of [facility] Body temperature 2022-03-29 13:41:00 36.5 Eneida [facility] ersity [facility] Respiratory rate 2022-03-29 13:41:00 18 /min Univ ersity of [facility] Oxygen saturation in 2022-03-29 13:41:00 98 /min University of Arterial blood by [place] Pulse oximetry Branch Body height 2022-03-23 12:02:00 175 cm Universi ty of [facility] Body weight 2022-03-23 12:02:00 116.6 kg Universi ty of [facility] BMI 2022-03-23 12:02:00 38.07 kg/m2 Universi ty of [place] [facility] Systolic blood 2022-03-15 16:00:00 139 mm[Hg] Univer sity of pressure [place] [facility] Diastolic blood 2022-03-15 16:00:00 66 mm[Hg] Unive rsity of pressure [place] [facility] [place] Heart rate 2022-03-15 16:00:00 70 /min Universi ty of [place] [facility] [place] Body temperature 2022-03-15 16:00:00 36.33 Eneida Univ ersity of [place] [facility] Oxygen saturation in 2022-03-15 16:00:00 99 /min University of Arterial blood by [place] [employer] Pulse oximetry Branch Respiratory rate 2022-03-15 15:59:00 13 /min Univ ersity of [place] [facility] Body height 2022-03-01 18:11:00 175 cm Universi ty of [place] [facility] [place] Body weight 2022-03-01 18:11:00 116.6 kg Universi ty of [place] [facility] [place] BMI 2022-03-01 18:11:00 38.07 kg/m2 Universi ty of [place] [facility] Systolic blood 2022-03-15 13:46:00 160 mm[Hg] Univer sity of pressure [place] [facility] Diastolic blood 2022-03-15 13:46:00 72 mm[Hg] Unive rsity of pressure [place] [facility] [place] Heart rate 2022-03-15 13:46:00 68 /min Universi ty of [place] [facility] [place] Body temperature 2022-03-15 13:46:00 36.28 Eneida Univ ersity of [place] [facility] [place] Respiratory rate 2022-03-15 13:46:00 18 /min Univ ersity of [place] [facility] [place] Oxygen saturation in 2022-03-15 13:46:00 97 /min University of Arterial blood by [place] [employer] Pulse oximetry Branch Body height 2022-03-01 18:11:00 175 cm Universi ty of [place] [facility] Body weight 2022-03-01 18:11:00 116.6 kg Universi ty of [place] [facility] BMI 2022-03-01 18:11:00 38.07 kg/m2 Universi ty of [place] [facility] Procedures Procedure Date / Time Performing Source Performed Clinician AUTHORIZATION FOR RELEASE OF 2022-05-01 Doctor Unassigned, [facility] PHI 05:01:00 [place] [facility] PHACOEMULSIFICATION OF 2022-03-29 Dante Archuleta [facility] CATARACT WITH INTRAOCULAR 15:18:00 Medica l Branch LENS IMPLANT POCT GLUCOSE (AUTOMATED) 2022-03-29 Dante Archuleta [facility] 13:47:00 Medical Branch POCT GLUCOSE (AUTOMATED) 2022-03-29 Dante Archuleta [facility] 13:47:00 Medical Branch CONSENT/REFUSAL FOR DIAGNOSIS 2022-03-27 Doctor Unassigned, [facility] AND TREATMENT 21:06:25 [place] [facility] CONSENT/REFUSAL FOR DIAGNOSIS 2022-03-27 Doctor Unassigned, [facility] AND TREATMENT 21:06:25 [place] [facility] ASSIGNMENT OF BENEFITS 2022-03-27 Doctor Unassmarcos, [facility] 21:05:55 [place] [facility] ASSIGNMENT OF BENEFITS 2022-03-27 Doctor Unaformerly [facility] 21:05:55 [place] [facility] [place] PHACOEMULSIFICATION OF 2022-03-15 Dante Archuleta [facility] CATARACT WITH INTRAOCULAR 14:45:00 Medica l Branch LENS IMPLANT POCT GLUCOSE(AGE >30DAYS) 2022-03-15 Stiven Cash [facility] 13:30:00 Medical Branch POCT GLUCOSE(AGE >30DAYS) 2022-03-15 Stiven Cash [facility] 13:30:00 Medical Branch POCT GLUCOSE (AUTOMATED) 2022-03-15 Dante Archuleta [facility] 13:23:00 Medical Branch POCT GLUCOSE (AUTOMATED) 2022-03-15 Dante Archuleta [facility] 13:23:00 Medical Branch ASSIGNMENT OF BENEFITS 2022-03-13 Doctor Unaformerly [facility], [facility] 21:10:58 [place] [facility] PHYSICIAN ORDERS 2022-03-06 Doctor Unassigned, [facility] 05:01:00 [place] [facility] Plan of Care Planned Activity Planned Date Details Comments Source Future Scheduled 2022-08-[address] [facility] 00:00:00 WELLNESS (YEAR 2 or Medical Center FIRST YEAR if no IPPE) [code = MEDICARE ANNUAL WELLNESS (YEAR 2 or FIRST YEAR if no IPPE)] Future Scheduled 2022-08-[address] [facility] 00:00:00 (12+) [code = Medical Center DEPRESSION SCREENING (12+)] Future Scheduled 2022-08-13 FALLS RISK SCREENING [facility] 00:00:00 [code = FALLS RISK Medical C enter SCREENING] Future Scheduled 2022-04-13 INFLUENZA VACCINE (#1) [facility] 00:00:00 [code = INFLUENZA Medical Ce nter VACCINE (#1)] Future Scheduled 2022-04-13 INFLUENZA VACCINE (#1) C [...] 65+ YRS (1 - PCV)] Future Scheduled 2016 PNEUMOCOCCAL 65+ YRS ([address] [facility] 00:00:00 - PCV) [code = Medical Cente r PNEUMOCOCCAL 65+ YRS (1 - PCV)] Future Scheduled 2001 SHINGLES VACCINES ([address] [facility] 00:00:00 2) [code = SHINGLES Medical Center VACCINES (1 of 2)] Future Scheduled 2001 SHINGLES VACCINES ([address] [facility] 00:00:00 2) [code = SHINGLES Medical Center VACCINES (1 of 2)] Future Scheduled 1970 DTAP/TDAP/TD [facility]ACCINES [facility] 00:00:00 (1 - Tdap) [code = Medical C enter DTAP/TDAP/TD VACCINES (1 - Tdap)] Future Scheduled 1970 DTAP/TDAP/TD VACCINES [facility] 00:00:00 (1 - Tdap) [code = Medical C enter DTAP/TDAP/TD VACCINES (1 - Tdap)] Future Scheduled 1969 HEPATITIS C SCREENING [facility] 00:00:00 [code = HEPATITIS C Medical Center SCREENING] Future Scheduled 1969 HEPATITIS C [facility]CRE[facility]ING [facility] 00:00:00 [code = HEPATITIS C Medical Center SCREENING] Future Scheduled [address] [facility] 00:00:00 Counseling and Medical Cente r Screening (12+) [code = Tobacco Cessation Counseling and Screening (12+)] Future Scheduled [address] [facility] 00:00:00 Counseling and Medical Cente r Screening (12+) [code = Tobacco Cessation Counseling and Screening (12+)] Future Scheduled 1950 COVID-19 VACCINE (#1) [facility] 00:00:00 [code = COVID-[address] VACCINE (#1)] Future Scheduled 1950 COVID-19 VACCINE (#1) [facility] 00:00:00 [code = COVID-[address] VACCINE (#1)] Future Scheduled 1951 CT Colonography (combo) [facility] 00:00:00 [code = CT Colonography [facility] (combo)] Future Scheduled 1950 Screening for malignant [facility] 00:00:00 neoplasm of colon Medical Ce nter (procedure) [code = 224978530] Future Scheduled 1951 Screening for malignant [facility] 00:00:00 neoplasm of colon Medical Ce nter (procedure) [code = 100062492] Future Scheduled 1951 Screening for malignant [facility] 00:00:00 neoplasm of colon Medical Ce nter (procedure) [code = 535323281] Future Scheduled 1951 Screening for malignant [facility] 00:00:00 neoplasm of colon Medical Ce nter (procedure) [code = 560020984] Future Scheduled 1950 Sigmoidoscopy [code = [facility] 00:[facility]:00 Sigmoidoscopy] Medical Cente r Future Scheduled 1951 CT Colonography (combo) [facility] 00:00:00 [code = CT Colonography [facility] (combo)] Future Scheduled 1951 Screening for malignant [facility] 00:00:00 neoplasm of colon Medical Ce nter (procedure) [code = 058910717] Future Scheduled 1951 Screening for malignant [facility] 00:00:00 neoplasm of colon Medical Ce nter (procedure) [code = 401887792] Future Scheduled 1951 Screening for malignant [facility] 00:00:00 neoplasm of colon Medical Ce nter (procedure) [code = 249269496] Future Scheduled 1951 Screening for malignant [facility] 00:00:00 neoplasm of colon Medical Ce nter (procedure) [code = 298831369] Future Scheduled 1950 Sigmoidoscopy [code = [facility] 00:[facility]:00 Sigmoidoscopy] Medical Cente r Encounters Start End Encounter Admission Attending Care Care Encounter Source Date/Time Date/Time Type Type Clinicians Facility Department ID 2021-10-07 [id number] [facility] 2021-10-07 [facility] [id number] [facility] 2021-09-29 Outpatient Cedrick ARCHULETA AKGLENN OPH [id number] Univers 15:56:16 DANTE [facility] 2022-05-01 2022-05-01 Orders Doctor BAY [id number] Univers 00:00:00 00:00:00 Only Unassigned, ANEL 350.1.13.10 ity of [place] [facility] 4.2.7.2.686 Jez as [id number] [address] 2022-03-29 2022-03-29 Outpatient Cedrick ARCHULETA AKGLENN OPH [id number] Univers 08:33:00 11:33:00 DANTE carvajal [facility] 2022-03-29 2022-03-29 [facility] Geremias AKGLENN [id number] Univers 08:33:00 11:33:00 Encounter Dante DONG 350.1.13.10 [place] [id number] [facility] [address] 2022-03-29 2022-03-29 Surgery [facility] [id number] Univers 09:32:00 10:05:00 Dante DONG 350.1.13.10 [place] [id number] [facility] [address] 2022-03-27 2022-03-27 Laboratory Only, Adc Test [facility] 1.2.840. 114 [id number] Univers 16:15:00 16:30:00 Only Dante Archuleta LETITIA 350.1.13.1 0 [place] [id number] [place] [address] Branch 2022-03-27 2022-03-[address] [facility] [id number] Univers 16:15:00 16:15:00 DANTE [facility] 2022-03-15 2022-03-15 Outpatient R [facility] OPH [id number] Univers 08:04:00 11:05:00 DANTE ity [facility] 2022-03-15 2022-03-15 [facility] [id number] Univers 08:04:00 11:05:00 Encounter Dante Busch BELKYSLA NENA 350.1.13.10 it[place] [id number] [facility] [address] 2022-03-15 2022-03-15 Surgery [facility] 1.2.840.114 [id number] Univers 08:58:00 09:31:00 Dante RIZVITON 350.1.13.10 it[place] of [place] [id number] [facility] [address] 2022-03-13 2022-03-13 Laboratory Only, Adc Test [facility] 1.2.840. 114 [id number] Univers 13:30:00 13:45:00 Only GeremiasDante Jo-Ann LETITIA 350.1.13.1 0 [place] [facility] [id number] [address] 2022-03-13 2022-03-13 Outpatient R GEREMIAS [facility] [id number] Univers 13:30:00 13:30:00 DANTE carvajal [facility] 2022-03-13 2022-03-13 Orders Doctor PHU 1.2.840.114 [id number] Univers 00:00:00 00:00:00 Only Unassigned, ANEL 350.1.13.10 ity of [place] [facility] 4.2.7.2.686 Jez as [id number] [address] 2022-03-06 2022-03-06 Pbx Manager Dougie, Janel Lab Main [facility] 1.2.8 40.114 [id number] Univers 15:30:00 15:45:00 Visit Dante Archuleta 350.1.13.1 0 [place] of [place] [facility] [id number] Al dical [place] [id number] Branch BUILDING 2022-03-06 2022-03-06 Outpatient Cedrick ARCHULETA [facility] [id number] Univers 15:30:00 15:30:00 DANTE carvajal [facility] 2022-03-06 2022-03-06 Orders Doctor PHU 1.2.840.114 [id number] Univers 00:00:00 00:00:00 Only Unassigned, ANEL 350.1.13.10 ity of [place] [facility] 4.2.7.2.686 Jez as [id number] [address] 2022-01-05 2022-01-05 Telephone Sergio Rodriguez [facility] 1.2.840.114 [id number] Univers 00:00:00 00:00:00 [facility] 350.1.13.10 it [place]2.[place] BAJADERO [id number] [address] OFFICE BUILDING 2021-11-22 2021-11-22 Outpatient Cedrick HECTOR [facility] [id number] Univers 08:00:00 23:59:00 ROSE carvajal [facility] 2021-11-22 2021-11-22 [facility] Rose Hector [facility] 1.2.84 0.114 [id number] Univers 07:32:55 23:59:00 Encounter Sergio Rodriguez Renzo Lee [facility] 350.1.13. 10 ity of [place] Ca[place]am [place] 4.2.7.2.686 [place] Jazzmine Alex A NOLEN [id number] [facility] [address] ([facility]) 2021-11-22 2021-11-22 Pbx Manager Lab, [facility] 1.2.840.114 [id number] Univers 07:15:00 07:30:00 Visit Mando Goodman 350.1.13.10 [place] of [place] [phone] [facility] [address] ([facility]) 2021-11-21 2021-11-21 Outpatient Cedrick LOUIE [facility] [id number] Univers 09:00:00 09:00:00 [facility] 2021-11-21 2021-11-21 Outpatient Cedrick LOUIE [facility] [id number] Univers 09:00:00 09:00:00 [facility] 2021-10-28 2021-10-28 Orders Doctor PHU 1.2.840.114 [id number] Univers 00:00:00 00:00:00 Only Unassigned, ANEL 350.1.13.10 ity of [place] [facility] 4.2.7.2.686 Jez as [id number] [address] 2021-10-24 2021-10-24 Outpatient Cedrick BENOIT [facility] [id number] Univers 14:15:00 14:15:00 SHABBIR carvajal [facility] 2021-10-24 2021-10-24 Outpatient Cedrick BENOIT [facility] [id number] Univers 14:15:00 14:15:00 SHABBIR carvajal [facility] 2021-10-17 2021-10-17 Office Sergio Rodriguez [facility] 1.2.840.114 [id number] Univers 09:00:00 09:30:00 Visit Renzo [facility] 350.1.13.10 it [place] [id number] [address] OFFICE BUILDING 2021-10-17 2021-10-17 Outpatient R SERGIO RODRIGUEZ [facility] [id number] Univers 09:00:00 09:00:00 ity [facility] 2021-10-10 2021-10-10 Telephone Sergio Rodriguez [facility] 1.2.840.114 [id number] Univers 00:00:00 00:00:00 [facility] 350.1.13.10 it [place] [id number] [address] OFFICE BUILDING 2021-10-03 2021-10-03 Outpatient R GEREMIAS [facility] [id number] Univers 15:15:00 15:15:00 DANTE [facility] 2021-09-05 2021-09-05 Malaika Joshi [facility] 1.2.840.114 [id number] Univers 00:00:00 00:00:00 [facility] 350.1.13.10 it y of [place] 4.2.7.2.686 Jez as CECILY?BLEA [phone] Al king [place] [address] [facility] OFFICE BUILDING 2021-08-27 2021-08-27 Telephone PHU [place] 1.2.840.114 [id number] Univers 00:00:00 00:00:00 Barbara TAM 350.1.13.10 it y of HOSPITAL 4.2.7.2.686 Jez as [id number] [address] 2021-08-26 2021-08-26 Outpatient R TANJA [facility] [id number] Univers 11:00:00 11:50:53 [facility] 2021-08-26 2021-08-26 Urgent Ac Yu [facility] 1.2.840.114 [id number] Univers 11:00:00 11:20:00 Lita Roa [facility] 350.1.13.10 [facility] 4.2.7.2.686 Jez as CECILY?BLEA [id number] Al sabinetavia [place] [address] MEDICAL OFFICE BUILDING Results Test Description Test Time Test Comments Results Result Comments Source POCT GLUCOSE (AUTOMATED) 2022-03-29 13:50:06 Test Item Value Reference Range Interpretation Comme nts POCT GLU (test code = 3832350415) 230 mg/dL 70-110 H Lab Interpretation (test code = 67609-8) Abnormal [facility] GLUCOSE (AUTOMATED)2022-03-29 13:50:06 Test Item Value Reference Range Interpretation Comments POCT GLU (test code = 2686090261) 230 mg/dL 70-110 H Lab Interpretation (test code = Abnormal 45554-8) [facility] GLUCOSE (AUTOMATED)2022-03-15 13:26:07 Test Item Value Reference Range Interpretation Comments POCT GLU (test code = 0363895237) 270 mg/dL 70-110 H Lab Interpretation (test code = Abnormal 21047-4) [facility] GLUCOSE (AUTOMATED)2022-03-15 13:26:07 Test Item Value Reference Range Interpretation Comments POCT GLU (test code = 3731585432) 270 mg/dL 70-110 H Lab Interpretation (test code = Abnormal 36619-8) [facility] [id number] 00:00:00 Test Item Value Reference Range Interpretation Comments POCT Glu (age>30days) (test code = 270 mg/dL 70-110 A 3342) Lab Interpretation (test code = Abnormal 30166-6) [facility] [id number] 00:00:00 Test Item Value Reference Range Interpretation Comments POCT Glu (age>30days) (test code = 270 mg/dL 70-110 A 3342) Lab Interpretation (test code = Abnormal 71133-7) [facility]
--- NOTE | 2022-09-17 16:45 | ER ---
Nurse's Notes [facility] Name: Marcelino Mccall Age: 72 yrs Sex: Male : 1950 Arrival Date: 09/17/2022 Time: 16:22 Bed Waiting Private MD: Abraham Trejo V Diagnosis: ED Course: 09/17 16:22 Patient arrived in ED. am2 16:22 Abraham Trejo MD is Private Physician. am2 16:44 Abraham Trejo MD is Attending Physician. ll1 Administered Medications: No medications were administered Outcome: 16:43 Condition: want to go see his material man tomorrow instead of being seen in ED today. ll1 16:44 Patient left the ED. ll1 Signatures: Lisset Underwood Lynsay, RN RN ll1
== END 2022-09-17 16:44 | disposition left against medical advice (07) ==
LOC: ER 16:19
DX: Z02.9 Encounter for administrative examinations, unspecified (principal)

== ENCOUNTER 2024-04-06 21:08 | Emergency (ER) | payer OTHER ==
[2024-04-06] MEDS ORDERED: ALBUTEROL 2.5 MG/3 ML NEB SOL ONE (22:22)
[2024-04-06] MEDS ORDERED: IPRATROPIUM BROM 0.5MG/2.5ML ONE (22:22)
[2024-04-06 22:43] LABS: Absolute Eosinophils 0.4 K/uL (0-0.5); Absolute Lymphocytes (CBC) 1.3 K/uL (0.7-4.9); Absolute Monocytes 0.5 K/uL (0.1-1.3); Basophils % 0.6 % (0-1.3); Eosinophils % 5.7 % (0-4.4); Hematocrit 31.2 % (39.6-49.0); Hemoglobin 10.9 g/dL (13.6-17.9); Lymphocytes % 21.5 % (15.3-44.8); MCH 29.3 pg (27.0-35.0); MCHC 34.9 g/dL (32.0-36.0); MCV 83.8 fL (80-100); MPV 8.3 fL (7.6-11.3); Monocytes % 8.8 % (3.3-12.3); Neutrophils % 63.4 % (41.7-73.7); Nucleated Red Blood Cells % 0.1 % (0-0); Platelets 146 thou/uL (152-406); RBC Red Blood Cell Count 3.72 M/uL (4.33-5.43); Red Cell Distribution Width 16.3 % (12.1-15.2)
[2024-04-06 22:57] LABS: ALT/SGPT 17 U/L (16-61); Albumin 3.4 g/dL (3.4-5.0); Albumin/Globulin Ratio 0.9 (1.1-1.8); Alkaline Phosphatase 109 U/L (45-117); Anion Gap 9.7 mEq/L (5.0-15.0); BUN Blood Urea Nitrogen 18 mg/dL (7-18); Bicarbonate 25 mEq/L (21-32); Bilirubin Direct 0.3 mg/dL (0-0.2); Bilirubin Indirect, Calculated 0.5 mg/dL (0.2-0.8); Bilirubin Total 0.8 mg/dL (0.2-1.0); Globulin 3.6 g/dL (2.3-3.5); Glomerular Filtration Rate 43 ml/min (=/>90); Glucose Level 351 mg/dL (74-106); Magnesium 1.6 mg/dL (1.6-2.4); NT PRO-BNP 188 pg/mL (<125); Potassium 3.7 mEq/L (3.5-5.1); Sodium Level 136 mEq/L (136-145); Troponin High Sensitivity 9.3 pg/mL (<58.9)
[2024-04-06 23:41] LABS: AST/SGOT < 10 U/L (15-37)
--- NOTE | 2024-04-06 23:57 | ER ---
Nurse's Notes [facility] Name: Marcelino Mccall Age: 74 yrs Sex: Male : 1950 Arrival Date: 04/06/2024 Time: 21:08 Bed 15 Private MD: Diagnosis: Cough Presentation: 04/06 21:59 Chief complaint: Patient states: I started having cough congestion on Sunday went to 8 urgent care today and had xray. the xray report is showing new onset chf.i ALSO FEEL A LITTLE SHORT OF BREATH. Coronavirus screen: At this time, the client does not indicate any symptoms associated with coronavirus-19. Ebola Screen: Patient negative for fever greater than or equal to 101.5 degrees Fahrenheit, and additional compatible Ebola Virus Disease symptoms Patient denies exposure to infectious person. Patient denies travel to an Ebola-affected area in the 21 days before illness onset. No symptoms or risks identified at this time. Initial Sepsis Screen: Does the patient meet any 2 criteria? No. Patient's initial sepsis screen is negative. Does the patient have a suspected source of infection? No. Patient's initial sepsis screen is negative. Risk Assessment: Do you want to hurt yourself or someone else? Patient reports no desire to harm self or others. Onset of symptoms was April 02, 2024 at 12:00. 21:59 Method Of Arrival: Ambulatory 8 21:59 Acuity: SUZI 2 bm8 Triage Assessment: 22:02 General: Appears in no apparent distress. uncomfortable, Behavior is calm, cooperative, bm8 appropriate for age. Pain: Complains of pain in chest Pain currently is 6 out of 10 on a pain scale. EENT: No signs and/or symptoms were reported regarding the EENT system. Neuro: Level of Consciousness is awake, alert, obeys commands, Oriented to person, place, time, situation, Appropriate for age. Cardiovascular: No deficits noted. Respiratory: Airway is patent Trachea midline Respiratory effort is even, unlabored, Respiratory pattern is regular, symmetrical, Breath sounds with crackles in left lower lobe, right lower lobe, left posterior lower lobe and right posterior lower lobe. GI: No signs and/or symptoms were reported involving the gastrointestinal system. : No signs and/or symptoms were reported regarding the genitourinary system. Derm: No signs and/or symptoms reported regarding the dermatologic system. Musculoskeletal: No signs and/or symptoms reported regarding the musculoskeletal system. Historical: - Allergies: 22:02 Dilaudid; bm8 22:02 Ibuprofen; bm8 22:02 Iodine; bm8 22:02 Levaquin; bm8 22:02 Morphine; bm8 22:02 SHELLFISH; bm8 - PMHx: 22:02 diabetes mellitus; Hypercholesterolemia; Liver disease; stroke 2020; balance deficits; bm8 - Immunization history:: Adult Immunizations unknown. - Infectious Disease History:: Denies. - Social history:: Smoking status: Patient denies any tobacco usage or history of. - Family history:: not pertinent. Screenin/26 00:11 [facility] ED Fall Risk Assessment (Adult) History of falling in the last 3 months, pc2 including since admission No falls in past 3 months (0 pts) Confusion or Disorientation No (0 pts) Intoxicated or Sedated Impaired Gait No (0 pts) Mobility Assist Device Used No (0 pt) Altered Elimination No (0 pt) Score/Fall Risk Level 0 - 2 = Low Risk Oriented to surroundings, Hourly rounding (assess needs \T\ fall precautionary measures) done. Abuse screen: Denies threats or abuse. Denies injuries from another. Nutritional screening: No deficits noted. Tuberculosis screening: No symptoms or risk factors identified. Assessment: 04/06 22:05 General: Appears uncomfortable, Behavior is calm, cooperative. Pain: Complains of pain ha1 in chest when coughing Pain does not radiate. Pain at worst was 7 out of 10 on a pain scale. Quality of pain is described as sharp. Neuro: Level of Consciousness is awake, alert, obeys commands, Oriented to person, place, time, situation. Cardiovascular: Heart tones S1 S2 present Capillary refill < 3 seconds Patient's skin is warm and dry. Respiratory: Airway is patent Respiratory effort is even, unlabored, Respiratory pattern is regular, symmetrical. Respiratory: Reports pain with cough Breath sounds with crackles bilaterally. in left posterior lower lobe and right posterior lower lobe. Derm: Skin is pink, warm \T\ dry. 23:00 Reassessment: Patient and/or family updated on plan of care and expected duration. Pain ha1 level reassessed. Patient is alert, oriented x 3, equal unlabored respirations, skin warm/dry/pink. Patient states feeling better. Patient states symptoms have improved. 04/07 00:00 Reassessment: Patient and/or family updated on plan of care and expected duration. Pain ha1 level reassessed. Patient is alert, oriented x 3, equal unlabored respirations, skin warm/dry/pink. Vital Signs: 04/06 21:59 BP 150 / 85; Pulse 83; Resp 19; Temp 98.1; Pulse Ox 100% ; Weight 99.79 kg; Height 6 bm8 ft. 1 in. ; Pain 6/10; 23:00 BP 126 / 61; Pulse 79; Resp 17 S; Pulse Ox 97% on R/A; ha1 04/07 00:10 BP 130 / 70; Pulse 80; Resp 18; Pulse Ox 99% on R/A; pc2 04/06 21:59 Body Mass Index 29.03 (99.79 kg, 185.42 cm) bm8 04/06 21:59 Pain Scale: Adult bm8 ED Course: 04/06 21:12 Patient arrived in ED. jj6 21:18 Jam Pinto MD is Attending Physician. rt 22:02 Triage completed. bm8 22:04 Arm band placed on left wrist. bm8 22:06 Kimmie Gimenez, RADHA is Primary Nurse. ha1 22:25 Inserted saline lock: 20 gauge in right antecubital area, using aseptic technique. ha1 Blood collected. Flushed with 10 mL NS. 22:30 Patient has correct armband on for positive identification. pc2 22:30 CBC with Diff Sent. ha1 22:30 LFT's Sent. ha1 22:30 Magnesium Sent. ha1 22:30 NT PRO-BNP Sent. ha1 22:30 Troponin HS Sent. ha1 22:31 Basic Metabolic Panel Sent. ha1 23:03 Chest Pa And Lat (2 Views) XRAY In Process Unspecified. EDMS 04/07 00:10 IV discontinued, intact, bleeding controlled, No redness/swelling at site. Pressure pc2 dressing applied. 00:12 Provided Education on: discharge instructions and prescription. pc2 00:12 No provider procedures requiring assistance completed. pc2 Administered Medications: 04/06 22:30 Drug: DuoNeb Nebulize (3:1) (2.5 mg - 0.5 mg) 3 ml Nebulizer once Route: Nebulizer; ha1 23:00 Follow up: Response: No adverse reaction; Marked relief of symptoms pc2 23:00 Follow up: Response: No adverse reaction; Marked relief of symptoms ha1 Medication: 04/07 00:12 VIS not applicable for this client. pc2 Outcome: 04/06 23:57 Discharge ordered by . rt 04/07 00:12 Discharged to home ambulatory, with family, pc2 Condition: stable Discharge instructions given to patient, family, Instructed on discharge instructions, follow up and referral plans. medication usage, Demonstrated understanding of instructions, follow-up care, medications, Prescriptions given X 2, 00:14 Patient left the ED. pc2 Signatures: Dispatcher [employer] EDMS Sandy Caity jj6 Kimmie Gimenez RN RN ha1 Jam Pinto MD MD rt Emil Matthews, RN RN bm8 Elizabeth Limon, RN RN pc2 Corrections: (The following items were deleted from the chart) 00:13 00:00 BP 130 / 70; Pulse 79bpm; Resp 17bpm; Spontaneous; Pulse Ox 97% RA; ha1 ha1
--- NOTE | 2024-04-06 23:57 | EDPHYS ---
Physician Documentation [facility] Name: Marcelino Mccall Age: 74 yrs Sex: Male : 1950 Arrival Date: 04/06/2024 Time: 21:08 Bed 15 Private MD: ED Physician Jam Pinto HPI: 04/07 04:45 This 74 yrs old Male presents to ER via Ambulatory with complaints of Cough, rt Congestion, Chest Wall Pain. 04:45 Patient was seen at an urgent care for cough, reported sinus congestion. Reports a rt mildly pleuritic pain when he coughs. Denies any difficulty breathing. Patient states that his x-ray revealed pulmonary vascular congestion. Denies other acute complaints at this time, symptoms are mild in severity, no other aggravating or alleviating factors.. Historical: - Allergies: 04/06 22:02 Dilaudid; bm8 22:02 Ibuprofen; bm8 22:02 Iodine; bm8 22:02 Levaquin; bm8 22:02 Morphine; bm8 22:02 SHELLFISH; bm8 - PMHx: 22:02 diabetes mellitus; Hypercholesterolemia; Liver disease; stroke 2020; balance deficits; bm8 - Immunization history:: Adult Immunizations unknown. - Infectious Disease History:: Denies. - Social history:: Smoking status: Patient denies any tobacco usage or history of. - Family history:: not pertinent. ROS: 04/07 04:45 Constitutional: Negative for fever, chills, and weight loss, Cardiovascular: Negative rt for chest pain, palpitations, and edema, Abdomen/GI: Negative for abdominal pain, nausea, vomiting, diarrhea, and constipation, MS/Extremity: Negative for injury and deformity, Skin: Negative for injury, rash, and discoloration, Neuro: Negative for headache, weakness, numbness, tingling, and seizure, Respiratory: Positive for cough, Negative for shortness of breath, Exam: 04:45 Constitutional: This is a well developed, well nourished patient who is awake, alert, rt and in no acute distress. Head/Face: Normocephalic, atraumatic. Chest/axilla: Normal chest wall appearance and motion. Nontender with no deformity. No lesions are appreciated. Cardiovascular: Regular rate and rhythm with a normal S1 and S2. No gallops, murmurs, or rubs. Normal PMI, no JVD. No pulse deficits. Respiratory: Lungs have equal breath sounds bilaterally, clear to auscultation and percussion. No rales, rhonchi or wheezes noted. No increased work of breathing, no retractions or nasal flaring. Abdomen/GI: Soft, non-tender, with normal bowel sounds. No distension or tympany. No guarding or rebound. No evidence of tenderness throughout. Skin: Warm, dry with normal turgor. Normal color with no rashes, no lesions, and no evidence of cellulitis. MS/ Extremity: Pulses equal, no cyanosis. Neurovascular intact. Full, normal range of motion. Neuro: Awake and alert, GCS 15, oriented to person, place, time, and situation. Cranial nerves II-XII grossly intact. Motor strength 5/5 in all extremities. Sensory grossly intact. Cerebellar exam normal. Normal gait. 04:45 ECG was reviewed by the Attending Physician. Vital Signs: 04/06 21:59 BP 150 / 85; Pulse 83; Resp 19; Temp 98.1; Pulse Ox 100% ; Weight 99.79 kg; Height 6 bm8 ft. 1 in. ; Pain 6/10; 23:00 BP 126 / 61; Pulse 79; Resp 17 S; Pulse Ox 97% on R/A; ha1 04/07 00:10 BP 130 / 70; Pulse 80; Resp 18; Pulse Ox 99% on R/A; pc2 04/06 21:59 Body Mass Index 29.03 (99.79 kg, 185.42 cm) bm8 04/06 21:59 Pain Scale: Adult bm8 MDM: 04/06 22:06 Patient medically screened. rt 04/07 04:45 Differential Diagnosis: Other Bronchitis, cough, pneumonia, CHF. Data reviewed: vital rt signs, nurses notes, lab test result(s), EKG, radiologic studies. Consideration of Admission/Observation Escalation of care including admission/observation considered. Only mildly elevated BNP, clear chest x-ray, unremarkable labs, vital signs, stable for outpatient care.. I considered the following discharge prescriptions or medication management in the emergency department Medications were administered in the Emergency Department. See MAR. Independent interpretation of the following test(s) in the Emergency Department X-Ray: My interpretation is No edema seen on interpretation of x-ray images. Care significantly affected by the following chronic conditions: Diabetes. Counseling: I had a detailed discussion with the patient and/or guardian regarding the historical points, exam findings, and any diagnostic results supporting the discharge/admit diagnosis, lab results, radiology results, the need for outpatient follow up. Response to treatment: the patient's symptoms have markedly improved after treatment. 04/06 22:05 Order name: Basic Metabolic Panel; Complete Time: 23:50 rt 04/06 22:05 Order name: CBC with Diff; Complete Time: 23:50 rt 04/06 22:05 Order name: LFT's; Complete Time: 23:50 rt 04/06 22:05 Order name: Magnesium; Complete Time: 23:50 rt 04/06 22:05 Order name: NT PRO-BNP; Complete Time: 23:50 rt 04/06 22:05 Order name: Troponin HS; Complete Time: 23:50 rt 04/06 22:05 Order name: Chest Pa And Lat (2 Views) XRAY rt 04/06 22:05 Order name: EKG; Complete Time: 22:06 rt 04/06 22:05 Order name: Cardiac monitoring; Complete Time: 22:20 rt 04/06 22:05 Order name: EKG - Nurse/Tech; Complete Time: 22:20 rt 04/06 22:05 Order name: IV Saline Lock; Complete Time: 22:30 rt 04/06 22:05 Order name: Labs collected and sent; Complete Time: 22:31 rt 04/06 22:05 Order name: O2 Per Protocol; Complete Time: 22:20 rt 04/06 22:05 Order name: O2 Sat Monitoring; Complete Time: 22:21 rt EC:45 Rate is 81 beats/min. Rhythm is regular, Normal Sinus Rhythm with Occasional PVCs, rt Nonspecific intraventricular block. Left axis deviation noted. QRS interval is normal. QT interval is normal. No Q waves. Administered Medications: 04/06 22:30 Drug: DuoNeb Nebulize (3:1) (2.5 mg - 0.5 mg) 3 ml Nebulizer once Route: Nebulizer; ha1 23:00 Follow up: Response: No adverse reaction; Marked relief of symptoms pc2 23:00 Follow up: Response: No adverse reaction; Marked relief of symptoms ha1 Disposition Summary: 04/06/24 23:57 Discharge Ordered Notes: Location: Home rt Problem: new rt Symptoms: have improved rt Condition: Stable rt Diagnosis - Cough rt Followup: rt - With: Private Physician - When: 2 - 3 days - Reason: Discharge Instructions: - Discharge Summary Sheet rt - Acute Bronchitis, Adult rt - Cough, Adult rt Forms: - Medication Reconciliation Form rt - Antibiotic Education rt - Prescription Opioid Use rt - Patient Portal Instructions rt - Leadership Thank You Letter rt Prescriptions: - albuterol sulfate 90 mcg/actuation Inhalation HFA Aerosol Inhaler - inhale 2 puff INHALATION route every 4 hours as needed; 2 Each; Refills: 0, rt Product Selection Permitted - azithromycin 250 mg Oral tablet - take 1 dose pack ORAL route as directed on dose pack For 250 mg dose pack: take rt 500 mg today (day 1), then 250 mg for 4 days (days 2-5); 6 tablet; Refills: 0, Product Selection Permitted Signatures: Dispatcher [employer] Kimmie Hewitt RN RN ha1 Jam Pinto MD MD rt Emil Matthews RN RN bm8 Elizabeth Limon RN pc2
[2024-04-07 01:04] VITALS: TEMP 98.1
[2024-04-07 01:06] VITALS: BP 130/70; O2SAT 99
--- NOTE | 2024-04-07 09:59 | EKG ---
Test Date: 2024-04-06 Test Time: 22:14:33 Agriculture Inspector: JOE MEASUREMENT RESULTS: Intervals: Rate: 81 IN: 168 QRSD: 126 QT: 418 QTc: 485 [place]: P: 62 IN: 168 QRS: -63 T: 83 INTERPRETIVE STATEMENTS: Sinus rhythm with premature supraventricular complexes Left axis deviation Nonspecific intraventricular block Abnormal ECG Compared to ECG 10/06/2021 16:24:02 Atrial premature complex(es) now present Left-axis deviation now present Right bundle-branch block no longer present Left anterior fascicular block no longer present Bifascicular block no longer present Myocardial infarct finding no longer present Electronically Signed On 04-07-24 09:58:17 CDT by Abhi Mclaughlin
--- NOTE | 2024-04-07 14:07 | RAD REPORT ---
EXAM DESCRIPTION: RAD - Chest Pa And Lat (2 Views) - 04/06/2024 11:01 pm CLINICAL HISTORY: Cough. TECHNIQUE: Frontal and lateral views of the chest. COMPARISON: No relevant prior studies available. FINDINGS: Lungs: Unremarkable. No consolidation. Pleural space: Unremarkable. No pneumothorax. Heart: Unremarkable. No cardiomegaly. Mediastinum: Unremarkable. Normal mediastinal contour. Bones/joints: Total reverse shoulder arthroplasty hardware on the right. Multilevel spondylosis. No acute fracture. Vasculature: Thoracic aortic atherosclerosis. IMPRESSION: No acute disease. Electronically signed by: Rica Newell MD 04/06/2024 11:31 PM CDT Due to temporary technical issues with the PACS/Fluency reporting system, reports are being signed by the in house radiologist without review as a courtesy to ensure prompt reporting. The interpreting r adiologist is fully responsible for the content of the report.
== END 2024-04-07 00:14 | disposition home or self-care (01) ==
LOC: ER 21:08
DX: R05.9 Cough, unspecified (principal); R07.9 Chest pain, unspecified
CPT/HCPCS: 93005; 85025; 80048; 36415; 83735; 80076; 84484; 83880; 71046; 99284; J7613; J7644

== ENCOUNTER 2024-10-27 06:28 | Emergency (ER) | payer OTHER ==
[2024-10-27] MEDS ORDERED: GABAPENTIN 300 MG CAP ONE (07:33)
--- NOTE | 2024-10-27 08:14 | RAD REPORT ---
EXAMINATION: US LEFT LOWER EXTREMITY VENOUS DOPPLER CLINICAL INDICATION: PAIN TECHNIQUE: Complete bilateral duplex sonography of the LEFT lower extremity veins was performed. The examination included compression for vein patency, color Doppler imaging and flow augmentation in response to distal compression of the distal external iliac, common femoral, femoral, popliteal, tibi al, and great and small saphenous veins. COMPARISON: No prior exam. FINDINGS: Duplex sonography testing of the veins of the LEFT lower extremity was performed. Color flow imaging shows hypoechoic nonexpansile thrombus involving the superficial femoral vein and the popliteal vein, with a noncompressible segment along the mid superficial femoral vein. The remainder of these v eins are partially compressible. The posterior tibial veins are patent. No superficial venous thrombosis. IMPRESSION: Mostly subocclusive superficial femoral through popliteal vein thrombosis, except for a segment of oc clusive thrombus along the mid superficial femoral vein. Given the history, the thrombus may be subacute or chronic.
--- NOTE | 2024-10-27 08:33 | EDPHYS ---
Physician Documentation [facility] Name: Marcelino Mccall Age: 74 yrs Sex: Male : 1950 Arrival Date: 10/27/2024 Time: 06:28 Bed 13 Private MD: ED Physician Jonathon Grady HPI: 10/27 08:08 This 74 yrs old Male presents to ER via Ambulatory with complaints of LEFT FOOT ms3 PAIN/SWELLING. 08:08 74-year-old male with past medical history of diabetes, hypercholesterolemia, liver ms3 disease, CVA presents to the emergency department for left foot pain that began at 330 this morning. Patient states the pain is burning/sharp and rated 10/10 at its worst. He denies any fevers or chills.. Historical: - Allergies: 06:42 Dilaudid; lg3 06:42 Ibuprofen; lg3 06:42 Iodine; lg3 06:42 Levaquin; lg3 06:42 Morphine; lg3 06:42 SHELLFISH; lg3 - Home Meds: 06:42 Unable to obtain [Active]; lg3 - PMHx: 06:42 diabetes mellitus; Hypercholesterolemia; Liver disease; stroke 2020; balance deficits; lg3 - PSHx: 06:42 ventral hernia repair X4 (stroke 2020; balance deficits ); rhianna hip (stroke 2020; lg3 balance deficits ); ankle (stroke 2020; balance deficits ); knee (stroke 2020; balance deficits ); shoulder (stroke 2020; balance deficits ); Appendectomy; - Immunization history:: Adult Immunizations up to date. - Infectious Disease History:: Denies. - Social history:: Smoking status: Patient denies any tobacco usage or history of. Patient/guardian denies using alcohol, street drugs. ROS: 08:08 Constitutional: Negative for fever, and chills. Cardiovascular: Negative for chest ms3 pain, and palpitations. Respiratory: Negative for shortness of breath, cough, wheezing, and pleuritic chest pain, Abdomen/GI: Negative for abdominal pain, nausea, vomiting, diarrhea, and constipation, 08:08 MS/extremity: Positive for Left foot pain, Exam: 08:08 Constitutional: This is a well developed, well nourished patient who is awake, alert, ms3 and in no acute distress. Cardiovascular: Regular rate and rhythm with a normal S1 and S2. No gallops, murmurs, or rubs. Normal PMI, no JVD. No pulse deficits. Respiratory: Lungs have equal breath sounds bilaterally, clear to auscultation and percussion. No rales, rhonchi or wheezes noted. No increased work of breathing, no retractions or nasal flaring. Abdomen/GI: Soft, non-tender, with normal bowel sounds. No distension or tympany. No guarding or rebound. No evidence of tenderness throughout. Skin: Warm, dry with normal turgor. Normal color with no rashes, no lesions, and no evidence of cellulitis. MS/ Extremity: Pulses equal, no cyanosis. Neurovascular intact. Full, normal range of motion. Vital Signs: 06:40 BP 147 / 84; Pulse 58; Resp 16 S; Temp 98.1(O); Pulse Ox 100% on R/A; Weight 108.86 kg lg3 (R); Height 5 ft. 9 in. (R); Pain 10/10; 07:24 BP 147 / 73; Pulse 59; Pulse Ox 100% on R/A; ap3 06:40 Body Mass Index 35.44 (108.86 kg, 175.26 cm) lg3 06:40 Pain Scale: Adult lg3 MDM: 07:23 Medical Screening Exam initiated ms3 08:08 Differential diagnosis: cellulitis, DVT versus peripheral neuropathy. ms3 08:33 Data reviewed: vital signs, nurses notes, radiologic studies, and as a result, I will ms3 discharge patient. Management of patient was discussed with the following: Primary Care Provider: Dr. Trejo. I considered the following discharge prescriptions or medication management in the emergency department Medications were administered in the Emergency Department. See MAR. Historians other than the Patient: Spouse/Significant Other: Patient's . Counseling: I had a detailed discussion with the patient and/or guardian regarding the historical points, exam findings, and any diagnostic results supporting the discharge/admit diagnosis, radiology results, the need for outpatient follow up, an communication manager, to return to the emergency department if symptoms worsen or persist or if there are any questions or concerns that arise at home. Special discussion: I discussed with the patient/guardian in detail that at this point there is no indication for admission to the hospital. It is understood, however, that if the symptoms persist or worsen the patient needs to return immediately for re-evaluation. ED course: Discussed case with Dr. Trejo and he will call patient in a prescription for Eliquis. Discussed prescribing gabapentin from the emergency department and Dr. Trejo states he would rather see patient this week and evaluate.. 10/27 07:24 Order name: Extremity Venous Uni Ltd US; Complete Time: 08:19 ms3 Administered Medications: 07:35 Drug: Gabapentin PO 300 mg PO once Route: PO; ap3 08:48 Follow up: Response: No adverse reaction ap3 08:48 Drug: Eliquis PO 10 mg PO once Route: PO; ap3 08:52 Follow up: Response: Medication administered at discharge. ap3 Disposition Summary: 10/27/24 08:32 Discharge Ordered Notes: Location: Home ms3 Condition: Stable ms3 Diagnosis - Deep venous thrombosis ms3 - Left foot pain ms3 Followup: ms3 - With: Abraham Trejo MD - When: 2 - 3 days - Reason: Recheck today's complaints Discharge Instructions: - Discharge Summary Sheet ms3 - Deep Vein Thrombosis ms3 Forms: - Medication Reconciliation Form ms3 - Antibiotic Education ms3 - Prescription Opioid Use ms3 - Patient Portal Instructions ms3 - Leadership Thank You Letter ms3 Signatures: Dispatcher [employer] Lisset Craig RN RN ap3 Ashley Lucero RN RN lg3 Jonathon Grady DO DO ms3 Corrections: (The following items were deleted from the chart) 07:25 07:25 Extremity Venous Uni Ltd+[email or web address] ordered. EDMS EDMS
--- NOTE | 2024-10-27 08:33 | ER ---
Nurse's Notes [facility] Name: Marcelino Mccall Age: 74 yrs Sex: Male : 1950 Arrival Date: 10/27/2024 Time: 06:28 Bed 13 Private MD: Diagnosis: Deep venous thrombosis;Left foot pain Presentation: 10/27 06:40 Chief complaint: Patient states: shooting pain in right foot onset 0330. pain 10/10. lg3 Coronavirus screen: Client denies travel out of the [place] in the last 14 days. At this time, the client does not indicate any symptoms associated with coronavirus-19. Ebola Screen: No symptoms or risks identified at this time. Initial Sepsis Screen: Does the patient meet any 2 criteria? No. Patient's initial sepsis screen is negative. Does the patient have a suspected source of infection? No. Patient's initial sepsis screen is negative. Risk Assessment: Do you want to hurt yourself or someone else? Patient reports no desire to harm self or others. Onset of symptoms was October 27, 2024. 06:40 Method Of Arrival: Ambulatory lg3 06:40 Acuity: SUZI 4 lg3 Triage Assessment: 06:42 General: Appears in no apparent distress. uncomfortable, Behavior is calm, cooperative. lg3 Pain: Complains of pain in right foot Pain does not radiate. Pain currently is 10 out of 10 on a pain scale. Pain began suddenly. EENT: No deficits noted. No signs and/or symptoms were reported regarding the EENT system. Neuro: No deficits noted. Francois Agitation-Sedation Scale (RASS): 0 - Alert and Calm Level of Consciousness is awake, alert, Oriented to person, place. Cardiovascular: No deficits noted. Denies chest pain, shortness of breath, Capillary refill < 3 seconds Clubbing of nail beds is absent. Respiratory: No deficits noted. Airway is patent Respiratory effort is even, unlabored, Respiratory pattern is regular, symmetrical, Breath sounds are clear bilaterally. GI: No deficits noted. No signs and/or symptoms were reported involving the gastrointestinal system. : No signs and/or symptoms were reported regarding the genitourinary system. Derm: No deficits noted. No signs and/or symptoms reported regarding the dermatologic system. Skin is intact, is healthy with good turgor, Skin is dry, Skin is normal, Skin temperature is warm. Musculoskeletal: Circulation, motion, and sensation intact. Range of motion: intact in all extremities, Reports pain in right foot. Historical: - Allergies: 06:42 Dilaudid; lg3 06:42 Ibuprofen; lg3 06:42 Iodine; lg3 06:42 Levaquin; lg3 06:42 Morphine; lg3 06:42 SHELLFISH; lg3 - Home Meds: 06:42 Unable to obtain [Active]; lg3 - PMHx: 06:42 diabetes mellitus; Hypercholesterolemia; Liver disease; stroke 2020; balance deficits; lg3 - PSHx: 06:42 ventral hernia repair X4 (stroke 2020; balance deficits ); rhianna hip (stroke 2020; lg3 balance deficits ); ankle (stroke 2020; balance deficits ); knee (stroke 2020; balance deficits ); shoulder (stroke 2020; balance deficits ); Appendectomy; - Immunization history:: Adult Immunizations up to date. - Infectious Disease History:: Denies. - Social history:: Smoking status: Patient denies any tobacco usage or history of. Patient/guardian denies using alcohol, street drugs. Screenin:16 Abuse screen: Denies threats or abuse. Nutritional screening: No deficits noted. ap3 Tuberculosis screening: No symptoms or risk factors identified. 08:50 [facility] ED Fall Risk Assessment (Adult) History of falling in the last 3 months, ap3 including since admission No falls in past 3 months (0 pts) Confusion or Disorientation No (0 pts) Intoxicated or Sedated No (0 pts) Impaired Gait No (0 pts) Mobility Assist Device Used No (0 pt) Altered Elimination No (0 pt) Score/Fall Risk Level 0 - 2 = Low Risk Oriented to surroundings, Maintained a safe environment, Educated pt \T\ family on fall prevention, incl call for assistance when getting out of bed, Assessed \T\ reinforced patient's understanding of fall precautions, Hourly rounding (assess needs \T\ fall precautionary measures) done, Used ambulatory aids as needed (educated on \T\ assisted with). Assessment: 07:15 General: Appears comfortable, Behavior is calm, cooperative, appropriate for age. Pain: ap3 Complains of pain in left foot Is intermittent. Neuro: Level of Consciousness is awake, alert, obeys commands, Oriented to person, place, time, situation, Appropriate for age. Cardiovascular: Patient's skin is warm and dry. Respiratory: Airway is patent Respiratory effort is even, unlabored, Respiratory pattern is regular, symmetrical. Vital Signs: 06:40 BP 147 / 84; Pulse 58; Resp 16 S; Temp 98.1(O); Pulse Ox 100% on R/A; Weight 108.86 kg lg3 (R); Height 5 ft. 9 in. (R); Pain 10/10; 07:24 BP 147 / 73; Pulse 59; Pulse Ox 100% on R/A; ap3 06:40 Body Mass Index 35.44 (108.86 kg, 175.26 cm) lg3 06:40 Pain Scale: Adult lg3 ED Course: 06:30 Patient arrived in ED. jj6 06:42 Triage completed. lg3 06:42 Arm band placed on right wrist. lg3 07:05 Jonathon Grady DO is Attending Physician. ms3 07:11 Lisset Vines, RADHA is Primary Nurse. ap3 07:16 Bed in low position. Call light in reach. Side rails up X 1. Adult w/ patient. Client ap3 placed on continuous cardiac and pulse oximetry monitoring. NIBP monitoring applied. satellite project site monitor on. Pulse ox on. NIBP on. 07:51 Extremity Venous Uni Ltd US In Process Unspecified. EDMS 08:32 Abraham Trejo MD is Referral Physician. ms3 08:51 Provided Education on: discharge instructions. ap3 08:51 No provider procedures requiring assistance completed. Patient did not have IV access ap3 during this emergency room visit. Administered Medications: 07:35 Drug: Gabapentin PO 300 mg PO once Route: PO; ap3 08:48 Follow up: Response: No adverse reaction ap3 08:48 Drug: Eliquis PO 10 mg PO once Route: PO; ap3 08:52 Follow up: Response: Medication administered at discharge. ap3 Medication: 08:52 VIS not applicable for this client. ap3 Outcome: 08:32 Discharge ordered by . ms3 08:51 Discharged to home ambulatory, with family, ap3 08:51 Condition: good 08:51 Discharge instructions given to patient, family, Instructed on discharge instructions, follow up and referral plans. Demonstrated understanding of instructions, follow-up care, 08:53 Patient left the ED. ap3 Signatures: Dispatcher [employer] Lisset Craig, RADHA RN ap3 Ashley Lucero RN RN lg3 Jonathon Grady DO DO ms3 Caity Delgado jj6
[2024-10-27] MEDS ORDERED: APIXABAN 5 MG TABLET ONE (08:44)
[2024-10-27 08:57] VITALS: TEMP 98.1; O2SAT 100
[2024-10-27 08:58] VITALS: BP 147/73
== END 2024-10-27 08:53 | disposition home or self-care (01) ==
LOC: ER 06:28
DX: I82.412 Acute embolism and thrombosis of left femoral vein (principal); I82.432 Acute embolism and thrombosis of left popliteal vein
CPT/HCPCS: 93971; 99284

== ENCOUNTER 2024-11-24 15:27 | Inpatient (IN) | payer OTHER ==
[2024-11-24] MEDS ORDERED: DIPHENHYDRAMINE 25 MG TAB/CAP PO PRN (16:39)
[2024-11-24] MEDS ORDERED: POLYETHYL GLY 3350 17 GM/DOSE PO PRN (16:41)
[2024-11-24] MEDS: FLU (Fluarix Triv) TS24-25(6MOS UP)/PF 45 MCG/0.5 ML Syringe IM ONE (16:45)
[2024-11-24] MEDS: PNEUMOCOCCAL VACCINE 0.5 ML IMVAC ONE (17:00)
[2024-11-24] MEDS ORDERED: TRAMADOL HCL 50 MG TAB PO PRN (17:20)
[2024-11-24] MEDS: METRONIDAZOLE 500mg IVPB 500 MG/100 ML BAG IV SCH (17:46)
[2024-11-24] MEDS: ACETAMINOPHEN 325 MG TABLET PO PRN (17:55)
--- NOTE | 2024-11-24 18:38 | RAD REPORT ---
EXAMINATION: TWO VIEW CHEST XR CLINICAL INDICATION: Male, 74 years old. new admit TECHNIQUE: 2 view radiographs of the chest were performed. COMPARISON: 04/06/2024. FINDINGS: The lungs are well inflated and clear. No pneumothorax or sizable effusion. The heart is normal in si ze. Mediastinal contours are unremarkable. IMPRESSION: No acute or significant abnormalities.
--- NOTE | 2024-11-24 19:21 | RAD REPORT ---
EXAM: CT CHEST, ABDOMEN AND PELVIS WITHOUT CONTRAST CLINICAL INDICATION: Male, 74 years old. lower ABD pain/diverticulitis TECHNIQUE: CT chest, abdomen and pelvis was performed, without IV contrast, as per department protoco l. Axial, sagittal and coronal reconstructions were obtained. One or more of the following dose reduction techniques were used: Automated exposure control, adjustment of the mA and/or kV according to the patient size, and/or iterative reconstruction. Unless otherwise specified, incidental findings do not require dedicated imaging follow-up. COMPARISON: 07/03/2022. FINDINGS: The lack of intravenous contrast limits the sensitivity of this exam for evaluation of solid visceral organs, vascular structures, and retroperitoneum. Chest: LOWER NECK/CHEST WALL: Visualized thyroid gland and soft tissues are normal. LUNGS AND AIRWAYS: Airways are clear. No evidence of airspace or interstitial process. No nodules. PLEURA: No pleural effusion. No pneumothorax. Hemidiaphragms are normally positioned. MEDIASTINUM AND LYMPH NODES: No mediastinal mass or fluid collection. Normal size mediastinal, hilar, and axillary lymph nodes. THORACIC AORTA: Normal caliber and configuration. PULMONARY ARTERIES: Normal caliber. HEART: Trace pericardial effusion. Abdomen/Pelvis LIVER: Normal in size and nodular contour. No focal lesion. GALLBLADDER/BILE DUCTS: Radiodense layering calculi near the neck. No biliary ductal dilatation. PANCREAS: No mass, ductal dilation, or marzena-pancreatic fluid. SPLEEN: Normal size. No focal lesion. ADRENALS: Normal; no mass. KIDNEYS AND URETERS: Normal size and contour. No hydronephrosis. GASTROINTESTINAL TRACT: Stomach is non-dilated. Small bowel has normal course and caliber. Segmental proximal sigmoid colon wall thickening, with one or more inflamed diverticula, with adjacent fat stranding and trace fluid outlining the extra pubic space, and along the left lower paracolic gutter. PERITONEUM: Mild free fluid also in the perihepatic space.. LYMPH NODES: No lymphadenopathy. ABDOMINAL AORTA AND OTHER VESSELS: Normal caliber aorta and IVC. URINARY BLADDER: Normal contour. REPRODUCTIVE ORGANS: No pathologic process. MUSCULOSKELETAL: No acute or suspicious osseous abnormality. Bilateral hip arthroplasty with resultan t streak artifact. ADDITIONAL FINDINGS: Wide neck hernia along the upper anterior abdominal wall containing fat. IMPRESSION: Segmental wall thickening along the proximal sigmoid colon with background diverticulosis. Sequelae o f acute diverticulitis involving one or more diverticula along the segment, with trace free fluid, but no other evidence of complications. Sequelae of liver cirrhosis, cholelithiasis, and other incidental findings as above.
[2024-11-24 20:22] LABS: Hematocrit 30.9 % (39.6-49.0); Hemoglobin 11.1 g/dL (13.6-17.9); MCH 29.5 pg (27.0-35.0); MCHC 36.1 g/dL (32.0-36.0); MCV 81.7 fL (80-100); MPV 9.3 fL (7.6-11.3); Platelets 149 thou/uL (152-406); RBC Red Blood Cell Count 3.78 M/uL (4.33-5.43); Red Cell Distribution Width 15.8 % (12.1-15.2)
[2024-11-24 20:31] LABS: PT Prothrombin Time 18.7 SECONDS (10-13.0); PTT, Activated Partial Thromb 36.4 SECONDS (27.2-37.4); Protime INR 1.68
[2024-11-24] MEDS: INSULIN GLARGINE 100 UNIT/ML SQ SCH (21:00)
[2024-11-24] MEDS ORDERED: INSULIN ASPART SQ SCH (21:00)
[2024-11-24] MEDS ORDERED: INSULIN ASPART PROTAMINE SQ SCH (21:00)
[2024-11-24] MEDS ORDERED: HOME MED 1 EA UNK (Metformin Hcl [Metformin Hcl] 1,000 MG Tablet) PO SCH (21:00)
[2024-11-24] MEDS: HUMALOG MIX 75/25 100 UNITS/ML SQ SCH (21:00)
[2024-11-24] MEDS ORDERED: [UNRECOGNIZED DRUG - OTHER] SQ SCH (21:00)
[2024-11-24 21:06] LABS: Albumin 3.2 g/dL (3.4-5.0); Albumin/Globulin Ratio 0.9 (1.1-1.8); Anion Gap 10.1 mEq/L (5.0-15.0); Bilirubin Direct 0.3 mg/dL (0-0.2); Bilirubin Indirect, Calculated 0.6 mg/dL (0.2-0.8); Bilirubin Total 0.9 mg/dL (0.2-1.0); Globulin 3.4 g/dL (2.3-3.5); Magnesium 1.6 mg/dL (1.6-2.4); Phosphorus 2.3 mg/dL (2.5-4.9); Potassium 4.1 mEq/L (3.5-5.1); Protein, Total 6.6 g/dL (6.4-8.2); Thyroid Stimulating Hormone 1.62 uIU/mL (0.358-3.740)
[2024-11-24] MEDS: APIXABAN 5 MG TABLET PO SCH (21:23)
[2024-11-24] MEDS: DONEPEZIL HCL 5 MG TAB PO SCH (21:24)
[2024-11-24] MEDS: ATORVASTATIN 40 MG TAB PO SCH (21:24)
[2024-11-24] MEDS: CIPROFLOXACIN 400mg IV 400 MG/200 ML BAG IV SCH (21:24)
[2024-11-24] MEDS: MAGNESIUM SULFATE 1 gm IVPB 1 GM/100 ML BAG IV ONE (22:51)
[2024-11-25 04:09] LABS: Specific Gravity 1.023 (1.005-1.030); Sqamous Epithelial <5 /HPF (None Seen); Urine Bacteria None Seen /HPF (<20); Urine Bilirubin NEGATIVE (Negative); Urine Blood Negative (Negative); Urine Clarity Clear (Clear); Urine Color Yellow (Yellow); Urine Culture Reflex Order NOT NEEDED; Urine Glucose NEGATIVE (Negative); Urine Ketones NEGATIVE (Negative); Urine Microscopic Reflex YN ORDER UMIC; Urine Mucus Slight /HPF (None Seen); Urine Nitrite NEGATIVE (Negative); Urine Protein 1+ (Negative); Urine RBC <5 /HPF (None Seen); Urine Urobilinogen Normal (Normal); Urine WBC <5 /HPF (<5)
[2024-11-25 04:19] LABS: Hematocrit 28.9 % (39.6-49.0); Hemoglobin 10.4 g/dL (13.6-17.9); MCH 29.8 pg (27.0-35.0); MCHC 36.1 g/dL (32.0-36.0); MCV 82.5 fL (80-100); MPV 8.7 fL (7.6-11.3); Platelets 117 thou/uL (152-406); RBC Red Blood Cell Count 3.51 M/uL (4.33-5.43); Red Cell Distribution Width 15.6 % (12.1-15.2)
[2024-11-25 04:48] LABS: Magnesium 1.9 mg/dL (1.6-2.4)
[2024-11-25] MEDS: METFORMIN HCL 500 MG TAB PO SCH (08:34)
[2024-11-25] MEDS: TAMSULOSIN 0.4 MG SR CAP PO SCH (08:35)
[2024-11-25] MEDS: VENLAFAXINE HCL 75 MG TABLET PO SCH (08:36)
[2024-11-25] MEDS ORDERED: ENOXAPARIN 40 MG/0.4 ML SQ SCH (09:00)
[2024-11-25] MEDS: ONDANSETRON 4 MG/2 ML VIAL IV PRN (10:54)
--- NOTE | 2024-11-25 13:05 | P.PN ---
Subjective Date of Service: 11/25/24 Chief Complaint: FEELS LOT BETTER. Subjective: Improving HE IS IN MILD PAIN. LOT BETTER. HE IS ABLE TO AMBULATE. NO SE OF MEDS. Review of Systems 10-point ROS is otherwise unremarkable Physical Examination - Vital Signs Temperature: 97.9 F Blood Pressure: 142/74 Pulse: 63 Respirations: 16 Pulse Ox (%): 98 - Physical Exam General: Mild distress HEENT: Atraumatic, PERRLA, EOMI Neck: Supple, JVD not distended Respiratory: Clear to auscultation bilaterally, Normal air movement Cardiovascular: Regular rate/rhythm, Normal S1 S2 Gastrointestinal: Normal bowel sounds, No tenderness Musculoskeletal: No tenderness Integumentary: No rashes Neurological: Normal speech, Normal tone, Normal affect Lymphatics: No axilla or inguinal lymphadenopathy - Studies Laboratory Data (last 24 hrs) 11/25/24 11/25/24 11/24/24 04:11 04:11 20:00 WBC 6.20 Hgb 10.4 L Hct 28.9 L Plt Count 117 L PT INR APTT Sodium 138 139 Potassium 4.0 4.1 BUN 14 16 Creatinine 1.42 H 1.41 H Glucose 112 H 91 Phosphorus 2.3 L Magnesium 1.9 1.6 Total Bilirubin 0.9 AST 13 L ALT 26 Alkaline Phosphatase 108 11/24/24 11/24/24 20:00 20:00 WBC 8.90 Hgb 11.1 L Hct 30.9 L Plt Count 149 L PT 18.7 H INR 1.68 APTT 36.4 Sodium Potassium BUN Creatinine Glucose Phosphorus Magnesium Total Bilirubin AST ALT Alkaline Phosphatase Medications List Reviewed: Yes Assessment And Plan - Current Problems (Diagnosis) (1) Acute diverticulitis Current Visit: Yes Status: Acute Plan: CONT ABX CIPRO, FLAGYL DC IN AM POSSIBLE. STABLE. (2) History of DVT (deep vein thrombosis) Current Visit: Yes Status: Acute Plan: UNPROVOKED, RECENT WILL BE ON LIFE TIME AC.
[2024-11-25 16:50] VITALS: BMI 36.7
[2024-11-25 23:14] VITALS: O2SAT 98
[2024-11-26 08:31] VITALS: BP 133/66; TEMP 98
--- NOTE | 2024-11-26 13:01 | P.DS ---
Admission Date: 11/25/24 Discharge Date: 11/26/24 Disposition: ROUTINE DISCHARGE Reason for Admission: FEELS LOT BETTER. - Problems (1) Acute diverticulitis Status: Acute (2) History of DVT (deep vein thrombosis) Status: Acute Hospital Course: [facility] COMES WITH ABDOMEN PAIN LOWER AND WAS FOUND TO HAVE DIVERTICULITIS. HE HAS IMPROVED WELL ON CIPRO AND FLAGYL. HE IS TO AVOID SEEDS. STABLE FOR HOME. Vital Signs/Physical Exam: Temp Pulse Resp BP Pulse Ox 98.0 F 67 16 133/66 100 11/26/24 08:00 11/26/24 08:00 11/26/24 08:00 11/26/24 08:00 11/26/24 08:00 Laboratory Data at Discharge: WBC 6.20 thou/uL (4.3-10.9) 11/25/24 04:11 Hgb 10.4 g/dL (13.6-17.9) L 11/25/24 04:11 Hct 28.9 % (39.6-49.0) L 11/25/24 04:11 Plt Count 117 thou/uL (152-406) L 11/25/24 04:11 PT 18.7 SECONDS (10-13.0) H 11/24/24 20:00 INR 1.68 11/24/24 20:00 APTT 36.4 SECONDS (27.2-37.4) 11/24/24 20:00 Sodium 138 mEq/L (136-145) 11/25/24 04:11 Potassium 4.0 mEq/L (3.5-5.1) 11/25/24 04:11 BUN 14 mg/dL (7-18) 11/25/24 04:11 Creatinine 1.42 mg/dL (0.70-1.30) H 11/25/24 04:11 Glucose 112 mg/dL (74-106) H 11/25/24 04:11 Phosphorus 2.3 mg/dL (2.5-4.9) L 11/24/24 20:00 Magnesium 1.9 mg/dL (1.6-2.4) 11/25/24 04:11 Total Bilirubin 0.9 mg/dL (0.2-1.0) 11/24/24 20:00 AST 13 U/L (15-37) L 11/24/24 20:00 ALT 26 U/L (16-61) 11/24/24 20:00 Alkaline Phosphatase 108 U/L (45-117) 11/24/24 20:00 Home Medications: Metformin HCl 1,000 mg PO BID 10/06/21 Tamsulosin [Flomax*] 0.4 mg PO DAILY 10/06/21 Atorvastatin Calcium [Lipitor] 40 mg PO BEDTIME #90 tab 10/08/21 Donepezil [Aricept*] 10 mg PO BEDTIME tab 10/08/21 Apixaban [Eliquis] 5 mg PO BID 11/24/24 Insulin Glargine,Hum.rec.anlog [Lantus] 48 units SQ BEDTIME 11/24/24 Insuln Asp Prt/Insulin Aspart [Novolog Mix 70-30 Vial] 18 units SQ TID 11/24/24 Venlafaxine HCl [Effexor*] 75 mg PO DAILY 11/24/24 Followup: Abraham Trejo MD [Primary Care Provider] - 1 Week
--- NOTE | 2024-12-03 13:14 | EKG ---
Test Date: 2024-11-25 Test Time: 03:06:44 [employer]ork Lift Mechanic: KIRA MEASUREMENT RESULTS: Intervals: Rate: 96 ID: [id number] QRSD: 122 QT: 428 QTc: 540 [place]: P: 3 ID: [id number] QRS: -60 T: 90 INTERPRETIVE STATEMENTS: Normal sinus rhythm with sinus arrhythmia Left anterior fascicular block Septal infarct, age undetermined Abnormal ECG Compared to ECG 04/06/2024 22:14:33 Left anterior fascicular block now present Myocardial infarct finding now present Atrial premature complex(es) no longer present Left-axis deviation no longer present Electronically Signed On 12-03-24 12:51:40 CDT by Abhi Mclaughlin
== END 2024-11-26 09:58 | disposition home or self-care (01) | DRG 392 ==
LOC: INTOOBSV 15:27 → 2ND 15:27 → OBSVTOIN 11-25 20:40
PROVIDERS: ADMIT Internal Medicine; ATTEND Internal Medicine
DX: K57.92 Diverticulitis of intestine, part unspecified, without perforation or abscess without bleeding (principal); I82.409 Acute embolism and thrombosis of unspecified deep veins of unspecified lower extremity; Z79.01 Long term (current) use of anticoagulants
CPT/HCPCS: 36415; 71046; 71250; 74176; 80048; 80076; 81001; 82306; 82607; 82947; 83036; 83735; 84100; 84443; 85027; 85610; 85730; 93005; G0378; G0379; J0744; J1815; J2405; J3475